=== PATIENT | female | born 1970 | race Caucasian/White ===

== ENCOUNTER → 2020-02-03 13:11 | Outpatient (CLI) | payer BC, SELFPAY | PROVIDERS: PCP Family Medicine; Visit Provider Family Medicine | DX: G47.30 Sleep apnea, unspecified (principal); G47.00 Insomnia, unspecified; I10 Essential (primary) hypertension | CPT/HCPCS: G0399 ==

== ENCOUNTER → 2020-07-14 15:55 | Outpatient (POV) | payer BC, SELFPAY | PROVIDERS: Visit Provider Dermatology | DX: Z00.00 Encounter for general adult medical examination without abnormal findings (principal) ==

== ENCOUNTER → 2021-01-26 11:00 | Outpatient (CLI) | payer BC, SELFPAY ==
[2021-01-26 11:47] LABS: Basophils # 0.1 K/mm3 (0-0.2); Basophils % 0.5 % (0.1-2.0); Eosinophils # 0.1 K/mm3 (0.0-0.4); Eosinophils % 0.6 % (0.1-12.0); Hemoglobin 13.8 g/dL (12.2-16.2); Lymphocytes # 3.4 K/mm3 (0.7-4.5); Lymphocytes % 31.1 % (10-50); Mean Corpuscular HGB Conc 32.8 g/dL (31.8-35.4); Mean Corpuscular Hemoglobin 30.2 pg (27.0-31.2); Mean Corpuscular Volume 92.2 fl (81-99); Mean Platelet Volume 9.3 fl (7.4-10.4); Monocytes # 0.5 K/mm3 (0.1-1.0); Monocytes % 4.8 % (1.7-9.3); Neutrophils # 6.8 K/mm3 (1.8-7.8); Neutrophils % 62.9 % (37.0-80.0); Platelet Count 310 K/mm3 (142-424); Red Blood Count 4.55 M/mm3 (4.20-5.40); Red Cell Distribution Width 14.1 % (11.5-17.5); White Blood Count 10.8 K/mm3 (4.8-10.8)
== END ==
PROVIDERS: PCP Family Medicine; Visit Provider Family Medicine
DX: Z20.822 Contact with and (suspected) exposure to COVID-19 (principal)
CPT/HCPCS: 36415; 85025; C9803; U0003; U0005

== ENCOUNTER 2021-01-30 18:06 | Inpatient (IN) | payer BC, SELFPAY ==
[2021-01-30] VITALS (8 sets, daily range): BP systolic 145–197; BP diastolic 84–116; PULSE 72–95; RESP 16–19; TEMP 36.8–37.7; O2SAT 92–98; BMI 25.0; BMI 25.7
[2021-01-30 18:35] LABS: Microscopic, Urine URINE MICROSCOPIC (MICROSCOPIC)
[2021-01-30 18:37] LABS: Appearance,Urine CLEAR (Clear); Bilirubin,Urine Negative (Negative); Blood, Urine Negative (Negative); Color,Urine YELLOW (Yellow); Glucose,Urine (UA) Negative (Negative); Ketones,Urine TRACE (Negative); Leukocyte Esterase,Urine Negative (Negative); Nitrate,Urine Negative (Negative); PH,Urine 7.5 (5.0-8.5); Protein,Urine TRACE (Negative)
--- NOTE | 2021-01-30 18:41 | HMH.EDABDPAI ---
ED Disposition Condition on Discharge: Good - Critical Care Critical Care Time: No <Paulo Byers - Last Filed: 01/30/21 20:11> <Jamie Merritt - Last Filed: 01/30/21 21:34> Clinical Impression: Renal infarction Abdominal pain Qualifiers: Abdominal location: right lower quadrant Qualified Code(s): R10.31 - Right lower quadrant pain Disposition: Admitted As Inpatient Attestation: On 01/30/21, the high probability of a clinically significant, sudden or life threatening deterioration of the following system(s) required my full and direct attention, intervention and personal management. The time I documented below is in addition to time spent performing reported procedures but includes the following listed in this critical care notation. Medical Decision Making - Medical Records Medical records reviewed: Yes: I reviewed the patient's medical records. - Marcio Inquiry Pt receiving controlled substance: No - Lab Data Result diagrams: 01/30/21 18:25 01/30/21 18:25 - Reevaluation(s) Time: 20:11 <Paulo Byers - Last Filed: 01/30/21 20:11> - Lab Data Lab results reviewed: Yes: I reviewed the patient's lab results. Result diagrams: 01/30/21 18:25 01/30/21 18:25 - CT Data CT Scan: Abdomen, Pelvis Time Received: 21:[address] Reviewed: Yes: I have viewed the radiologist's interpretation Preliminary Findings: Abnormal (renal infart ) - Physician Consults Physician Consulted: evelin Reason -: Admission Additional Consult: parul Reason -: Pt condition <Jamie Merritt - Last Filed: 01/30/21 21:34> Vital Signs: 01/30/21 18:07 01/30/21 20:00 01/30/21 20:30 Temperature 98.2 F Temperature Source Oral Pulse Rate 82 88 Pulse Rate [Radial] 72 Respiratory Rate 18 Blood Pressure 167/115 H 164/116 H Blood Pressure [Right Arm] 197/100 H Blood Pressure Mean [Right Arm] 132 Blood Pressure Position [Right Arm] Sitting 02 Sat by Pulse Oximetry 98 92 L 96 Oxygen Delivery Method Room Air Room Air Room Air 01/30/21 20:53 01/30/21 21:00 Temperature Temperature Source Pulse Rate 95 H 90 Pulse Rate [Radial] Respiratory Rate Blood Pressure 159/108 H 145/86 H Blood Pressure [Right Arm] Blood Pressure Mean [Right Arm] Blood Pressure Position [Right Arm] 02 Sat by Pulse Oximetry 94 L 93 L Oxygen Delivery Method Room Air Room Air - Lab Data Lab Results 01/30/21 18:00: Urine Color Yellow, Urine Appearance Clear, Urine pH 7.5, Ur Specific [place] 1.020, Urine Protein Trace, Urine Glucose (UA) Negative, Urine Ketones Trace, Urine Blood Negative, Urine Nitrate Negative, Urine Bilirubin Negative, Urine Urobilinogen 1.0, Ur Leukocyte Esterase Negative, Urine RBC None, Urine WBC None, Ur Squamous Epith Cells None, Urine Bacteria None 01/30/21 18:25: WBC 12.5 H, RBC 4.68, Hgb 14.2, Hct 44.0, MCV 94.0, MCH 30.3, MCHC 32.2, RDW 13.5, Plt Count 301, MPV 7.6, Neut % (Auto) 68.0, Lymph % (Auto) 25.0, [place] % (Auto) 4.4, Eos % (Auto) 1.9, Baso % (Auto) 0.7, Neut # (Auto) 8.5 H, Lymph # (Auto) 3.1, [place] # (Auto) 0.6, Eos # (Auto) 0.2, Baso # (Auto) 0.1 01/30/21 18:25: Sodium 138, Potassium 3.8, Chloride 102, Carbon Dioxide 28, Anion Gap 11.8, BUN 12, Creatinine 0.70, Estimated Creat Clear 104, Estimated GFR 88, Est GFR ( Amer) 106, Glucose 107 H, Calcium 9.7, Total Bilirubin 0.3, AST 39 H, ALT 31, Alkaline Phosphatase 136 H, Total Protein 7.6, Albumin 4.6, Globulin 3.0, Albumin/Globulin Ratio 1.5 01/30/21 18:25: Lipase 60 01/30/21 18:25: PT 10.1, INR 0.89 L, APTT 26.1 01/30/21 21:01: Lactate 1.0 Orders (Tests/Meds): ED MEDICATIONS Generic Name Dose Route Start Last Admin Trade Name Freq PRN Reason Stop Dose Admin Sodium Chloride 1,000 mls @ 999 mls/hr 01/30/21 20:30 01/30/21 20:53 Sod Chlor 0.9% 1000ml Bag IV 01/30/21 21:30 999 mls/hr .[id number] OSKAR Administration Discontinued Medications Generic Name Dose Route Start Last Admin Trade Name Freq PRN
[2021-01-30 18:50] LABS: Basophils # 0.1 K/mm3 (0-0.2); Basophils % 0.7 % (0.1-2.0); Eosinophils # 0.2 K/mm3 (0.0-0.4); Eosinophils % 1.9 % (0.1-12.0); Hemoglobin 14.2 g/dL (12.2-16.2); Lymphocytes # 3.1 K/mm3 (0.7-4.5); Mean Corpuscular HGB Conc 32.2 g/dL (31.8-35.4); Mean Corpuscular Hemoglobin 30.3 pg (27.0-31.2); Mean Platelet Volume 7.6 fl (7.4-10.4); Monocytes # 0.6 K/mm3 (0.1-1.0); Monocytes % 4.4 % (1.7-9.3); Neutrophils # 8.5 K/mm3 (1.8-7.8); Platelet Count 301 K/mm3 (142-424); Red Blood Count 4.68 M/mm3 (4.20-5.40); Red Cell Distribution Width 13.5 % (11.5-17.5); White Blood Count 12.5 K/mm3 (4.8-10.8)
[2021-01-30 18:52] LABS: Chloride 102 mmol/L (98-107); Potassium 3.8 mmoL/L (3.5-5.1); Sodium 138 mmol/L (136-145)
[2021-01-30 18:54] LABS: Alanine Aminotransferase 31 U/L (12-78); Aspartate Amino Transferase 39 U/L (14-36); Blood Urea Nitrogen 12 mg/dl (7-17); Creatinine Clearance Estimated 104 mL/min (50-200); Estimated Glomerular Filt Rate 88 ml/min (>60); GFR (African American) 106 ML/MIN (>60); Lipase 60 U/L (23-300)
[2021-01-30 18:55] LABS: Albumin Level 4.6 g/dl (3.5-5.0); Albumin/Globulin Ratio 1.5 (1.1-1.8); Alkaline Phosphatase 136 U/L (38-126); Anion Gap 11.8 mEq/L (5-15); Bilirubin,Total 0.3 mg/dl (0.2-1.3); Calcium 9.7 mg/dl (8.4-10.2); Carbon Dioxide 28 mmol/L (22.0-30.0); Glucose 107 mg/dl (74-100); Total Protein,Serum 7.6 g/dl (6.3-8.2)
--- NOTE | 2021-01-30 18:57 | CT_ITS ---
PROCEDURE INFORMATION: Exam: CT Abdomen And Pelvis With Contrast Exam date and time: 01/30/2021 6:57 PM Age: 50 years old Clinical indication: Abdominal pain; Localized; Right lower quadrant (rlq); Prior surgery; Surgery date: 6+ months; Surgery type: Hysterectomy-; Additional info: Rlq abd pain TECHNIQUE: Imaging protocol: Computed tomography of the abdomen and pelvis with contrast. Radiation optimization: All CT scans at this facility use at least one of these dose optimization techniques: automated exposure control; mA and/or kV adjustment per patient size (includes targeted exams where dose is matched to clinical indication); or iterative reconstruction. Contrast material: ISOVUE; Contrast volume: 75 ml; Contrast route: IV; COMPARISON: No relevant prior studies available. FINDINGS: Liver: Normal. No mass. Gallbladder and bile ducts: Normal. No calcified stones. No ductal dilation. Pancreas: Normal. No ductal dilation. Spleen: Normal. No splenomegaly. Adrenal glands: Normal. No mass. Kidneys and ureters: 4 cm area of absent enhancement in the lateral aspect of the mid to upper right kidney. Stomach and bowel: Unremarkable. No obstruction. No mucosal thickening. Appendix: No evidence of appendicitis. Intraperitoneal space: Unremarkable. No free air. No significant fluid collection. Vasculature: Unremarkable. No abdominal aortic aneurysm. Lymph nodes: Unremarkable. No enlarged lymph nodes. Urinary bladder: Unremarkable as visualized. Reproductive: Hysterectomy. Bones/joints: Unremarkable. No acute fracture. Soft tissues: Unremarkable. 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
[2021-01-30 20:54] LABS: Coronavirus 19, PCR Not Detected (NotDetected); Influenza A, PCR Not Detected (NotDetected); Influenza B, PCR Not Detected (NotDetected)
[2021-01-30 21:13] LABS: Activated Partial Thrombo Time 26.1 seconds (22.8-30.6); INR 0.89 (0.9-1.1); Prothrombin Time 10.1 seconds (10.1-12.5)
[2021-01-30 21:27] LABS: C-Reactive Protein 19.7 mg/L (0-4)
[2021-01-30 21:46] LABS: Erythrocyte Sedimentation Rate 25 mm/hr (0-30)
[2021-01-30 21:54] LABS: Procalcitonin < 0.030 ng/mL (0.0-2.0)
--- NOTE | 2021-01-30 22:31 | PC.NURSE ---
PT ARRIVED TO FLOOR VIA W/C FROM ED W/STAFF @ [id number]
[2021-01-31] VITALS: BP 140/94; PULSE 74; RESP 19; TEMP 36.9; O2SAT 97
[2021-01-31 04:00] VITALS: BP 137/84; PULSE 78; RESP 17; TEMP 37; O2SAT 97
[2021-01-31 04:32] VITALS: BMI 24.9
--- NOTE | 2021-01-31 06:14 | PC.NURSE ---
pt admitted last night, pt complains of right lower abdominal pain rating it a 7-8, pt medicated twice through the night, pt has some pain relief after admin of dilaudid but seems to have break through pain 1 hour prior to next due dose, uop good.
[2021-01-31 07:38] VITALS: BP 153/73; PULSE 95; RESP 18; TEMP 36.5; O2SAT 97
[2021-01-31 07:45] LABS: Basophils # 0.1 K/mm3 (0-0.2); Basophils % 0.6 % (0.1-2.0); Eosinophils # 0.2 K/mm3 (0.0-0.4); Eosinophils % 2.3 % (0.1-12.0); Hematocrit 37.5 % (37.0-47.0); Lymphocytes # 3.6 K/mm3 (0.7-4.5); Lymphocytes % 37.7 % (10-50); Mean Corpuscular HGB Conc 32.4 g/dL (31.8-35.4); Mean Corpuscular Hemoglobin 30.6 pg (27.0-31.2); Mean Corpuscular Volume 94.5 fl (81-99); Monocytes # 0.5 K/mm3 (0.1-1.0); Monocytes % 5.5 % (1.7-9.3); Neutrophils # 5.1 K/mm3 (1.8-7.8); Neutrophils % 53.9 % (37.0-80.0); Platelet Count 236 K/mm3 (142-424); Red Blood Count 3.97 M/mm3 (4.20-5.40); Red Cell Distribution Width 13.6 % (11.5-17.5); White Blood Count 9.5 K/mm3 (4.8-10.8)
[2021-01-31 07:51] LABS: Chloride 105 mmol/L (98-107)
[2021-01-31 07:52] LABS: Potassium 3.9 mmoL/L (3.5-5.1); Sodium 138 mmol/L (136-145)
[2021-01-31 07:54] LABS: Blood Urea Nitrogen 7 mg/dl (7-17); Creatinine Clearance Estimated 122 mL/min (50-200); Estimated Glomerular Filt Rate 105 ml/min (>60); GFR (African American) 127 ML/MIN (>60)
[2021-01-31 07:55] LABS: Anion Gap 8.9 mEq/L (5-15); Calcium 8.4 mg/dl (8.4-10.2); Carbon Dioxide 28 mmol/L (22.0-30.0); Chol/HDL Ratio 3.9 (1-3.5); Cholesterol 193 mg/dl (140-200); Glucose 99 mg/dl (74-100); HDL Cholesterol 50 mg/dl (40-60); Magnesium 2.1 mg/dl (1.6-2.3); Triglycerides 279 mg/dl (30-150); VLDL Cholesterol 56 mg/dL (0-40)
[2021-01-31 07:56] LABS: Hemoglobin 12.2 g/dL (12.2-16.2)
[2021-01-31 08:06] LABS: Direct LDL Cholesterol 104.77 mg/dL (100-129)
--- NOTE | 2021-01-31 10:10 | HMH.PHAINT ---
MEDICATION RECONCILIATION COMPLETE USING EXTERNAL PHARMACY FILL HISTORY AND NICK.
--- NOTE | 2021-01-31 10:11 | HMH.PHAVTE ---
[facility] Pharmacy VTE Monitoring - Patient Demographics Admission date: 01/30/21 Report Date: 01/31/21 Time: 10:11 Allergies/Adverse Reactions: Patient Allergies acetaminophen [From Percocet] Allergy (Mild, Verified 01/30/21 18:40) ibuprofen [From Advil] Allergy (Mild, Verified 01/30/21 18:40) oxycodone [From Percocet] Allergy (Mild, Verified 01/30/21 18:40) codeine [CODEINE] Allergy (Unknown, Verified 01/30/21 18:40) morphine Allergy (Verified 01/30/21 18:40) Height: 1.68 m Weight: 70.307 kg Patient Problems: Current Active Problems Abdominal pain (Acute) Renal infarction (Acute) - VTE Risk Labs: VTE Related Lab Results Hgb 12.2 g/dL (12.2-16.2) D 01/31/21 06:15 Hct 37.5 % (37.0-47.0) 01/31/21 06:15 Plt Count 236 K/mm3 (142-424) 01/31/21 06:15 PT 10.1 seconds (10.1-12.5) 01/30/21 18:25 INR 0.89 (0.9-1.1) L 01/30/21 18:25 APTT 26.1 seconds (22.8-30.6) 01/30/21 18:25 BUN 7 mg/dl (7-17) D 01/31/21 06:15 Creatinine 0.60 mg/dl (0.52-1.04) 01/31/21 06:15 Estimated Creat Clear 122 mL/min (50-200) 01/31/21 06:15 Was VTE Risk Assessment Performed: Yes VTE Score: 4 VTE Risk Level: Low Risk Clinical Trial Participant: No - Prophylaxis VTE Prophylaxis Ordered?: Yes Types of VTE Prophylaxis: TEDS Knee High, Pharmacological Location of Applied Device: Bilateral Lower Extremeties Pharmacologic Type: Enoxaparin
--- NOTE | 2021-01-31 11:02 | PC.NURSE ---
spoke with Dr. Walter regarding pts npo status an pain management. She can now eat and new medication ordered
--- NOTE | 2021-01-31 11:13 | PC.NURSE ---
Dr. Oglesby paged
--- NOTE | 2021-01-31 12:59 | HMH.HP ---
*Admission Date: 01/30/21 *Chief complaint: Right lower quadrant pain *History of present illness: This 50-year-old white female began experiencing right lower quadrant pain on Monday evening of 01/29. The pain was progressive and she eventually proceeded to the emergency room on where she was evaluated and admitted. She has experienced nausea but no vomiting. She had a low-grade temperature last night less than 100. She was treated for cold symptoms Monday and Monday of last week and Covid testing was negative at that point. She denies that she has had COVID. She has not been vaccinated. Covid testing in the emergency room on this admission was also negative. She has no prior history of blood clots. 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 She is being treated with Lovenox 70 mg IM twice daily as well as pain medication.. [facility] History I have reviewed the patient's past medical history: Yes Medical History: Reports:: Asthma Denies:: Coronary Artery Disease, Cerebrovascular Accident, Deep Vein Thrombosis, Diabetes Mellitus Type 1, Kidney Stones, Myocardial Infarction, Peripheral Artery Disease, Peripheral Vascular Disease, Pulmonary Embolism, Renal Disease, Transient Ischemic Attacks (TIA) *Have you ever received a pneumonia vaccine?: Yes *Have you received a flu vaccine this season?: No Other Medical History: Reports: Arthritis (Knees). Denies: Anemia Other Surgeries: Yes: Hysterectomy-Partial, Tubal Ligation Amputation: No Fractures: No - *Social History Last grade of school completed: High school graduate Smoking Status: Former smoker (Quit 1998) Alcohol Intake: never (Rare) *Occupational Status:: employed Household Members: spouse *Travel in the last 8 weeks: None Family Hx:: Diabetes (Father), Hypertension (Father), Other (Two children. Her daughter is living, her son ) Review of Systems - Constitutional Denies body ache(s), Denies chills - Eyes Denies change in vision - ENT Reports nasal congestion, Denies abnormal hearing, Denies dizziness - *Cardiovascular Denies chest pain, Denies shortness of breath, Denies rapid, pounding, or irregular heartbeat - *Respiratory Reports chest congestion, Reports cough, Denies shortness of breath - *Gastrointestinal Reports abdominal pain (Right lower quadrant), Denies change in stools, Denies loose stools - *Genitourinary Denies abnormal periods, Denies abnormal vaginal bleeding - *Musculoskeletal Reports joint pain (Knees) - Integumentary/Breasts Denies bleeding lesions, Denies unusual bruising - *Neurologic Denies confusion, Denies dizziness, Denies localized weakness, Denies headache(s) - Psychiatric Reports anxiety, Reports depression - Endocrine Denies excessive sweating - Hematologic/Lymphatic Denies easy bleeding, Denies easy bruising - Allergic/Immunologic Denies GI upset with certain foods Meds Home Medications Medication Instructions Recorded Confirmed Type budesonide-formoterol HFA 160 2 inh INHALATION BID 05/19/17 01/31/21 History mcg-4.5 mcg/actuation aerosol inhaler ropinirole 1 mg tablet 1.5 mg PO HS tab 05/19/17 01/31/21 History alprazolam 1 mg tablet 1 mg PO TID PRN #20 tab 06/25/19 01/31/21 Rx Quetiapine Fumarate [Seroquel] 100 mg PO HS 01/30/21 01/31/21 History estradioL [Estradiol] 2 mg PO DAILY 01/30/21 01/31/21 History Duloxetine HCl [Cymbalta 30mg 30 mg PO BID 01/31/21 01/31/21 History capsule] EPINEPHrine [Epinephrine] 0.3 ml IM NEEDED PRN 01/31/21 01/31/21 History Montelukast Sodium [Singulair 10mg 10 mg PO DAILY 01/31/21 01/31/21 History tablet] Allergies Allergy/AdvReac Type Severity Reaction Status Date / Time acetaminophen [From Percocet] Allergy Mild Verified 01/30/21 18:40 ibuprofen [From Advil] Allergy Mild Verified 01/30/21 18:40 oxycodone [From Percocet] Allergy Mild Verified 01/30/21 18:40 codeine [CODEINE
[2021-01-31 15:00] VITALS: BP 126/79; PULSE 78; RESP 18; TEMP 36.9; O2SAT 92
[2021-01-31 15:55] LABS: Coronavirus 19 IgG Antibody Negative (Negative); Coronavirus 19 IgM Antibody Negative (Negative)
[2021-01-31 19:36] VITALS: BP 146/95; PULSE 88; RESP 18; TEMP 36.6; O2SAT 97
[2021-01-31 19:50] VITALS: O2SAT 98
[2021-02-01] VITALS (11 sets, daily range): BP systolic 139–160; BP diastolic 70–98; PULSE 72–95; RESP 16–20; TEMP 36.6–37.2; O2SAT 93–99; BMI 24.7
--- NOTE | 2021-02-01 | IR_ITS ---
APPROVED REPORT Patient Location: Inpatient PROCEDURES Bilateral selective renal angiogram INDICATION Renal infarction Informed consent was obtained prior to the procedure. COMPLICATIONS NONE Estimated Blood Loss: LESS THAN 10 ML TECHNIQUE 1% lidocaine used to anesthetize the right femoral groin. The right femoral artery was accessed via the Seldinger technique. A 4 [place] sheath was placed in the right femoral artery. The JR4 catheter was used to selectively intubate each renal artery as well as an accessory renal artery involving the right kidney.. At the end of the diagnostic angiogram the patient was transferred to the postop holding area in stable condition for sheath removal. ANGIOGRAPHIC RESULTS The right renal artery has a dual arterial supply. The superior branch supplies 80% of the right kidney and is widely patent. Distally there is a small subsegmental branch which appears to taper to an occlusion with no overt thrombotic or atherosclerotic site. 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 Patent left renal artery PLAN 1. Discontinuation of estradiol 2. Thoracic CTA to look for atherosclerotic plaque with possible etiology for thrombosis/embolic etiologies 3. LDL less than 55 4. Loop recorder to evaluate for possible paroxysmal atrial fibrillation causing an embolic event 5. Supportive care with narcotic analgesics during the prolonged anticipated pain of a renal infarct resolves Electronically signed by : Sal Walter MD 02/01/2021 15:02:45
--- NOTE | 2021-02-01 05:58 | PC.NURSE ---
Pt has slept well t/o shift, alert and oriented x 4. Has had c/o pain and N/V treated with medication per mar with relief noted. Call flor in reach, will continue to monitor.
--- NOTE | 2021-02-01 07:48 | HMH.CNCARD ---
History of Present Illness Consult date: 02/01/21 Requesting physician: Cesar Lam Chief complaint: Abdominal pain, Right renal infarct Additional Medical History:: 1. Asthma 2. Hormone replacement 3. REmote Tobacco use History of present illness: This 50-year-old white female began experiencing right lower quadrant pain on Monday evening of 01/29. The pain was progressive and she eventually proceeded to the emergency room on where she was evaluated and admitted. She has experienced nausea but no vomiting. She had a low-grade temperature last night less than 100. She was treated for cold symptoms Monday and Monday of last week and Covid testing was negative at that point. She denies that she has had COVID. She has not been vaccinated. Covid testing in the emergency room on this admission was also negative. She has no prior history of blood clots. 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 She is being treated with Lovenox 70 mg IM twice daily as well as pain medication. The above per Dr. Lam Patient denies any history of cardiac issues, hypertension, hyperlipidemia, diabetes family history or personal history of clotting disorder. She relates remote tobacco use but nothing recently. She is on estradiol. [facility] History Medical History: Reports:: Asthma Denies:: Coronary Artery Disease, Cerebrovascular Accident, Deep Vein Thrombosis, Diabetes Mellitus Type 1, Kidney Stones, Myocardial Infarction, Peripheral Artery Disease, Peripheral Vascular Disease, Pulmonary Embolism, Renal Disease, Transient Ischemic Attacks (TIA) *Have you ever received a pneumonia vaccine?: Yes *Have you received a flu vaccine this season?: No Other Medical History: Reports: Arthritis (Knees). Denies: Anemia Other Surgeries: Yes: Hysterectomy-Total, Hysterectomy-Partial, Tubal Ligation Amputation: No Fractures: No - *Social History Last grade of school completed: High school graduate Smoking Status: Former smoker (Quit 1998) Alcohol Intake: never (Rare) *Occupational Status:: employed Household Members: spouse *Travel in the last 8 weeks: None Family Hx:: Diabetes (Father), Hypertension (Father), Other (Two children. Her daughter is living, her son ) Meds Home Medications Medication Instructions Recorded Confirmed Type budesonide-formoterol HFA 160 2 inh INHALATION BID 05/19/17 01/31/21 History mcg-4.5 mcg/actuation aerosol inhaler ropinirole 1 mg tablet 1.5 mg PO HS tab 05/19/17 01/31/21 History alprazolam 1 mg tablet 1 mg PO TID PRN #20 tab 06/25/19 01/31/21 Rx Quetiapine Fumarate [Seroquel] 100 mg PO HS 01/30/21 01/31/21 History estradioL [Estradiol] 2 mg PO DAILY 01/30/21 01/31/21 History Duloxetine HCl [Cymbalta 30mg 30 mg PO BID 01/31/21 01/31/21 History capsule] EPINEPHrine [Epinephrine] 0.3 ml IM NEEDED PRN 01/31/21 01/31/21 History Montelukast Sodium [Singulair 10mg 10 mg PO DAILY 01/31/21 01/31/21 History tablet] Allergies Allergy/AdvReac Type Severity Reaction Status Date / Time acetaminophen [From Percocet] Allergy Mild Verified 01/30/21 18:40 ibuprofen [From Advil] Allergy Mild Verified 01/30/21 18:40 oxycodone [From Percocet] Allergy Mild Verified 01/30/21 18:40 codeine [CODEINE] Allergy Unknown Verified 01/30/21 18:40 morphine Allergy Verified 01/30/21 18:40 Exam Vital signs and Labs for Last 24 Hours: Temp Pulse Resp BP Pulse Ox 98.1 F 78 18 145/96 H 95 02/01/21 07:15 02/01/21 07:15 02/01/21 07:15 02/01/21 07:15 02/01/21 07:15 Laboratory Results - last 24 hr 01/31/21 06:15: WBC 9.5, RBC 3.97 L, Hgb 12.2 D, Hct 37.5, MCV 94.5, MCH 30.6, MCHC 32.4, RDW 13.6, Plt Count 236, MPV 8.0, Neut % (Auto) 53.9, Lymph % (Auto) 37.7, [place] % (Auto) 5.5, Eos % (Auto) 2.3, Baso % (Auto) 0.6, Neut # (Auto) 5.1, Lymph # (Auto) 3.6, [place] # (Auto) 0.5, Eos # (Auto) 0.2, Baso # (Auto) 0.1 01/31/21 06:15: So
--- NOTE | 2021-02-01 07:53 | CA_ITS ---
APPROVED REPORT EXAM: Comprehensive 2D, Doppler, and color-flow Echocardiogram Photographic Technician: Meghan Montalvo, RT(R) Ht: 5 ft 6 in Wt: 152lbs BSA: 1.78 BP: 153/73 mmHg Indications: family hx of HD, rt renal infarct 2D Dimensions LVOT 1.81 cm (M/F) 1.5-2.5 LVEF (Wright's) 43.60 % F: 54 - 74 LV Volume 109.30 mL F: 46 - 106 LV Volume Index 61.40 mL/m2 F: 29 - 61 LA Volume 44.70 mL LA Volume Index 25.11 mL/m2 (M/F) 16-34 M-Mode Dimensions RVDd 2.21 cm (0.9-2.6) LA Diam 2.29 cm (1.9-4.0) LVDd 4.59 cm (3.5-5.7) Ao Diam 2.29 cm (2.0-3.7) LVDs 3.32 cm (3.5-5.7) IVSd 0.70 cm (0.6-1.1) PWd 0.74 cm (0.6-1.1) EF (Teich) 53.70% FS 27.70% EDV (Teich) 96.80 mL ESV (Teich) 44.80 mL LV Diastology E Decel Time 200.00 (160-240 msec) E/A Ratio 1.2 MED E' 9.50 (< 7 cm/sec) E'/MED E' Ratio 9.99 (>14) LAT E' 12.60 (<10 cm/sec) E/LAT E' Ratio 7.53 (>14) Mitral Valve MV E Max Hoang. 95.00 (40-130 cm/s) MV A Velocity 79.00 (40-130 cm/s) E/A Ratio 1.20 MV Decel. Time 200.00 (160-240 ms) MV PHT 59.00 ms Left Ventricle Left atrium is normal size, left ventricle is normal size, there is no concentric left ventricular hypertrophy, visually estimated ejection fraction 55% with no regional wall motion abnormality, diastolic parameters are within normal range. Right Ventricle Right atrium right ventricle is normal size and contractility. Aortic Valve Aortic valve is grossly normal, there is no aortic stenosis or aortic insufficiency. Mitral Valve Mitral valve grossly normal, there is trace mitral regurgitation. Tricuspid Valve Tricuspid valve grossly normal, there is trace tricuspid regurgitation, tricuspid regurgitation jet velocity is inadequate for calculation of the right ventricular systolic pressure. Pulmonic Valve Pulmonic valve is poorly visualized. Great Vessels Aortic root is normal size. Inferior vena cava normal size with normal inspiratory collapse. Pericardium No significant pericardial effusion. Conclusion 1. Normal left ventricular size, preserved left ventricular systolic function, visually estimated ejection fraction 55% with no regional wall motion abnormality, diastolic parameters are within normal range. 2. Trace mitral and tricuspid regurgitation. 3. No significant pericardial effusion noted. 4. Inferior vena cava is normal size with normal inspiratory collapse. Electronically signed by : Sumit Luna MD 02/01/2021 21:51:37
--- NOTE | 2021-02-01 08:32 | P.PN_ITS ---
Internal Medicine - PN: Subj *Date: 02/01/21 *Time: 08:32 Interval history: Patient had a poor night. She states she had pain in the right lower quadrant relieved briefly for about an hour with pain medicine. She is also had nausea and did vomit. She is n.p.o. at present. She states she is voiding QS. Bowels have not moved. Cardiology has seen her this a.m. with the following documentation: Assessment and Plan for all problems:: 1. Right renal infarct, etiology unknown but pt is on hormone replacement and is a former smoker. Will plan to proceed with renal angiogram with further recommendations to follow. Continue anticoagulation but will hold lovenox this AM for cath. 2. Hormone replacement 3. Former smoker [facility] Pre-cath Criteria Risks and benefits:: We will plan to proceed with LHC/coronary angiography with right radial access. The patient has been educated on the risks and benefits of proceeding with LHC/coronary angiography with right radial access. The patient verbalized understanding and is agreeable in proceeding with the procedure. Exam Vital signs and Labs for Last 24 Hours: Temp Pulse Resp BP Pulse Ox 98.1 F 78 18 145/96 H 95 02/01/21 07:15 02/01/21 07:15 02/01/21 07:15 02/01/21 07:15 02/01/21 07:15 Laboratory Results - last 24 hr 01/31/21 14:30: SARS-CoV-2 IgG Ab (Rapid) Negative, SARS-CoV-2 IgM Ab (Rapid) Negative I & O for Last 24 hours: Intake & Output 01/29/21 01/30/21 01/31/21 02/01/21 11:59 11:59 11:59 11:59 Intake Total 1755 / 1755 480 / 480 Output Total 900 / 900 Balance 855 / 855 480 / 480 Weight 155 lb 154 lb 5.177 oz - Constitutional no acute distress Comments: Lying on her right side and appears uncomfortable - *Routine Respiratory Exam Present: CTA bilaterally (Anteriorly and posteriorly) - *Routine Cardiovascular Exam Present: RRR - *Routine Abdominal Exam Present: soft, normoactive bowel sounds, tenderness (Right mid to lower quadrant). Absent: distended - *Routine Extremities Exam Absent: edema, calf tenderness - *Routine Neurological Exam Present: alert, oriented X3 Assessment and Plan (1) Respiratory infection Status: Acute Category: Medical Code(s): J98.8 - Other specified respiratory disorders (2) Abdominal pain Status: Acute Qualifiers: Abdominal location: right lower quadrant Qualified Code(s): R10.31 - Right lower quadrant pain Category: Medical Code(s): R10.9 - Unspecified abdominal pain (3) Renal infarction Status: Acute Category: Medical Code(s): N28.0 - Ischemia and infarction of kidney - Assessment and plan all Dx Assessment and Plan for all problems:: Patient will have a renal angiogram and a heart cath as per cardiology. Venous Doppler studies of lower extremities have been completed and are pending.
--- NOTE | 2021-02-01 13:30 | CA_ITS ---
APPROVED REPORT Bilateral Lower Extremity Venous Study for DVT. Scientific Linguist: ROBERT Indications renal infarct Vein Imaging CFV (R): compressive, spontaneous, phasic, augmentation SFJ (R): compressive, spontaneous, phasic, augmentation FEM (R): compressive, spontaneous, phasic, augmentation POP (R): compressive, spontaneous, phasic, augmentation DFV (R): compressive, spontaneous, phasic, augmentation PTV (R): compressive, spontaneous, phasic, augmentation GSV (R): compressive, spontaneous, phasic, augmentation SSV (R): compressive, spontaneous, phasic, augmentation Peroneals (R):compressive, spontaneous, phasic, augmentation GAS (R): compressive, spontaneous, phasic, augmentation CFV (L): compressive, spontaneous, phasic, augmentation SFJ (L): compressive, spontaneous, phasic, augmentation FEM (L): compressive, spontaneous, phasic, augmentation POP (L): compressive, spontaneous, phasic, augmentation DFV (L): compressive, spontaneous, phasic, augmentation PTV (L): compressive, spontaneous, phasic, augmentation GSV (L): compressive, spontaneous, phasic, augmentation SSV (L): compressive, spontaneous, phasic, augmentation Peroneals (L):compressive, spontaneous, phasic, augmentation GAS (L): compressive, spontaneous, phasic, augmentation Findings Color flow duplex demonstrates no evidence of DVT of the following bilateral lower extremity Veins:Common Femoral Vein, Femoral Vein, Popliteal Vein, Posterior Tibial Veins, Peroneal Veins, Deep Femoral Vein. Right proximal posterior tibial veins demonstrate slow flow but with complete compressions. Negative for DVT. Conclusion Right proximal posterior tibial veins demonstrate slow flow but with complete compressions. Negative for DVT. Electronically signed by : Carlos Rico MD 02/01/2021 16:50:29
--- NOTE | 2021-02-01 16:48 | PC.NURSE ---
PT IS RESTING IN BED. PT MEDICATED PER MAR FOR DISCOMFORT. PT STATES HER PAIN HAS IMPROVED SINCE ARRIVING BACK FROM THE [facility]. TOLERATING LIQUIDS. CATH DRESSING C/D/I. LUNG SOUNDS CLEAR. ABDOMEN SOFT/NON TENDER WITH ACTIVE BOWEL SOUNDS. VSS. WILL CONTINUE TO MONITOR.
--- NOTE | 2021-02-01 16:56 | HMH.CONS ---
*Admission Date: 01/30/21 *Reason for consult:: Right segmental renal infarction *History of present illness: 50-year-old white female with right lower quadrant pain for 2 days. Complaints emergency room where CT scan showed a right renal infarction in the segment of the kidney. She has had some associated nausea. She denies any gross hematuria. She denies a history of any arrhythmias, stroke, recent trauma prior embolic phenomenon. She was placed on Lovenox twice daily on admission. Cardiac work-up has included bilateral renal arteriograms which are consistent with a right segmental infarction. Patient continues to have some right lower quadrant pain and nausea. Her white count and renal function are within normal limits. Her risk factors include distant history of smoking and control pills. [facility] [place] History Medical History: Reports:: Asthma Denies:: Coronary Artery Disease, Cerebrovascular Accident, Deep Vein Thrombosis, Diabetes Mellitus Type 1, Kidney Stones, Myocardial Infarction, Peripheral Artery Disease, Peripheral Vascular Disease, Pulmonary Embolism, Renal Disease, Transient Ischemic Attacks (TIA) *Have you ever received a pneumonia vaccine?: Yes *Have you received a flu vaccine this season?: No Other Medical History: Reports: Arthritis (Knees). Denies: Anemia Other Surgeries: Yes: Hysterectomy-Total, Hysterectomy-Partial, Tubal Ligation Amputation: No Fractures: No - *Social History Last grade of school completed: High school graduate Smoking Status: Former smoker (Quit 1998) Alcohol Intake: never (Rare) *Occupational Status:: employed Household Members: spouse *Travel in the last 8 weeks: None Family Hx:: Diabetes (Father), Hypertension (Father), Other (Two children. Her daughter is living, her son ) Review of Systems - Review of Systems Review of systems:: pertinent systems reviewed and negative unless documented below - *Neurologic Denies abnormal hearing, Denies confusion, Denies dizziness, Denies localized weakness, Denies headache(s) Meds Home Medications Medication Instructions Recorded Confirmed Type budesonide-formoterol HFA 160 2 inh INHALATION BID 05/19/17 01/31/21 History mcg-4.5 mcg/actuation aerosol inhaler ropinirole 1 mg tablet 1.5 mg PO HS tab 05/19/17 01/31/21 History alprazolam 1 mg tablet 1 mg PO TID PRN #20 tab 06/25/19 01/31/21 Rx Quetiapine Fumarate [Seroquel] 100 mg PO HS 01/30/21 01/31/21 History estradioL [Estradiol] 2 mg PO DAILY 01/30/21 01/31/21 History Duloxetine HCl [Cymbalta 30mg 30 mg PO BID 01/31/21 01/31/21 History capsule] EPINEPHrine [Epinephrine] 0.3 ml IM NEEDED PRN 01/31/21 01/31/21 History Montelukast Sodium [Singulair 10mg 10 mg PO DAILY 01/31/21 01/31/21 History tablet] Allergies Allergy/AdvReac Type Severity Reaction Status Date / Time acetaminophen [From Percocet] Allergy Mild Verified 01/30/21 18:40 ibuprofen [From Advil] Allergy Mild Verified 01/30/21 18:40 oxycodone [From Percocet] Allergy Mild Verified 01/30/21 18:40 codeine [CODEINE] Allergy Unknown Verified 01/30/21 18:40 morphine Allergy Verified 01/30/21 18:40 Exam Vital signs and Labs for Last 24 Hours: Temp Pulse Resp BP Pulse Ox 98.4 F 73 16 153/73 H 94 L 02/01/21 16:00 02/01/21 16:15 02/01/21 16:15 02/01/21 16:15 02/01/21 16:15 I & O for Last 24 hours: Intake & Output 01/29/21 01/30/21 01/31/21 02/01/21 23:59 23:59 23:59 23:59 Intake Total 1000 / 1000 1235 / 1235 0 / 0 Output Total 900 / 900 Balance 1000 / 800 335 / 335 0 / 0 Weight 70.307 kg 70.307 kg 70 kg - Constitutional no acute distress - *Routine HEENT Exam Head: Present: normocephalic Eye: Present: EOMI, PERRL ENT: Present: mucous membranes moist - *Routine Neck Exam Absent: lymphadenopathy - *Routine Respiratory Exam Absent: accessory muscle use - *Routine Cardiovascular Exam Absent: JVD - *Routine Abdominal Exam Absent: distended - *Routi
[2021-02-01 17:23] LABS: Homocyst(e)ine 9.4 umol/L (0.0-14.5)
[2021-02-02 04:00] VITALS: BP 152/88; PULSE 79; RESP 16; TEMP 37.7; O2SAT 98
--- NOTE | 2021-02-02 07:26 | CT_ITS ---
PROCEDURE: CT ANGIO CHEST CLINCIAL INDICATION: Renal infarct, possible aortic plaque COMPARISON: CT CTAC CTA-CHEST from 07/19/2012 TECHNIQUE: IV Contrast: 70ML Isovue 370 Axial images obtained with sagittal and coronal reformats. All CT scans at the facility use one or more dose reduction, viz: automated exposure control, ma/kV adjustment per patient size (including targeted exams where dose is matched to indication, i.e. head), or iterative reconstruction technique. FINDINGS: No evidence of aortic aneurysm or dissection. No atherosclerotic ulcerating plaques apparent. No calcific plaque evident. No central pulmonary embolus. No mediastinal or hilar mass or adenopathy. There are trace bilateral pleural effusions. No areas of infiltrate. No suspicious pulmonary nodules. No acute bony findings. IMPRESSION: Negative CTA of the thoracic aorta. Trace bilateral pleural effusions. Dictated by: Carlos Rico MD 02/02/2021 11:23 Carlos Rico MD in [place] 02/02/2021 11:23
[2021-02-02 08:00] VITALS: BP 133/83; PULSE 81; RESP 16; TEMP 36.9; O2SAT 96
--- NOTE | 2021-02-02 08:36 | HMH.ACPN2 ---
Internal Medicine - PN: Subj *Date: 02/02/21 *Time: 08:36 Interval history: Patient states she is much better today. She rates her pain a 3-4 where it is been greater than 10 yesterday. She did have some nausea during the night. Venous Doppler study yesterday showed Slow flow in the right proximal posterior tibia. Negative for DVT. She is also been seen by neurology this morning who states patient has had a segmental right renal infarct causing some right lower quadrant pain and nausea. Renal arteriogram consistent with segmental infarct. No other filling defects noted in either kidney.Agrees with proceeding with CTA. He also noted that symptoms should diminish over the next 2 to 3 days and will follow. Exam Vital signs and Labs for Last 24 Hours: Temp Pulse Resp BP Pulse Ox 98.5 F 81 16 133/83 96 02/02/21 08:00 02/02/21 08:00 02/02/21 08:00 02/02/21 08:00 02/02/21 08:00 Laboratory Results - last 24 hr 01/30/21 21:28: Homocysteine 9.4 I & O for Last 24 hours: Intake & Output 01/30/21 01/31/21 02/01/21 02/02/21 11:59 11:59 11:59 11:59 Intake Total 1755 / 1755 480 / 480 480 / 480 Output Total 900 / 900 Balance 855 / 855 480 / 480 480 / 480 Weight 155 lb 154 lb 5.177 oz - Constitutional no acute distress Comments: Appears comfortable today during exam. - *Routine Respiratory Exam Present: CTA bilaterally (Anteriorly and posteriorly) - *Routine Cardiovascular Exam Present: RRR - *Routine Abdominal Exam Present: soft, normoactive bowel sounds, tenderness (Right mid and lower quadrant) - *Routine Extremities Exam Present: pulses intact. Absent: edema, calf tenderness - *Routine Neurological Exam Present: alert, oriented X3 Assessment and Plan (1) Respiratory infection Status: Acute Category: Medical Code(s): J98.8 - Other specified respiratory disorders (2) Abdominal pain Status: Acute Qualifiers: Abdominal location: right lower quadrant Qualified Code(s): R10.31 - Right lower quadrant pain Category: Medical Code(s): R10.9 - Unspecified abdominal pain (3) Renal infarction Status: Acute Category: Medical Code(s): N28.0 - Ischemia and infarction of kidney - Assessment and plan all Dx Assessment and Plan for all problems:: CTA of abdomen to be done today as well as CT of chest. Cardiology has seen patient and will place a loop recorder today. Possibly home after these have been completed.
--- NOTE | 2021-02-02 08:37 | HMH.PNCARD ---
Subjective Date: 02/02/21 Time: 08:37 Principal diagnosis: renal infarct Interval history: 50-year-old white female sitting in bedside chair in no acute distress. Right lower abdominal pain has improved and patient looks more alert today. Discussed the findings of the renal angiogram yesterday and recommendation for CTA of the chest to look for plaque in the aorta as a possible source for embolus. We will also implant a loop recorder prior to discharge to evaluate for paroxysmal atrial fibrillation. No anticoagulation recommended at this time. Exam Vital signs and Labs for Last 24 Hours: Temp Pulse Resp BP Pulse Ox 98.5 F 81 16 133/83 96 02/02/21 08:00 02/02/21 08:00 02/02/21 08:00 02/02/21 08:00 02/02/21 08:00 Laboratory Results - last 24 hr 01/30/21 21:28: Homocysteine 9.4 I & O for Last 24 hours: Intake & Output 01/30/21 01/31/21 02/01/21 02/02/21 11:59 11:59 11:59 11:59 Intake Total 1755 / 1755 480 / 480 480 / 480 Output Total 900 / 900 Balance 855 / 855 480 / 480 480 / 480 Weight 155 lb 154 lb 5.177 oz - Constitutional no acute distress - *Routine HEENT Exam Head: Present: normocephalic Eye: Present: EOMI, PERRL ENT: Present: mucous membranes moist - *Routine Neck Exam Present: supple. Absent: lymphadenopathy - *Routine Respiratory Exam Present: CTA bilaterally - *Routine Cardiovascular Exam Present: RRR - *Routine Abdominal Exam Present: soft, normoactive bowel sounds. Absent: tenderness - *Routine Extremities Exam Absent: cyanosis, clubbing, edema - *Routine Skin Exam Present: warm. Absent: rash - *Routine Neurological Exam Present: alert, oriented X3 Progress Note: A&P (1) Respiratory infection Status: Acute (2) Abdominal pain Status: Acute (3) Renal infarction Status: Acute Assessment and Plan for All Diagnoses:: 1. Mid to upper lateral infarct of the right kidney. Etiology unknown. CTA of the chest in process to look for aortic plaque. We will implant loop recorder prior to discharge. Patient could be discharged later today from cardiology standpoint. Statin therapy added to reduce plaque burden. Follow-up in our office in 1 week. 2. Hormone replacement has been discontinued. 3. Former smoker.
--- NOTE | 2021-02-02 08:44 | CT_ITS ---
Procedure: CT ANGIO ABDOMEN CLINICAL HISTORY: Right renal infarction COMPARISON: CT CT ABDOMEN PELVIS W CON from 01/30/2021 XA CL RENAL ANGIOGRAM BI from 02/01/2021 TECHNIQUE: IV Contrast: 100ml Isovue 370 in conjunction with the chest CT. Axial images obtained with sagittal and coronal reformats. All CT scans at the facility use one or more dose reduction, viz: automated exposure control, ma/kV adjustment per patient size (including targeted exams where dose is matched to indication, i.e. head), or iterative reconstruction technique. FINDINGS: No evidence of aortic aneurysm. Small amount of calcific plaque is present in the lower abdominal aorta well below the level of the renal arteries. No atheromatous plaque evident. No evidence of aortic dissection. 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 Superior mesenteric artery has an unremarkable appearance. The MAYA is patent. There are 2 right renal arteries. Dominant artery is superior artery arising at the L1 level. There is irregularity of the wall of this artery which begins approximately 4 cm distal to its origin and continues into the inter lobar and interlobular segments. No obvious occlusion or aneurysm. There is some slight stranding of the fat along the course of this artery into the right renal hilum with some increase in the soft tissue density at these areas. The 2nd right renal artery is more inferior originating at the L2 level. There also appears to be some irregularity of the lumen of this artery is well. This artery supplies the lower pole of the right kidney anteriorly.. The left renal artery has an unremarkable appearance and is singular. Wedge-shaped filling defects are present in the upper pole of the right kidney posteriorly. This defect is larger when compared to the previous exam is somewhat less well-defined. There is also a small defect involving the posterior aspect of the right kidney. The upper pole of the right kidney posteriorly with 2 defects also in the lower pole of the right kidney. No new these latter defects have developed since the previous exam. There is mild stranding of the right perinephric renal fat. No intestinal obstruction or free air. No acute bony anomalies. IMPRESSION: 1. Luminal irregularity of the mid and distal aspect of the right superior renal artery with narrowing and stranding of the Torie arterial fat consistent with vasculitis with multiple right renal infarcts which have progressed since the previous exam. 2. 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 3. No evidence of aortic aneurysm, dissection, or atheromatous ulcerating plaques. Dictated by: Carlos Rico MD 02/02/2021 11:46 Carlos Rico MD in [facility] 02/02/2021 11:46
[2021-02-02 11:30] VITALS: BP 137/76; PULSE 76; RESP 18; O2SAT 98
--- NOTE | 2021-02-02 11:51 | HMH.LOOP ---
[facility] Loop Recorder Date: 02/02/21 Time: 11:51 Procedure Performed:: Implantation of loop recorder Indication:: Suspected embolic renal infarct Evaluate for paroxysmal atrial fibrillation Technique:: Patient was brought to the cardiac Injection Molding Machine Setter. After informed consent obtained, 1% lidocaine with epinephrine was used to anesthetize the site along the left anterior aspect of the chest near the sternal border. Using the preformed scalpel, an incision was made and using the supplied preloaded apparatus, the loop recorder was placed subcutaneously without difficulty. Following the deployment of the loop recorder interrogation of the device was performed to ensure appropriate voltage was being detected. Once this was verified, Steri-Strips were placed over the incision and the patient was prepped to discharge home. Patient tolerated the procedure well with minimal discomfort. Impression:: Successful implantation of loop recorder Serial Number:: [employer] Lux-DX model number M301 Serial #[id number] Plan:: Routine postop care
[2021-02-02 11:56] VITALS: BP 148/90; PULSE 78; RESP 18; TEMP 37.2; O2SAT 98
--- NOTE | 2021-02-02 11:58 | DIET.NUTRFU ---
Saw resident today, she plans to discharge. She feels her appetite/intake are slowly improving. Still c/o some nausea d/t pain pills. She practices a keto diet at home, has lost 20# desired so far. RD encouraged some healthy fruits to add in too. No additional dietary needs at this time.
[2021-02-02 14:41] LABS: Anti-Thrombin III Antigen 84 % (72-124); Antithrombin Activity 95 % (75-135); Factor VIII Activity 119 % (56-140); Protein C Functional 157 % (73-180); Protein S, Free 117 % (61-136); Protein S, Total 88 % (60-150); Protein S-Functional 108 % (63-140)
[2021-02-02 15:40] VITALS: BP 129/86; PULSE 93; RESP 16; TEMP 37.5; O2SAT 97
--- NOTE | 2021-02-02 16:57 | PC.NURSE ---
PT IS READY TO BE DISCHARGED. MEDS WERE SENT TO CLINIC PHARMACY. GABRIEL NICHOLS STATED PT WILL NEED TO CONTINUE LIPITOR WHICH WAS CALLED IN AT THE CLINIC PHARMACY WELL. PT IS AWARE THAT SHE IS SUPPOSED TO COME BACK FOR TONA ON MONDAY. THIS SHIFT PT HAS BEEN AMBULATING IN THE ROOM. EATING AND DRINKING WELL. NO COMPLAINTS OF PAIN OR NAUSEA. LUNG SOUNDS CLEAR. ABDOMEN SOFT/NON TENDER WITH ACTIVE BOWEL SOUNDS. DISCHARGE/MEDICATION EDUCATION PROVIDED.
[2021-02-04 06:44] LABS: Protein C Antigen 131 % (60-150)
--- NOTE | 2021-02-08 23:47 | HMH.DCSUM ---
General - General Admission date:: 01/30/21 Discharge date: 02/02/21 HPI HPI: This 50-year-old white female began experiencing right lower quadrant pain on Monday evening of 01/29. The pain was progressive and she eventually proceeded to the emergency room on where she was evaluated and admitted. She has experienced nausea but no vomiting. She had a low-grade temperature last night less than 100. She was treated for cold symptoms Monday and Monday of last week and Covid testing was negative at that point. She denies that she has had COVID. She has not been vaccinated. Covid testing in the emergency room on this admission was also negative. She has no prior history of blood clots. 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 She is being treated with Lovenox 70 mg IM twice daily as well as pain medication.. Hospital Course Hospital Course: Dr. Walter and Dr. Oglesby were consulted. Covid IgM and EGD were ordered and were both negative. Cardiology saw the patient and a renal angiogram was performed. The area of infarct was identified without possibility of intervention and they recommended medical management. They placed a loop recorder to assess for PAF as the cause of the possible thrombosis. She was also started on a statin. She had an echo showing an EF of 55% and venous Dopplers showing no DVT. Cardiology also recommended discontinuation of her estradiol and a thoracic CTA to look for atherosclerotic plaque. Her chest CTA showed trace bilateral pleural effusions but was otherwise negative. Abdominal CTA showed luminal irregularity of the mid and distal aspect of the right renal artery with multiple right renal infarcts which had progressed since the previous exam. 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 Dr. Walter recommended the patient remain on Lovenox until a TONA with a bubble study could be performed to look for PFO as a possible source for renal infarct. She was also seen in consultation by Dr. Oglesby who agreed with cardiology's recommendations. The patient did feel much better by 02/02/2021. Her pain improved and she was stable to be discharged. Objective Vital signs: Temp Pulse Resp BP Pulse Ox 99.5 F 93 H 16 129/86 97 02/02/21 15:40 02/02/21 15:40 02/02/21 15:40 02/02/21 15:40 02/02/21 15:40 Narrative: - Constitutional mild distress (Due to pain) - *Routine HEENT Exam Head: Present: normocephalic Eye: Present: EOMI, PERRL ENT: Present: mucous membranes moist - *Routine Neck Exam Present: supple. Absent: lymphadenopathy - *Routine Respiratory Exam Present: CTA bilaterally - *Routine Cardiovascular Exam Present: RRR - *Routine Abdominal Exam Present: soft, tenderness (Right sided). Absent: distended - *Routine Rectal Exam Rectal:: deferred - *Routine Genitalia Exam Genitalia:: deferred - *Routine Extremities Exam Absent: cyanosis, clubbing, edema - *Routine Skin Exam Present: warm. Absent: petechiae, rash - *Routine Neurological Exam Present: alert, oriented X3 DS: Diagnosis - Discharge Diagnosis (1) Respiratory infection Status: Acute (2) Abdominal pain Status: Acute (3) Renal infarction Status: Acute Discharge Plan - Patient Discharge Instructions ACTIVITY: Limited activity DIET: advance to your usual diet Patient Instructions: Renal Artery Stenosis, DI for Cardiac Catheterization, DI for Abdominal Pain-Adult, DI for Surgical Site Infection - Follow up Plan Disposition: Home, Self-Care Condition at discharge:: Stable Home Medications: Home Medications Medication Instructions Recorded Confirmed Type budesonide-formoterol HFA 160 2 inh INHALATION BID 05/19/17 01/31/21 History mcg-4.5 mcg/actuation aerosol inhaler ropinirole 1 mg tablet 1.5 mg PO HS tab 05/19/17 01/31/21 History a
[2021-04-14 10:05] LABS: Antinuclear Antibodies (ANA) NEGATIVE
== END 2021-02-02 17:33 | disposition home or self-care (01) | DRG 983 ==
LOC: ER 20:12 → 2ND 21:22
PROVIDERS: Emergency Medicine; Internal Medicine; Admitting Provider Family Medicine; Emergency Provider Emergency Medicine; PCP Family Medicine; Visit Provider Family Medicine
PROC: 0JH632Z Insertion of Monitoring Device into Chest Subcutaneous Tissue and Fascia, Percutaneous Approach (ICD-10-PCS; principal; 2021-02-01 12:30)
DX: N28.0 Ischemia and infarction of kidney (principal); I77.1 Stricture of artery; Z20.822 Contact with and (suspected) exposure to COVID-19; J45.909 Unspecified asthma, uncomplicated; Z87.891 Personal history of nicotine dependence; I48.0 Paroxysmal atrial fibrillation
CPT/HCPCS: 33285; 36252; 36415; 71275; 74175; 74177; 80048; 80053; 80061; 81001; 81241; 83090; 83605; 83690; 83735; 84145; 85025; 85240; 85300; 85301; 85302; 85305; 85306; 85610; 85651; 85730; 86038; 86140; 86148; 86328; 93306; 93970; 96365; 96372; 96375; 96376; 99152; 99284; C1725; C1769; C1894; C9803; J1644; J2405; Q9967; U0003; U0005

== ENCOUNTER 2021-02-05 07:28 | Day surgery (SDC) | payer BC, SELFPAY ==
--- NOTE | 2021-02-05 07:34 | CA_ITS ---
APPROVED REPORT EXAM: Comprehensive 2D, Doppler, and color-flow Echocardiogram [employer] Developer: Brittani Yeh RDCS Ht: 5 ft 7 in Wt: 165lbs BSA: 1.86 BP: 110/72 mmHg Indications: /ro pfo Procedure After obtaining informed consent, patient underwent transesophageal echo in the [facility]. Type of Sedation : Conscious Sedation Sedation was administered by Augie Thomas C.R.N.A. Transesophageal probe was inserted and advanced into esophagus without difficulty by Dr. Donell Manning. The TONA was performed without complications. Throughout the procedure, the blood pressure, pulse oximetry, cardiac rhythm, and rate were monitored. The patient tolerated the procedure without adverse effects. Recovery from conscious sedation was uneventful and vital signs were stable. Left Ventricle Left ventricle is normal size with preserved left ventricular systolic function, visually estimated ejection fraction 55% in the obtained views. Right Ventricle Right ventricle is normal size and contractility. Atria Left atrium and left atrial appendage free of thrombus. Right atrium is normal size. Intra-atrial septum is intact, there is no flow across the atrial septum, agitated saline contrast study fails to identify intracardiac shunt. Aortic Valve Aortic valve is minimally thickened and fibrosed there is no aortic stenosis or aortic insufficiency. Mitral Valve Mitral valve grossly normal, there is trace mitral regurgitation. Tricuspid Valve Tricuspid valve grossly normal, there is trace tricuspid regurgitation. Pulmonic Valve Pulmonic valve is grossly normal. Great Vessels Aortic root is normal size. Ascending and visualized part of the descending thoracic aorta is normal Pericardium No significant pericardial effusion noted. Conclusion 1. Normal left ventricular size, preserved left ventricular systolic function, visually estimated ejection fraction 55% with no obvious regional wall motion abnormality. 2. No obvious intracardiac shunt seen. 3. No significant pericardial effusion noted. Electronically signed by : Sumit Luna MD 02/05/2021 13:27:04
[2021-02-05 07:40] VITALS: BMI 24.3
[2021-02-05 08:05] VITALS: BP 125/83; PULSE 87; RESP 16; TEMP 36.8; O2SAT 96
[2021-02-05 08:09] VITALS: PULSE 88
[2021-02-05 09:29] VITALS: BP 121/77; PULSE 75; RESP 20; O2SAT 97
[2021-02-05 09:45] VITALS: BP 127/80; PULSE 80; RESP 18; O2SAT 98
--- NOTE | 2021-02-05 10:28 | P.PN_ITS ---
[facility] Anesthesia Checklist - Patient Identification Patient Identification: Arm Band - Structural Data Admitted From: Home Planned Operative Procedure/s: TONA Consent for Planned Operative Procedure(s) Verified: Yes Verified Documents: Surgical Consent, History and Physical - NPO Status Verified Time NPO: 00:00 - Additional verifications Anesthesia Reactions: No - Airway Assessment C-Spine Mobility Assessed: Yes (mp2) TMJ Mobility Assessed: Yes Dentition: Good Dentition - Neurological Assessment Level of Consciousness: Awake, Alert - Anesthesia Plan Anesthesia Risk discussed: Yes Anesthesia Plan: Verified ASA Class: II Anesthesia Type: MAC [facility] History I have reviewed the patient's past medical history: Yes Medical History: Reports:: Asthma Denies:: Coronary Artery Disease, Cerebrovascular Accident, Deep Vein Thro mbosis, Diabetes Mellitus Type 1, Kidney Stones, Myocardial Infarction, Peripheral Artery Disease, Peripheral Vascular Disease, Pulmonary Embolism, Renal Disease, Seizures, Transient Ischemic Attacks (TIA) *Have you ever received a pneumonia vaccine?: Yes *Have you received a flu vaccine this season?: No Other Medical History: Reports: Arthritis (Knees). Denies: Anemia Anesthesia experience/problems:: nac Other Surgeries: Yes: Hysterectomy-Total, Hysterectomy-Partial, Tubal Ligation Amputation: No Fractures: No - *Social History Last grade of school completed: High school graduate Smoking Status: Former smoker (Quit 1998) Alcohol Intake: never Substance Use Type: denies use *Occupational Status:: unemployed Housing: house Household Members: spouse *Travel in the last 8 weeks: None Family Hx:: Diabetes (Father), Hypertension (Father), Other (Two children. Her daughter is living, her son )
== END 2021-02-05 10:49 | disposition home or self-care (01) ==
LOC: CATHLAB 07:29
PROVIDERS: Internal Medicine; PCP Family Medicine; Visit Provider Internal Medicine Cardiovascular Disease
DX: I48.0 Paroxysmal atrial fibrillation (principal)
CPT/HCPCS: 93312

== ENCOUNTER 2021-03-08 14:59 | Outpatient (CLI) | payer BC, SELFPAY | END 2021-03-08 15:25 | disposition home or self-care (01) | LOC: INF 15:00 | PROVIDERS: PCP Family Medicine; Visit Provider Family Medicine | DX: Z79.01 Long term (current) use of anticoagulants (principal) | CPT/HCPCS: 96372 ==

== ENCOUNTER 2021-06-17 16:21 | Outpatient (CLI) | payer BC, SELFPAY ==
[2021-06-17 16:25] VITALS: BMI 27.4
[2021-06-17 16:30] VITALS: BP 122/89; PULSE 86; RESP 18; TEMP 36.6; O2SAT 96
== END 2021-06-17 17:19 | disposition home or self-care (01) ==
LOC: INF 16:22
PROVIDERS: PCP Family Medicine; Visit Provider Physician Assistant
DX: R79.1 Abnormal coagulation profile (principal)
CPT/HCPCS: 85610; 96372

== ENCOUNTER 2021-07-12 15:18 | Outpatient (CLI) | payer BC, SELFPAY ==
[2021-07-12 15:25] VITALS: BMI 27.4
[2021-07-12 16:13] LABS: Prothrombin Time 84.9 seconds (10.1-12.5)
--- NOTE | 2021-07-12 16:29 | PC.NURSE ---
1612 Alisha Paredes called PANTERA Ramos at 1612 to report PT/INR 84.9/8.00. RN repeated and verified patient name, date of , and lab value. Result called to Dr. Lam and no new orders received/ proceed with Vitamin K 5mg SQ x1.
== END 2021-07-12 16:25 | disposition home or self-care (01) ==
LOC: INF 15:19
PROVIDERS: PCP Family Medicine; Visit Provider Family Medicine
DX: R79.1 Abnormal coagulation profile (principal)
CPT/HCPCS: 85610; 96372

== ENCOUNTER → 2022-04-15 16:25 | Outpatient (CLI) | payer BC, SELFPAY ==
--- NOTE | 2022-04-15 | MM_ITS ---
PROCEDURE INFORMATION: Exam: MG Bilateral Screening 3D Mammography Exam date and time: 04/15/2022 4:26 PM Age: 51 years old Clinical indication: Screening. No family history of breast cancer. History of bilateral benign excisional biopsies. TECHNIQUE: Imaging protocol: Bilateral Screening tomosynthesis and 2D mammography including computer-aided detection (CAD) when performed. COMPARISON: 1. MG DMSB DIG MAMM-SCREEN EZ 08/26/2015 4:12 PM 2. MG DMDBAV DIG MAMM-DX EZ ADD VIEWS 04/25/2013 4:59 PM 3. MG DMDXUR DIG MAMM-DX UNILATERAL-RT 07/29/2011 9:13 AM 4. MG DMSB DIGITAL MAMM-SCREEN BILATERAL 02/10/2011 9:45 AM FINDINGS: MAMMOGRAPHY: Breast composition: There are scattered areas of fibroglandular density. Mass: None. Architectural distortion: Less prominent architectural distortion in both upper outer aspect which correlates to excision a biopsy scars delineated on the history sheet from 08/26/2015. Calcifications: No suspicious calcifications. Asymmetric density: None. Skin thickening: None. Axillary adenopathy: None. IMPRESSION: No mammographic evidence of malignancy. Annual screening is recommended unless otherwise clinically indicated. ASSESSMENT: BI-RADS Category 2: Benign
== END ==
PROVIDERS: PCP Family Medicine; Visit Provider Family Medicine
DX: Z12.31 Encounter for screening mammogram for malignant neoplasm of breast (principal)
CPT/HCPCS: 77063; 77067

== ENCOUNTER → 2022-05-10 15:46 | Outpatient (POV) | payer BC, SELFPAY | PROVIDERS: Visit Provider Dermatology | DX: Z00.00 Encounter for general adult medical examination without abnormal findings (principal) ==

== ENCOUNTER 2023-08-21 15:20 | Emergency (ER) | payer BC, SELFPAY ==
[2023-08-21 15:20] VITALS: BP 153/100; PULSE 85; RESP 17; TEMP 36.8; O2SAT 98; BMI 24.7
--- NOTE | 2023-08-21 15:20 | PC.NURSE ---
Dr. Skelton at BS
--- NOTE | 2023-08-21 15:25 | PC.NURSE ---
pt fs upon arrival is 113
--- NOTE | 2023-08-21 15:26 | CT_ITS ---
FINAL REPORT CLINICAL HISTORY: back pain, numbness/tingling arms FINDINGS: Axial CT images of the thoracic spine were obtained without contrast. Sagittal and coronal reformatted images were also obtained. This study was performed with techniques to keep radiation doses as low as reasonably achievable (ALARA). Individualized dose reduction techniques using automated exposure control or adjustment of mA and/or kV according to the patient''s size were employed. There is no evidence of fracture. The vertebral alignment is normal. There is no evidence of significant canal stenosis. No paraspinous soft tissue abnormality is identified. IMPRESSION: No fracture or acute bony abnormality. No significant central canal stenosis. Consider MRI if clinical concern persists. Reviewed, Interpreted and Dictated by Cesar Merchant MD Transcribed by Deb Lauren Authenticated and [facility]
--- NOTE | 2023-08-21 15:26 | CT_ITS ---
FINAL REPORT CLINICAL HISTORY: back pain, numbness/tingling arms COMPARISON: None FINDINGS: CT NECK ANGIO, WITHOUT AND WITH CONTRAST TECHNIQUE: Thin section axial CT with IV contrast supplemented with 3D MIP reconstruction NASCET criteria and technique was utilized during interpretation. FINDINGS: Aortic arch: Arch shows no significant narrowing. Great vessel origins are widely patent. Right carotid: No significant stenosis is seen of the cervical common or internal carotid artery. Left carotid: No significant stenosis is seen of the cervical common or internal carotid artery. Minimal left calcified plaque is present which does not produce significant stenosis. Vertebrals: The vertebral arteries are codominant. No significant stenosis is present. IMPRESSION: No significant stenosis of the cervical carotid arteries This study was performed using automated techniques to achieve radiation exposure as low as reasonably possible. Reviewed, Interpreted and Dictated by Cesar Merchant MD Transcribed by Magdalena Miller Authenticated and [facility]
--- NOTE | 2023-08-21 15:26 | CT_ITS ---
FINAL REPORT TECHNIQUE: Axial images were obtained from skull base to the thoracic inlet by computed tomography. Coronal and sagittal reconstruction process performed. This study was performed with techniques to keep radiation doses as low as reasonably achievable (ALARA). Individualized dose reduction techniques using automated exposure control or adjustment of mA and/or kV according to the patient''s size were employed. CLINICAL HISTORY: back pain, numbness/tingling arms FINDINGS: There is no acute fracture or subluxation. There are postoperative changes of fusion at C5-6. There are bony hypertrophic changes at C3-4 and C4-5 resulting in canal stenosis, greatest at C4-5. There is mild bony neuroforaminal narrowing on the right at C5-6. Soft tissues are unremarkable. IMPRESSION: Hypertrophic changes resulting in canal stenosis and neuroforaminal narrowing at C4-5 and to a lesser extent at C3-4. Consider MRI if clinical concern persists. Reviewed, Interpreted and Dictated by Cesar Merchant MD Transcribed by Deb Lauren Authenticated and [facility]
--- NOTE | 2023-08-21 15:26 | CT_ITS ---
FINAL REPORT CLINICAL HISTORY: back pain, numbness/tingling arms (R>L), confusion COMPARISON: None FINDINGS: CTA HEAD TECHNIQUE: Thin section axial CT with contrast with 3D MIP reconstruction FINDINGS: No aneurysm is seen. Major intracranial vessels are patent without significant stenosis. . IMPRESSION: Unremarkable This study was performed using automated techniques to achieve radiation exposure as low as reasonably achievable Reviewed, Interpreted and Dictated by Cesar Merchant MD Transcribed by Magdalena Miller Authenticated and [facility]
--- NOTE | 2023-08-21 15:26 | CT_ITS ---
FINAL REPORT TECHNIQUE: Thin section axial CT with contrast with multiplanar reconstruction CLINICAL HISTORY: back pain, numbness/tingling arms FINDINGS: Pulmonary vessels enhance in normal fashion without evidence of embolism. Thoracic aorta shows no dissection or aneurysm. No pulmonary mass or infiltrate is present. There is no significant pleural effusion. There is no significant pericardial effusion. No mediastinal or hilar adenopathy is present. IMPRESSION: 1. No evidence of pulmonary embolism Reviewed, Interpreted and Dictated by Cesar Merchant MD Transcribed by Deb Lauren Authenticated and [facility]
--- NOTE | 2023-08-21 15:26 | CT_ITS ---
FINAL REPORT TECHNIQUE: Axial imaging of the head was obtained without contrast. This study was performed with techniques to keep radiation doses as low as reasonably achievable (ALARA). Individualized dose reduction techniques using automated exposure control or adjustment of mA and/or kV according to the patient's size were employed. CLINICAL HISTORY: back pain, numbness/tingling arms FINDINGS: No abnormal density is seen. Ventricles are normal. There is no hemorrhage. No mass effect is seen. Bone windows show no evidence of fracture. IMPRESSION: No acute findings Reviewed, Interpreted and Dictated by Cesar Merchant MD Transcribed by Deb Lauren Authenticated and [facility]
[2023-08-21 15:30] VITALS: BP 127/101; PULSE 82; O2SAT 96
--- NOTE | 2023-08-21 15:34 | ECG_ITS ---
APPROVED REPORT Exam: Resting ECG HR:80 bpm ECG Measurements Heart Rate 80 AXES FL 136 P 51 QRSd 96 QRS 19 QT 388 T 12 QTc 425 Conclusion SINUS RHYTHM Motion artifact No acute STEMI Electronically signed by : RICO SPENCE, 08/22/2023 00:24:12
[2023-08-21 15:35] LABS: Basophils # 0.1 K/mm3 (0-0.2); Basophils % 0.9 % (0.1-2.0); Eosinophils # 0.5 K/mm3 (0.0-0.4); Eosinophils % 5.7 % (0.1-12.0); Hematocrit 41.6 % (37.0-47.0); Hemoglobin 13.5 g/dL (12.2-16.2); Lymphocytes % 34.2 % (10-50); Mean Corpuscular HGB Conc 32.4 g/dL (31.8-35.4); Mean Corpuscular Hemoglobin 32.3 pg (27.0-31.2); Mean Corpuscular Volume 99.6 fl (81-99); Mean Platelet Volume 8.3 fl (7.4-10.4); Monocytes # 0.4 K/mm3 (0.1-1.0); Monocytes % 4.7 % (1.7-9.3); Neutrophils # 4.8 K/mm3 (1.8-7.8); Neutrophils % 54.5 % (37.0-80.0); Platelet Count 297 K/mm3 (142-424); Red Blood Count 4.18 M/mm3 (4.20-5.40); Red Cell Distribution Width 17.4 % (11.5-17.5); White Blood Count 8.8 K/mm3 (4.8-10.8)
[2023-08-21 15:37] LABS: Chloride 106 mmol/L (98-107); Sodium 139 mmol/L (136-145)
[2023-08-21 15:38] LABS: Potassium 4.2 mmoL/L (3.5-5.1)
[2023-08-21 15:40] LABS: Alanine Aminotransferase 35 U/L (12-78); Alkaline Phosphatase 96 U/L (38-126); Anion Gap 10.2 mEq/L (5-15); Aspartate Amino Transferase 36 U/L (14-36); Bilirubin,Total 0.4 mg/dl (0.2-1.3); Blood Urea Nitrogen 15 mg/dl (7-17); Carbon Dioxide 27 mmol/L (22.0-30.0); Estimated Glomerular Filt Rate 65 ml/min (>60); GFR (African American) 79 ML/MIN (>60); Lipase 150 U/L (23-300)
[2023-08-21 15:41] LABS: Albumin Level 4.4 g/dl (3.5-5.0); Albumin/Globulin Ratio 1.3 (1.1-1.8); Calcium 9.3 mg/dl (8.4-10.2); Globulin 3.3 g/dL (1.3-3.2); Glucose 100 mg/dl (74-100); Total Protein,Serum 7.7 g/dl (6.3-8.2)
[2023-08-21 15:44] LABS: Activated Partial Thrombo Time 28.2 seconds (22.8-30.6); INR 1.03 (0.9-1.1); Prothrombin Time 11.1 seconds (10.1-12.5)
[2023-08-21 15:48] LABS: Microscopic, Urine URINE MICROSCOPIC (MICROSCOPIC)
--- NOTE | 2023-08-21 15:48 | HMH.EDGENADL ---
Discharge Plan Disposition Patient Disposition: Home, Self-Care Condition: Good Prescriptions Prescriptions: New prednisone 50 mg tablet 50 mg PO DAILY 5 Days Qty: 5 0RF No Action budesonide-formoterol [Symbicort] 160-4.5 mcg/actuation HFA aerosol inhaler 2 inh INHALATION BID ropinirole [Requip] 1 mg tablet 2 mg PO HS Rx Instructions: 1 / rosuvastatin 20 mg tablet 20 mg PO DAILY Patient Comments: TAKE 1 TABLET BY MOUTH EVERY DAY FOR 30 DAYS alprazolam 1 mg tablet 1 mg PO TID PRN (Reason: anxiety) Qty: 20 0RF Xarelto 20 mg tablet See Rx Instructions .ROUTE .COMPLEX Qty: 30 11RF Dose Instruction: TAKE 1 TABLET BY MOUTH DAILY-MUST ADMINISTER WITH EVENING MEAL Rx Instructions: TAKE 1 TABLET BY MOUTH DAILY-MUST ADMINISTER WITH EVENING MEAL fluoxetine 20 mg capsule See Rx Instructions .ROUTE .COMPLEX Qty: 90 3RF Dose Instruction: TAKE 1 CAPSULE BY MOUTH EVERY DAY Rx Instructions: TAKE 1 CAPSULE BY MOUTH EVERY DAY bisoprolol-hydrochlorothiazide 10-6.25 mg tablet See Rx Instructions .ROUTE .COMPLEX Qty: 90 4RF Dose Instruction: TAKE 1 TABLET BY MOUTH EVERY DAY Rx Instructions: TAKE 1 TABLET BY MOUTH EVERY DAY quetiapine 100 MG tablet 100 mg PO HS montelukast 10 MG tablet 10 mg PO DAILY duloxetine 30 MG capsule,delayed release(DR/EC) 30 mg PO BID epinephrine 0.3 MG/0.3 ML auto-injector 0.3 ml IM NEEDED PRN (Reason: Allergic Reaction) Referrals Follow up/Referrals: Cesar Lam MD [Primary Care Provider] - See instructions Activity Restrictions/Add. Instructions Additional Instructions/Restrictions: You were evaluated in the emergency department today. At this time, we feel that symptoms are likely related to nerve compression from your spine. Given that you were initially concern for strokelike symptoms, recommend calling your primary care provider in the morning and letting him know of your symptoms so that you can follow-up very closely. I feel you also would benefit from close follow-up with cardiology given this. No evidence of stroke on CT scans at this time. Since you have significant narrowing of your spine that is compressing on nerves, I am prescribing a trial of steroids to see if this helps with your symptoms. I recommend close follow-up with spine, which your primary care provider can refer you to. Return to the emergency department for new or worsening symptoms. 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 Patient reports that on Monday, they were driving home when she became confused. She states that she felt that she was not herself. She noted that she felt like both her arms were tingling and heavy, especially the right. The level went up to mid forearm, but the right went all the way up to her shoulder. She also noted she was having some numbness and tingling in the third, fourth, and fifth toes on the left side. She notes that she had to stop driving because she felt like her arms were too heavy and she was not even sure how to get to where she was going. Symptoms have been gradually improving since then, but she still having numbness and tingling in her left hand and right arm. Right side seems to worsen the left. She also states that she feels like her lip is heavy in fat, but she has not noted any facial droop when she looks in the mirror. No headaches, visual disturbances, gait abnormality, speech difficulty, chest pain, abdominal pain, or other concerns, but she does note that she was having some nausea, vomiting, and diarrhea with this. She also notes that she is having some upper back/neck pain. She states she thought maybe she had a pinched nerve because she has a history of neck problems in the past. She came in today because her finally convinced her to to make sure that she was not having a stroke. Related Data Home Medications Medication Instructions Recorded Confirmed budesonide-formoterol HFA 160 2 inh inhalation BID COPD 05/19/17 08/31/22 mcg-4.5 mcg/actuation aerosol inhaler (Symbicort) quetiapine 100 mg tablet 100 mg PO HS sleep 01/30/21 08/31/22 duloxetine 30 mg capsule,delayed 30 mg PO BID Depression 01/31/21 08/31/22 release epinephrine 0.3 mg/0.3 mL 0.3 ml IM NEEDED PRN Allergic 01/31/21 08/31/22 injection, auto-injector Reaction montelukast 10 mg tablet 10 mg PO DAILY Asthma 01/31/21 08/31/22 rosuvastatin 20 mg tablet 20 mg PO DAILY 07/29/21 08/31/22 ropinirole 1 mg tablet (Requip) 2 mg PO HS restless leg 08/31/22 08/31/22 Previous Rx's Medication Instructions Recorded alprazolam 1 mg tablet 1 mg PO TID PRN anxiety #20 tabs 06/25/19 rivaroxaban 20 mg tablet (Xarelto) See Rx Instructions .Route 08/04/22 .COMPLEX #30 tabs fluoxetine 20 mg capsule See Rx Instructions .Route 12/19/22 .COMPLEX #90 caps bisoprolol 10 See Rx Instructions .Route 03/20/23 mg-hydrochlorothiazide 6.25 mg .COMPLEX #90 tabs tablet prednisone 50 mg tablet 50 mg PO DAILY 5 days #5 tabs 08/21/23 Allergies Allergy/AdvReac Type Severity Reaction Status Date / Time acetaminophen [From Percocet] Allergy Mild Verified 08/31/22 14:47 ibuprofen [From Advil] Allergy Mild Verified 08/31/22 14:47 oxycodone [From Percocet] Allergy Mild Verified 08/31/22 14:47 codeine [CODEINE] Allergy Unknown Verified 08/31/22 14:47 morphine Allergy Verified 08/31/22 14:47 PFSH [facility] Disclaimer: The information contained in this section may have been updated after the patient was seen, as this information can be updated by other users. Medical History Vaginitis Social History Smoking Status: Unknown if ever smoked alcohol intake: never substance use type: denies use current occupational status: employed Travel in the last 8 weeks: Inside the [place] household members: spouse housing: house current occupational exposures/hazards: No ROS Obtained: Yes All systems reviewed & no additional complaints except as documented Physical Exam General General appearance: alert and in no apparent distress Head Head exam: atraumatic and normocephalic Eye Eye exam: Present normal appearance, PERRL and EOMI ENT ENT exam: Present normal exam, normal oropharynx, mucous membranes moist and normal external ear exam Neck Neck exam: Present normal inspection, full ROM and trachea midline; Absent tenderness Chest Chest inspection: Present normal inspection and symmetric chest wall rise; Absent tenderness Respiratory Respiratory exam: Present normal lung sounds bilaterally; Absent respiratory distress, wheezes, stridor or accessory muscle use Cardiovascular Cardiovascular exam: Present regular rate and normal rhythm Abdominal Exam Abdominal exam: Present soft; Absent distention, tenderness or guarding Extremities Exam Extremities exam: Present normal inspection, full ROM and normal capillary refill; Absent tenderness or edema Back Exam Back exam: Present normal inspection and full ROM; Absent tenderness Neurological Exam Neurological exam: Present alert, oriented X3, CN II-XII intact, normal gait and motor sensory deficit Expanded Neurological Exam Patient oriented to: Present person, place and time Speech: Present fluid speech Cranial nerves: Normal: EOM function (II, III, IV, ), facial sensation (V), facial palsy (VII), spinal accessory function (XI) and tongue deviation (XII) Cerebellar function: Normal: finger to nose and heel to gallego Cerebellar function: normal gait Motor strength - LUE: 5/5 Motor strength - RUE: 5/5 Motor strength - LLE: 5/5 Motor strength - RLE: 5/5 Upper motor neuron exam: Normal: estephania neglect and pronator drift Sensory exam upper extremity: Abnormal Right: light touch Sensory exam lower extremity: Abnormal Right: light touch Coma scale eye opening: Spontaneous Coma scale motor response: Obeys commands Coma scale verbal response: Oriented Coma scale total: 15 Comment: NIHSS 1 for subjective difference in sensation between the entire RUE/RLE and LUE/LLE. Entire RUE/RLE are reduced compared to right per patient. Psychiatric Psychiatric exam: Present normal affect and normal mood Skin Skin exam: Present warm and dry Medical Decision Making Medical Records Medical records reviewed: Yes I reviewed the patient's medical records. Marcio Inquiry Pt receiving controlled substance: No Vital Signs: 08/21/23 15:20 08/21/23 15:30 08/21/23 16:30 Temperature 98.2 F Temperature Source Oral Pulse Rate 82 73 Pulse Rate [Right] 85 Respiratory Rate 17 Blood Pressure 127/101 H 137/94 H Blood Pressure [Right Arm] 153/100 H Blood Pressure Mean 115 Blood Pressure Mean [Right Arm] 117 Blood Pressure Source [Right Arm] Automatic Cuff 02 Sat by Pulse Oximetry 98 96 98 Oxygen Delivery Method Room Air 08/21/23 17:00 08/21/23 17:30 08/21/23 18:24 Temperature 98.0 F Temperature Source Pulse Rate 74 77 71 Pulse Rate [Right] Respiratory Rate 20 Blood Pressure 139/95 H 147/93 H 128/98 H Blood Pressure [Right Arm] Blood Pressure Mean Blood Pressure Mean [Right Arm] Blood Pressure Source [Right Arm] 02 Sat by Pulse Oximetry 97 97 Oxygen Delivery Method Room Air Room Air Room Air Lab Data Lab results reviewed: Yes I reviewed the patient's lab results. Lab Results 08/21/23 15:20: WBC 8.8, RBC 4.18 L, Hgb 13.5, Hct 41.6, MCV 99.6 H, MCH 32.3 H, MCHC 32.4, RDW 17.4, Plt Count 297, MPV 8.3, Neut % (Auto) 54.5, Lymph % (Auto) 34.2, Hill % (Auto) 4.7, Eos % (Auto) 5.7, Baso % (Auto) 0.9, Neut # (Auto) 4.8, Lymph # (Auto) 3.0, Hill # (Auto) 0.4, Eos # (Auto) 0.5 H, Baso # (Auto) 0.1, PT 11.1, INR 1.03, APTT 28.2, Sodium 139, Potassium 4.2, Chloride 106, Carbon Dioxide 27, Anion Gap 10.2, BUN 15, Creatinine 0.90, Estimated GFR 65, Est GFR ( Amer) 79, Glucose 100, Calcium 9.3, Magnesium 2.0, Total Bilirubin 0.4, AST 36, ALT 35, Alkaline Phosphatase 96, Troponin I < 0.01, Total Protein 7.7, Albumin 4.4, Globulin 3.3 H, Albumin/Globulin Ratio 1.3, Lipase 150, Vitamin B12 463, TSH 0.87, Thyroxine (T4) 9.2 08/21/23 15:36: Urine Color Yellow, Urine Appearance Clear, Urine pH 6.0, Ur Specific [place] >= 1.030, Urine Protein Negative, Urine Glucose (UA) Negative, Urine Ketones Negative, Urine Blood Negative, Urine Nitrate Negative, Urine Bilirubin Negative, Urine Urobilinogen 0.2, Ur Leukocyte Esterase Trace, Urine RBC None, Urine WBC Occasional, Ur Squamous Epith Cells Occasional, Urine Bacteria Trace, Urine Mucus Trace 08/21/23 15:20 08/21/23 15:20 Orders (Tests/Meds): ED MEDICATIONS Discontinued Medications Generic Name Dose Route Start Last Admin Trade Name Freq PRN Reason Stop Dose Admin Iopamidol 170 ml 08/21/23 16:03 08/21/23 16:13 Iopamidol-370 (76%);100ml Bottle IV 08/21/23 16:04 170 ml ONCE ONE Administration Sodium Chloride 50 ml 08/21/23 16:03 08/21/23 16:12 0.9 % Sodium Chloride 50 Ml Vial IV 08/21/23 16:04 50 ml ONCE ONE Administration Sodium Chloride 10 ml 08/21/23 16:03 08/21/23 16:13 Sodium Chloride 0.9% 10ml Syr (Rad Only) IV 08/21/23 16:04 10 ml ONCE ONE Administration ORDERS Category Date Time Status CT angio chest - dissection Stat Cat Scan 08/21/23 15:[address] angio head Stat Cat Scan 08/21/23 15:[address] angio neck Stat Cat Scan 08/21/23 15:[address] cervical spine wo con Stat Cat Scan 08/21/23 15:[address] head/brain wo con Stat Cat Scan 08/21/23 15:[address] thoracic spine wo con Stat Cat Scan 08/21/23 15:26 Completed Activated Partial Thrombo Time Stat Lab 08/21/23 15:20 Completed Complete Blood Count Auto Diff Stat Lab 08/21/23 15:20 Completed Comprehensive Metabolic Panel Stat Lab 08/21/23 15:20 Completed Lipase Stat Lab 08/21/23 15:20 Completed Magnesium Stat Lab 08/21/23 15:20 Completed Prothrombin Time INR Stat Lab 08/21/23 15:20 Completed T4 (Thyroxine) Stat Lab 08/21/23 15:20 Completed Thyroid Stimulating Hormone Stat Lab 08/21/23 15:20 Completed Troponin I Stat Lab 08/21/23 15:20 Completed UA [Urinalysis and Microscopic] Stat Lab 08/21/23 15:36 Completed Vitamin B12 Stat Lab 08/21/23 15:20 Completed ECG Data Tracing #1: I reviewed this ECG and interpreted as documented below: Normal sinus rhythm with a ventricular rate of [address] changes concerning for ischemia. Normal axis and intervals. Some motion artifact noted. ECG initial impression date: 08/21/23 ECG initial impression time: 15:35 Medical Decision Narrative: In summary, this patient is a 52-year-old female presenting to the Emergency Department for evaluation of numbness and tingling of the bilateral upper extremities as well as left toes. Differential diagnoses considered include but are not limited to peripheral neuropathy, CVA, intracranial hemorrhage, intracranial mass, electrolyte derangements, vitamin deficiency, spinal compression. Ruling out the most morbid conditions drove assessment. It should be noted patient's history includes hyperlipidemia which may or may not be at goal therapy. This complicates all aspects of care by increasing patient's risk for morbidity. I reviewed patient's past medical records and noted previous cardiology evaluations for peripheral vascular disease. On exam, the patient is resting comfortably in bed in no acute distress. She is alert and oriented with normal vital signs and cardiac telemetry. NIH stroke scale is 1 for subjective decrease in sensation on the right upper extremity and right lower extremity, but otherwise she is neurologically intact. She presents outside of any sort of window for tPA or thrombectomy given that symptoms started over 48 hours ago. Workup included lab evaluation to evaluate for metabolic derangements as a cause as well as cardiac workup. CT head, CT angiogram head, neck, chest, and CT C/T-spine were also obtained to evaluate for cause of symptoms. EKG obtained is reassuring. I independently interpreted CT scans prior to the radiologist read and noted no obvious head bleed. Please see their read for final interpretation. Labs were obtained that demonstrated no acutely concerning abnormalities with negative troponin. According to radiology read, patient does have cervical stenosis with foraminal stenosis and potential nerve compression. No evidence on physical exam for spinal cord compression. I feel cervical radiculopathy is likely the cause of her symptoms given that she has low risk for stroke medically and no evidence of stroke on CT. Either way, she is well-outside window for intervention. On reassessment, patient is resting comfortably. Vitals remain reassuring. She agrees that she feels this is likely related to her neck, as she has had chronic issues with her neck in the past. She notes that it may have been aggravated by driving. after shared decision-making with the patient, will trial prednisone to see if this alleviates her symptoms. She was given instructions for very close follow-up outpatient with her primary care provider as well as with spine. I gave her very strict return precautions as well. Patient was discharged after all questions were answered. Critical Care Critical Care Time Critical Care Time: No
[2023-08-21 15:50] LABS: Appearance,Urine CLEAR (Clear); Bilirubin,Urine Negative (Negative); Blood, Urine Negative (Negative); Color,Urine YELLOW (Yellow); Glucose,Urine (UA) Negative (Negative); Ketones,Urine Negative (Negative); Leukocyte Esterase,Urine TRACE (Negative); Nitrate,Urine Negative (Negative); Protein,Urine Negative (Negative); Specific Gravity, Urine >= 1.030 (1.005-1.030); Urobilinogen,Urine 0.2 EU/dl (0.2)
--- NOTE | 2023-08-21 15:54 | PC.NURSE ---
PT gone to RAD via wheelchair
[2023-08-21 15:57] LABS: Troponin I < 0.01 ng/ml (0.00-0.034)
[2023-08-21 15:58] LABS: T4 (Thyroxine) 9.2 ug/dl (5.53-11.0)
[2023-08-21 16:02] LABS: Bacteria,Urine Trace /lpf; Mucus,Urine Trace /lpf; Squamous Epithelial Cell,Urine Occasional #/hpf (0-5); WBC,Urine Occasional #/hpf (0-3)
[2023-08-21 16:11] LABS: Thyroid Stimulating Hormone 0.87 uIU/mL (0.465-4.68)
[2023-08-21] MEDS: 0.9 % SODIUM CHLORIDE 50 ML VIAL IV (16:12)
[2023-08-21] MEDS: SODIUM CHLORIDE 0.9% 10ML SYR (RAD ONLY) 10 ML IV (16:13)
[2023-08-21] MEDS: IOPAMIDOL-370 (76%);100ML BOTTLE 170 ML IV (16:13)
[2023-08-21 16:30] VITALS: BP 137/94; PULSE 73; O2SAT 98
[2023-08-21 17:00] VITALS: BP 139/95; PULSE 74; O2SAT 97
[2023-08-21 17:30] VITALS: BP 147/93; PULSE 77; O2SAT 97
[2023-08-21 17:33] LABS: Vitamin B12 463 pg/mL (239-931)
[2023-08-21 18:24] VITALS: BP 128/98; PULSE 71; RESP 20; TEMP 36.7; O2SAT 99
== END 2023-08-21 18:25 | disposition home or self-care (01) ==
PROVIDERS: Emergency Provider Emergency Medicine; PCP Family Medicine
DX: M48.02 Spinal stenosis, cervical region (principal); M54.12 Radiculopathy, cervical region; R20.2 Paresthesia of skin
CPT/HCPCS: 70450; 70496; 70498; 71275; 72125; 72128; 80053; 81001; 82607; 83690; 83735; 84436; 84443; 84484; 85025; 85610; 85730; 93005; 99285; Q9967

== ENCOUNTER 2024-03-21 14:41 | Emergency (ER) | payer OTHER, SELFPAY ==
--- NOTE | 2024-03-21 14:46 | ECG_ITS ---
APPROVED REPORT Exam: Resting ECG HR:78 bpm ECG Measurements Heart Rate 78 AXES VT 144 P 60 QRSd 90 QRS 35 QT 388 T 13 QTc 422 Conclusion SINUS RHYTHM NORMAL ECG Electronically signed by : GENOVEVA VASQUEZ, 03/24/2024 06:50:10
--- NOTE | 2024-03-21 14:50 | HMH.EDCP ---
Discharge Plan Disposition Patient Disposition: Home, Self-Care Condition: Good Prescriptions Prescriptions: No Action budesonide-formoterol [Symbicort] 160-4.5 mcg/actuation HFA aerosol inhaler 2 inh INHALATION BID ropinirole [Requip] 1 mg tablet 2 mg PO HS Rx Instructions: 1 02/28 rosuvastatin 20 mg tablet 20 mg PO DAILY Patient Comments: TAKE 1 TABLET BY MOUTH EVERY DAY FOR 30 DAYS venlafaxine 75 mg tablet 75 mg PO DAILY Patient Comments: TAKE 1 TABLET BY MOUTH EVERY DAY WITH FOOD FOR 30 DAYS alprazolam 1 mg tablet 1 mg PO TID PRN (Reason: anxiety) Qty: 20 0RF bisoprolol-hydrochlorothiazide 10-6.25 mg tablet See Rx Instructions .ROUTE .COMPLEX Qty: 90 4RF Dose Instruction: TAKE 1 TABLET BY MOUTH EVERY DAY Rx Instructions: TAKE 1 TABLET BY MOUTH EVERY DAY Xarelto 20 mg tablet See Rx Instructions .ROUTE .COMPLEX Qty: 90 3RF Dose Instruction: TAKE 1 TABLET BY MOUTH DAILY-MUST ADMINISTER WITH EVENING MEAL Rx Instructions: TAKE 1 TABLET BY MOUTH DAILY-MUST ADMINISTER WITH EVENING MEAL quetiapine 100 MG tablet 100 mg PO HS montelukast 10 MG tablet 10 mg PO DAILY epinephrine 0.3 MG/0.3 ML auto-injector 0.3 ml IM NEEDED PRN (Reason: Allergic Reaction) prednisone 50 mg tablet 50 mg PO DAILY 5 Days Qty: 5 0RF Referrals Follow up/Referrals: Nomi Cornell II, MD [Staff Physician] - See instructions Cesar Lam MD [Primary Care Provider] - See instructions Sung Motley MD [Staff Physician] - See instructions Activity Restrictions/Add. Instructions Additional Instructions/Restrictions: As we discussed I have referred you to both cardiology and gastroenterology for further workup. Please be sure to tell Dr. Walter about your cervical surgery when you see them. Follow-up with your PCP for any recurrent new or worsening symptoms or return to the ER as needed. Clinical Impressions Clinical Impression: Chest pain Qualifiers: Chest pain type: unspecified Qualified Code(s): R07.9 - Chest pain, unspecified Print Language Print Language: Khmer Discharge ED Provider: Swapnil Mcghee <EDU Metzger - Last Filed: 03/21/24 22:16> General Chief Complaint: Chest Pain Stated Complaint: CP Time Seen by Provider: 03/21/24 14:50 History of Present Illness HPI narrative: Patient presents at the behest of her PCP for evaluation of chest pain. Patient states that she had an episode of chest pain last evening that lasted about an hour. She stated it happened fairly after a meal and radiated up to her her left jaw and right arm. She has not had any chest pain since. Of note patient recent had anterior approach cervical fusion and has had episodes of this periodically since that 1. Patient denies any specific evidence of choking. Currently she denies chest pain fever chills hemoptysis hematochezia melena nausea vomiting diarrhea Related Data Home Medications ?Medication ?Instructions ?Recorded ?Confirmed budesonide-formoterol HFA 160 2 inh inhalation BID COPD 05/19/17 10/10/23 mcg-4.5 mcg/actuation aerosol inhaler (Symbicort) quetiapine 100 mg tablet 100 mg PO HS sleep 01/30/21 10/10/23 epinephrine 0.3 mg/0.3 mL 0.3 ml IM NEEDED PRN Allergic 01/31/21 10/10/23 injection, auto-injector Reaction montelukast 10 mg tablet 10 mg PO DAILY Asthma 01/31/21 10/10/23 rosuvastatin 20 mg tablet 20 mg PO DAILY 07/29/21 10/10/23 ropinirole 1 mg tablet (Requip) 2 mg PO HS restless leg 08/31/22 10/10/23 venlafaxine 75 mg tablet 75 mg PO DAILY 10/10/23 10/10/23 Previous Rx's ?Medication ?Instructions ?Recorded alprazolam 1 mg tablet 1 mg PO TID PRN anxiety #20 tabs 06/25/19 bisoprolol 10 See Rx Instructions .Route 03/20/23 mg-hydrochlorothiazide 6.25 mg .COMPLEX #90 tabs tablet prednisone 50 mg tablet 50 mg PO DAILY 5 days #5 tabs 08/21/23 rivaroxaban 20 mg tablet (Xarelto) See Rx Instructions .Route 09/25/23 .COMPLEX #90 tabs Allergies Allergy/AdvReac Type Severity Reaction Status Date / Time acetaminophen (From Percocet) Allergy Mild Verified 10/10/23 14:28 ibuprofen (From Advil) Allergy Mild Verified 10/10/23 14:28 oxycodone (From Percocet) Allergy Mild Verified 10/10/23 14:28 codeine (CODEINE) Allergy Unknown Verified 10/10/23 14:28 morphine Allergy Verified 10/10/23 14:28 PFSH <EDU Metzger - Last Filed: 03/21/24 22:16> [facility] Disclaimer: The information contained in this section may have been updated after the patient was seen, as this information can be updated by other users. Medical History (Updated 03/21/24 @ 16:21 by EDU Metzger) Preoperative testing Vaginitis Social History Smoking Status: Never smoker alcohol intake: never substance use type: denies use current occupational status: employed Travel in the last 8 weeks: Inside the [place] household members: spouse housing: house current occupational exposures/hazards: No Have you lived/traveled outside US in past 30 days?: No Contact w/someone who lives/traveled outside US past 30 days?: No Exposure to someone with infectious disease in past 14 days?: No Do you have a fever (greater than 100.4 F or 38 C)?: No Have you tested positive for COVID-19: No Exposed to someone with COVID-19 in past 14 days?: No Do you have a sore throat?: No Do you have a cough?: No Do you have any weakness?: No Do you have any diarrhea?: No Are you experiencing any unusual bleeding?: No Do you have any muscle aches/pain?: No Do you have any abdominal pain?: No Are you experiencing loss of taste or smell?: No Other Medical History Have you received the Flu Vaccine for this season: No Have you received the Pneumonia Vaccine: No <EDU Metzger - Last Filed: 03/21/24 22:16> ROS Obtained: Yes Systems reviewed as appropriate & no additional complaints except as documented Physical Exam <EDU Metzger - Last Filed: 03/21/24 22:16> General General appearance: alert Respiratory Respiratory exam: Present normal lung sounds bilaterally Cardiovascular Cardiovascular exam: Present regular rate Neurological Exam Neurological exam: Present alert and oriented X3 HEART Score <EDU Metzger - Last Filed: 03/21/24 22:16> HEART Score HEART Score assessment performed?: Yes History (anamnesis): Slightly suspicious ECG: Normal Age: 45-65 years Risk factors: 1-2 risk factors Troponin: </= normal limit HEART Score: 2 <Swapnil Mcghee MD - Last Filed: 03/22/24 19:33> HEART Score HEART Score: 2 Critical Care <EDU Metzger - Last Filed: 03/21/24 22:16> Critical Care Time Critical Care Time: No Medical Decision Making <EDU Metzger - Last Filed: 03/21/24 22:16> Medical Records Medical records reviewed: Yes I reviewed the patient's medical records. Marcio Inquiry Pt receiving controlled substance: No Vital Signs Vital Signs: 03/21/24 14:57 03/21/24 15:30 03/21/24 16:42 Temperature 98.4 F 98.4 F Temperature Source Oral Pulse Rate 79 80 Pulse Rate [Left] 83 Respiratory Rate 16 18 Blood Pressure 131/107 H 152/95 H Blood Pressure [Right Arm] 156/109 H Blood Pressure Mean [Right Arm] 124 Blood Pressure Source [Right Arm] Automatic Cuff Blood Pressure Position [Right Arm] Sitting 02 Sat by Pulse Oximetry 96 98 Oxygen Delivery Method Room Air Room Air Room Air Lab Data Lab results reviewed: Yes I reviewed the patient's lab results. Labs: Lab Results 03/21/24 14:52: WBC 9.2, RBC 5.02, Hgb 14.8, Hct 45.6, MCV 90.8, MCH 29.5, MCHC 32.5, RDW 16.2, Plt Count 362, MPV 8.7, Neut % (Auto) 50.1, Lymph % (Auto) 40.9, [place] % (Auto) 6.6, Eos % (Auto) 0.4, Baso % (Auto) 0.9, Neut # (Auto) 4.6, Lymph # (Auto) 3.8, Sabine # (Auto) 0.6, Eos # (Auto) 0.0, Baso # (Auto) 0.1, D-Dimer 0.33, Sodium 139, Potassium 3.6, Chloride 98, Carbon Dioxide 30, Anion Gap 14.6, BUN 11, Creatinine 0.90, Estimated Creat Clear 80, Estimated GFR 65, Est GFR ( Amer) 79, Glucose 101 H, Calcium 9.5, Total Bilirubin 0.3, AST 30, ALT 23, Alkaline Phosphatase 158 H, Troponin I < 0.01, NT-Pro-B Natriuret Pep < 20.0, Total Protein 7.8, Albumin 4.7, Globulin 3.1, Albumin/Globulin Ratio 1.5, HCV Ab JUANITA w/Rflx PCR Qn Negative, HIV Ag/Ab Combo Qual Negative 03/21/24 14:52 03/21/24 14:52 Response Orders (Tests/Meds): ED MEDICATIONS Discontinued Medications Generic Name Dose Route Start Last Admin Trade Name Freq PRN Reason Stop Dose Admin Belladonna Alkaloids 60 ml 03/21/24 15:27 03/21/24 15:47 Belladonna Alkaloids 60 Ml Ml PO 03/21/24 15:28 60 ml ONCE ONE Administration ORDERS Category Date Time Status XR chest 2V Stat Exams 03/21/24 15:04 Completed Complete Blood Count Auto Diff Stat Lab 03/21/24 14:52 Completed Comprehensive Metabolic Panel Stat Lab 03/21/24 14:52 Completed D-Dimer Stat Lab 03/21/24 14:52 Completed HIV Combo Stat Lab 03/21/24 14:52 Completed Hepatitis C Ab Qual. W/ RFX Stat Lab 03/21/24 14:52 Completed NT Pro Brain Natriuretic Pep. Stat Lab 03/21/24 14:52 Completed Troponin I Stat Lab 03/21/24 14:52 Completed MDM Narrative Medical Decision Narrative: In summary patient is a 53-year-old female who presents to the emergency department for evaluation of chest pain. Patient is initially slightly hypertensive at 156/109 breathing 16 times a minute with a pulse of 83 normal sinus rhythm on bedside monitor satting at 96% room air upon arrival, afebrile at 98.4. Physical exam is unremarkable nonfocal including normal breath sounds without adventitious sounds normal heart sounds no reproducible chest pain currently and currently 0 out of 10 chest pain no abdominal tenderness no epigastric tenderness. [place] Coma Score 15. Patient awake alert and oriented person place and circumstance.. Differential diagnosis includes angina versus ACS versus pneumonia versus gastritis versus esophagitis versus pancreatitis etc. Initial workup will be conducted with hematologic labs plain film chest x-ray. Initial interventions include Toradol Tylenol GI cocktail. Initial workup reviewed by me showed her hematologic labs are nonactionable including a negative troponin and given that this is more than 8 hours since her episode only a single 1 will be done. My informed interpretation of her plain film chest x-ray shows no acute processes.. Upon repeat evaluation had not no response to initial intervention however she has had no chest pain as well. Given this patient is appropriate for discharge referral to cardiology and gastroenterology for further workup and care and strict return precautions. <Swapnil Mcghee MD - Last Filed: 03/22/24 19:33> Vital Signs Vital Signs: 03/21/24 14:57 03/21/24 15:30 03/21/24 16:42 Temperature 98.4 F 98.4 F Temperature Source Oral Pulse Rate 79 80 Pulse Rate [Left] 83 Respiratory Rate 16 18 Blood Pressure 131/107 H 152/95 H Blood Pressure [Right Arm] 156/109 H Blood Pressure Mean [Right Arm] 124 Blood Pressure Source [Right Arm] Automatic Cuff Blood Pressure Position [Right Arm] Sitting 02 Sat by Pulse Oximetry 96 98 Oxygen Delivery Method Room Air Room Air Room Air Lab Data Labs: Lab Results 03/21/24 14:52: WBC 9.2, RBC 5.02, Hgb 14.8, Hct 45.6, MCV 90.8, MCH 29.5, MCHC 32.5, RDW 16.2, Plt Count 362, MPV 8.7, Neut % (Auto) 50.1, Lymph % (Auto) 40.9, Sabine % (Auto) 6.6, Eos % (Auto) 0.4, Baso % (Auto) 0.9, Neut # (Auto) 4.6, Lymph # (Auto) 3.8, Sabine # (Auto) 0.6, Eos # (Auto) 0.0, Baso # (Auto) 0.1, D-Dimer 0.33, Sodium 139, Potassium 3.6, Chloride 98, Carbon Dioxide 30, Anion Gap 14.6, BUN 11, Creatinine 0.90, Estimated Creat Clear 80, Estimated GFR 65, Est GFR ( Amer) 79, Glucose 101 H, Calcium 9.5, Total Bilirubin 0.3, AST 30, ALT 23, Alkaline Phosphatase 158 H, Troponin I < 0.01, NT-Pro-B Natriuret Pep < 20.0, Total Protein 7.8, Albumin 4.7, Globulin 3.1, Albumin/Globulin Ratio 1.5, HCV Ab UJANITA w/Rflx PCR Qn Negative, HIV Ag/Ab Combo Qual Negative Response Orders (Tests/Meds): ED MEDICATIONS Discontinued Medications Generic Name Dose Route Start Last Admin Trade Name Freq PRN Reason Stop Dose Admin Belladonna Alkaloids 60 ml 03/21/24 15:27 03/21/24 15:47 Belladonna Alkaloids 60 Ml Ml PO 03/21/24 15:28 60 ml ONCE ONE Administration ORDERS Category Date Time Status XR chest 2V Stat Exams 03/21/24 15:04 Completed Complete Blood Count Auto Diff Stat Lab 03/21/24 14:52 Completed Comprehensive Metabolic Panel Stat Lab 03/21/24 14:52 Completed D-Dimer Stat Lab 03/21/24 14:52 Completed HIV Combo Stat Lab 03/21/24 14:52 Completed Hepatitis C Ab Qual. W/ RFX Stat Lab 03/21/24 14:52 Completed NT Pro Brain Natriuretic Pep. Stat Lab 03/21/24 14:52 Completed Troponin I Stat Lab 03/21/24 14:52 Completed MDM Narrative Medical Decision Narrative: In summary patient is a 53-year-old female who presents to the emergency department for evaluation of chest pain. Patient is initially slightly hypertensive at 156/109 breathing 16 times a minute with a pulse of 83 normal sinus rhythm on bedside monitor satting at 96% room air upon arrival, afebrile at 98.4. Physical exam is unremarkable nonfocal including normal breath sounds without adventitious sounds normal heart sounds no reproducible chest pain currently and currently 0 out of 10 chest pain no abdominal tenderness no epigastric tenderness. [place] Coma Score 15. Patient awake alert and oriented person place and circumstance.. Differential diagnosis includes angina versus ACS versus pneumonia versus gastritis versus esophagitis versus pancreatitis etc. Initial workup will be conducted with hematologic labs plain film chest x-ray. Initial interventions include Toradol Tylenol GI cocktail. Initial workup reviewed by me showed her hematologic labs are nonactionable including a negative troponin and given that this is more than 8 hours since her episode only a single 1 will be done. My informed interpretation of her plain film chest x-ray shows no acute processes.. Upon repeat evaluation had not no response to initial intervention however she has had no chest pain as well. Given this patient is appropriate for discharge referral to cardiology and gastroenterology for further workup and care and strict return precautions. I was consulted by the JUJU, and we discussed the complexity of the problems being addressed.I approved the treatment and management plan for this patient?s care in the Emergency Department, thus performing a substantive portion of the medical decision making.Signed, MD DEANGELO FordA
[2024-03-21 14:57] VITALS: BP 156/109; PULSE 83; RESP 16; TEMP 36.9; O2SAT 96; BMI 26.4
--- NOTE | 2024-03-21 15:04 | XR_ITS ---
PROCEDURE INFORMATION: Exam: XR Chest Exam date and time: 03/21/2024 4:02 PM Age: 53 years old Clinical indication: Pain; Chest pressure; Additional info: Productive cough; Chest pain TECHNIQUE: Imaging protocol: Radiologic exam of the chest. Views: 2 views. COMPARISON: No relevant prior studies available. FINDINGS: Tubes, catheters and devices: There is a loop recorder implanted over the left chest. Lungs: No evidence of acute pulmonary disease or infiltrates Pleural spaces: No large effusion or pneumothorax. Heart/Mediastinum: No evidence of mediastinal widening or cardiac silhouette enlargement; the mediastinum and heart appear within normal limits for contour and size. Diaphragm: There is elevation of the right hemidiaphragm. Bones/joints: No evidence of acute osseous abnormalities within the visualized portions of the thoracic spine and ribs. Osseous structures appear appropriate for patient age. IMPRESSION: No dense parenchymal consolidation, pleural effusion, or pneumothorax.
[2024-03-21 15:09] LABS: Basophils # 0.1 K/mm3 (0-0.2); Basophils % 0.9 % (0.1-2.0); Eosinophils % 0.4 % (0.1-12.0); Hematocrit 45.6 % (37.0-47.0); Hemoglobin 14.8 g/dL (12.2-16.2); Lymphocytes # 3.8 K/mm3 (0.7-4.5); Lymphocytes % 40.9 % (10-50); Mean Corpuscular HGB Conc 32.5 g/dL (31.8-35.4); Mean Corpuscular Hemoglobin 29.5 pg (27.0-31.2); Mean Corpuscular Volume 90.8 fl (81-99); Mean Platelet Volume 8.7 fl (7.4-10.4); Monocytes # 0.6 K/mm3 (0.1-1.0); Monocytes % 6.6 % (1.7-9.3); Neutrophils # 4.6 K/mm3 (1.8-7.8); Neutrophils % 50.1 % (37.0-80.0); Platelet Count 362 K/mm3 (142-424); Red Blood Count 5.02 M/mm3 (4.20-5.40); Red Cell Distribution Width 16.2 % (11.5-17.5); White Blood Count 9.2 K/mm3 (4.8-10.8)
[2024-03-21 15:17] LABS: Alanine Aminotransferase 23 U/L (12-78); Albumin Level 4.7 g/dl (3.5-5.0); Albumin/Globulin Ratio 1.5 (1.1-1.8); Alkaline Phosphatase 158 U/L (38-126); Anion Gap 14.6 mEq/L (5-15); Aspartate Amino Transferase 30 U/L (14-36); Bilirubin,Total 0.3 mg/dl (0.2-1.3); Blood Urea Nitrogen 11 mg/dl (7-17); Calcium 9.5 mg/dl (8.4-10.2); Carbon Dioxide 30 mmol/L (22.0-30.0); Chloride 98 mmol/L (98-107); Creatinine Clearance Estimated 80 mL/min (50-200); Estimated Glomerular Filt Rate 65 ml/min (>60); GFR (African American) 79 ML/MIN (>60); Globulin 3.1 g/dL (1.3-3.2); Glucose 101 mg/dl (74-100); Potassium 3.6 mmoL/L (3.5-5.1); Sodium 139 mmol/L (136-145); Total Protein,Serum 7.8 g/dl (6.3-8.2)
[2024-03-21 15:30] VITALS: BP 131/107; PULSE 79; O2SAT 98
[2024-03-21 15:46] LABS: NT Pro Brain Natriuretic Pep. < 20.0 pg/mL (0-125)
[2024-03-21 15:47] LABS: Troponin I < 0.01 ng/ml (0.00-0.034)
[2024-03-21] MEDS: BELLADONNA ALKALOIDS 60 ML ML PO (15:47)
[2024-03-21 15:53] LABS: D-Dimer 0.33 ug/mL (0.0-0.5)
[2024-03-21 16:18] LABS: Hepatitis C Ab Qual. W/ RFX NEGATIVE (Negative)
[2024-03-21 16:42] VITALS: BP 152/95; PULSE 80; RESP 18; TEMP 36.9; O2SAT 99
[2024-03-21 16:47] LABS: HIV Combo NEGATIVE (Negative)
== END 2024-03-21 16:43 | disposition home or self-care (01) ==
PROVIDERS: Physician Assistant; Emergency Provider Emergency Medicine; PCP Family Medicine
DX: R07.9 Chest pain, unspecified (principal)
CPT/HCPCS: 71046; 80053; 83880; 84484; 85025; 85378; 86803; 87389; 93005; 99284

== ENCOUNTER 2024-10-10 12:42 | Outpatient (CLI) | payer OTHER, SELFPAY ==
--- OUTSIDE RECORDS SUMMARY | 2024-08-23 12:45 | XMS_ITS | Encounter Summary ---
[facility] [address] [place] [address] Care Team Providers Care Instructor Hairspring Name Role Phone Chetna Dallas PA-C Primary Care Provider Reason for Visit * Diagnostic Imaging (Emergency) - Closed Specialty Diagnoses / Procedures Referred By Shane t Referred To Contact Radiology Diagnoses Cervical spondylosis with myelopathy S/P cervical spinal fusion Procedures XR Spine Cervical 2 View Chetna Dallas PA-C [address] [address] Phone: tel: fax: [facility] [address] [place] [address] Phone: tel: Referral ID Status Reason Start Date Expiration Date Visits Re quested Visits Authorized [id number] Closed 08/23/2024 11/22/2025 1 1 Encounter Details Date Type Department Care Team (Late st Contact Info) Description 08/23/2024 12:45 PM EDT - 08/23/2024 11:59 PM EDT Hospital Encounter [facility] [address] [place] [address] Chetna Dallas PA-C [address] [place] [address] Discharge Disposition: Home or Self Care Social History Tobacco Use Types Packs/Day Years Used Date Smoking Tobacco: Former Cigarettes 0.5 10 0 02/27/2006 - 02/27/2011 Passive Smoke Exposure: Past Smokeless Tobacco: Never Comments:Quit Alcohol Use Standard Drinks/Week Comments Not Currently 2 (1 standard drink = 0.6 oz pur e alcohol) occasionally AUDIT-C Answer Date Recorded Q1: How often do you have a drink containing alcohol? Never 12/29/2021 Q2: How many drinks containi ng alcohol do you have on a typical day when you are drinking? Patient does not drink Q3: How often do you have si x or more drinks on one occasion? Never 12/29/2021 Abuse Screen Answer Date Recorded Feels Unsafe at Home or Work/School no 11/03/2023 Feels Threatened by Someone no 07/2023 Does Anyone Try to Keep You From Having Contact with Others or Doing Things Outside Your Home? no 11/03/2023 Physical Signs of Abuse Present no 11/03/2023 Housing Stability Answer Date Recorded Current Living Arrangements home 07/2023 Potentially Unsafe Housing Conditions Not on grazyna e 11/03/2023 Disabilities Answer Date Recorded Difficulty Concentrating, Remembering or Making Decisions no 11/03/2023 Difficulty Managing Errands Independently no 11/03/2023 Education Answer Date Recorded Help with school or training? Not on file Preferred Language Filipino 10/23/2023 Comments No Sex and Gender Information Value Date Recorded Sex Assigned at Female 08/22/2024 1:57 PM EDT Legal Sex Female 11:25 AM EDT Gender Identity Not on file Sexual Orientation Straight 08/22/2024 1: 57 PM EDT documented as of this encounter Medications at Time of Discharge ALPRAZolam (XANAX) 1 MG tablet Take 1 tablet by mouth 3 (Three) Times a Day. 1/2 tab in the morning, 1/2 in the afternoon, and 1 tab at bedtime 05/18/2021 bisoprolol-hydro chlorothiazide (ZIAC) 10-6.25 MG per tablet Take 1 tablet by mouth Daily. 01/21/2022 budesonide-formo terol (SYMBICORT) 160-4.5 MCG/ACT inhaler Inhale 2 puffs 2 (Two) Times a Day. losartan (COZAAR) 25 MG tablet Take 1 tablet by mouth Daily. montelukast (SINGULAIR) 10 MG tablet Take 1 tablet by mouth Every Night. QUEtiapine (SEROquel) 100 MG tablet Take 0.5 tablets by mouth At Night As Needed. rOPINIRole (REQUIP) 2 MG tablet Take 1 tablet by mouth Every Night. 07/18/2021 rosuvastatin (CRESTOR) 20 MG tablet Take 1 tablet by mouth Daily. 06/12/2024 venlafaxine (EFFEXOR) 75 MG tablet Every 12 (Twelve) Hours. Xarelto 20 MG tablet Take 1 tablet by mouth Daily With Dinner. Pt to hold 2 days prior to procedure per Dr. Walter 11/09/2023 TiZANidine (ZANAFLEX) 4 MG capsule TAKE 1 CAPSULE BY MOUTH 3 (THREE) TIMES A DAY NEEDED FOR MUSCLE SPASMS. 45 capsule 1 07/30/2024 documented as of this encounter Plan of Treatment Upcoming Encounters Date Type Department Care Team (Late st Contact Info) Description 12/18/2024 11:15 AM EDT Office Visit [facility] [address] [id number] Apro, Chetna Rbo PA-C [address] [address] documented as of this encounter Procedures Procedure Name Priority Date/Time Associated Diagnosis Comments XR SPINE CERVICAL 2 VW STAT 08/23/2024 12:58 PM EDT Cervical spondylosis with myelopathy S/P cervical spinal fusion documented in this encounter Results * XR Spine Cervical 2 View (08/23/2024 12:58 PM EDT) Anatomical Region Laterality Modality Spine, C-spine N/A Radiographic Lianna ging 08/23/2024 1:37 PM EDT Impressions 08/23/2024 1:43 PM EDT Impression: 1.Postsurgical changes of C3-C5 anterior cervical segment fusion and interbody fusion at C5-C6 without evidence of hardware complication. Similar retrolisthesis at the C3-4 and C4-5 levels. 2.No evidence of displaced fracture or traumatic malalignment Electronically Signed: Javier Bella MD 08/23/2024 1:43 PM EDT Workstation ID: [id number] Narrative 08/23/2024 1:43 PM EDT XR SPINE CERVICAL 2 VW Date of Exam: 08/23/2024 12:48 PM EDT Indication: neck pain Comparison: 06/16/2024 Findings: Postsurgical changes of C3-C5 anterior cervical segment fusion. No evidence of hardware complication. Interbody fusion device seen at C5-6. The cervical spine is visible to the level of C7-T1 on lateral view. Again seen is 3 mm of retrolisthesis of C3 on C4 and 5 mm of retrolisthesis of C4 on C5, similar to prior examination. No new change in alignment from prior examination. Posterior element alignment appears intact. Normal atlantoaxial interval. No new vertebral body height loss. Disc degenerative disease most advanced at C7-T1. Facet arthropathy most advanced at C3-4 and C4- 5. Uncovertebral hypertrophy most advanced at C6-7. Cardiac monitoring device partially seen. Lung apices are clear. No prevertebral soft tissue swelling. Procedure Note Javier Bella MD - 08/23/2024 XR SPINE CERVICAL 2 VW Date of Exam: 08/23/2024 12:48 PM EDT Indication: neck pain Comparison: 06/16/2024 Findings: Postsurgical changes of C3-C5 anterior cervical segment fusion. Noevidence of hardware complication. Interbody fusion device seen at C5-6.The cervical spine is visible to the level of C7-T1 on lateral view. Againseen is 3 mm of retrolisthesis of C3 on C4 and 5 mm of retrolisthesis of C4 on C5, similar to prior examination.No new change in alignment from prior examination. Posterior elementalignment appears intact. Normal atlantoaxial interval. No new vertebralbody height loss. Disc degenerative disease most advanced at C7-T1. Facet arthropathy most advanced at C3-4and C4-5. Uncovertebral hypertrophy most advanced at C6-7. Cardiacmonitoring device partially seen. Lung apices are clear. No prevertebralsoft tissue swelling. IMPRESSION: Impression: 1.Postsurgical changes of C3-C5 anterior cervical segment fusion andinterbody fusion at C5-C6 without evidence of hardware complication.Similar retrolisthesis at the C3-4 and C4-5 levels. 2.No evidence of displaced fracture or traumatic malalignment Electronically Signed: Javier Bella MD 08/23/2024 1:43 PM EDT Workstation ID: [id number] Chetna Dallas PA-C IMG DIAGNOSTIC IMAGING ORDERABLES Final Result documented in this encounter Visit Diagnoses Not on filedocumented in this encounter Care Teams Instructor Hairspring Relationship Specialty Start Date End Date Chetna Dlalas PA-C [address] [place] [address] PCP - General Physician Solvent Plant Treater 08/23/24 documented as of this encounter
--- OUTSIDE RECORDS SUMMARY | 2024-08-23 14:00 | XMS_ITS | Encounter Summary ---
Author Organization [facility] Address [address] [place] [id number] Care Team Providers Care Cobbler Upper Name Role Phone Chetna Dallas PA-C Primary Care Provider Encounter Details Date Type Department Care Team (Late st Contact Info) Description 08/23/2024 2:00 PM EDT Office Visit [facility]ERY [address] [address] Chetna Dallas PA-C 1760 [facility] [address] [place] [address] Cervical spondylosis with myelopathy (Primary Dx); S/P cervical spinal fusion Social History Tobacco Use Types Packs/Day Years Used Date Smoking Tobacco: Former Cigarettes 0.5 10 0 02/27/2006 - 02/27/2011 Passive Smoke Exposure: Past Smokeless Tobacco: Never Tobacco Cessation:Counseling Given: Not Answered Comments:Quit Alcohol Use Standard Drinks/Week Comments Not [...] or training? Not on file Preferred Language Rwandan 10/23/2023 Comments No Sex and Gender Information Value Date Recorded Sex Assigned at Female 08/22/2024 1:57 PM EDT Legal Sex Female 11:25 AM EDT Gender Identity Not on file Sexual Orientation Straight 08/22/2024 1: 57 PM EDT documented as of this encounter Last Filed Vital Signs Vital Sign Reading Time Taken Comments Blood Pressure - - Pulse - - Temperature 36.2 C (97.1 F) 08/23/2024 1:31 PM EDT Respiratory Rate - - Oxygen Saturation - - Inhaled Oxygen Concentration - - Weight 62.4 kg (137 lb 8 oz) 08/23/2024 1:31 PM EDT Height 162.6 cm (5' 4 ) 08/23/2024 1:31 PM EDT Body Mass Index 23.6 08/23/2024 1:31 PM EDT documented in this encounter Progress Notes * Celena, Chetna Rob PA-C - 08/23/2024 2:00 PM EDT Patient: Mariama Pantoja : 1970 Chart #: [id number] Date of Service: 08/23/2024 CHIEF COMPLAINT: Neck pain with numbness in the hands History of Present Illness Patient is a very pleasant 53-year-old retired woman who underwent ACDF with Dr. Skelton in 2007. More recently she presented to our clinic with a 1 year history of progressive numbness and tingling in her hands and arms. Studies demonstrated significant cervical stenosis.As such on 11/03/2023 she underwent ACDF C3-5. Postoperatively she has had a great deal of dorsal neck pain and soreness. That has all improved albeit is not absent. Fortunately she is doing a little better. She has good days and bad. She experienced flushing with Robaxin but it helped with some of the muscle spasms. Today she reports occasional numb feeling down the right arm into the hand. She isformally applied for disability. Past Medical History: Diagnosis Date Anxiety Arthritis 2008 Asthma Cervical disc disorder 2022 COPD (chronic obstructive pulmonary disease) controlled on daily symbicort Deep vein thrombosis 2019 Depression Elevated transaminase level GERD (gastroesophageal reflux disease) Headache Heartburn otc omeprazole prn, EGD Dr. Bowen 10/18 Hiatal hernia with gastroesophageal reflux 12/09/2021 Upper GI 11/18 Kidney infarction right Low back pain 2008 Other hyperlipidemia Overweight (BMI 25.0-29.9) PONV (postoperative nausea and vomiting) Primary hypertension Renal infarct 01/2021 normal kidney function, had neg hem eval with loop recorder currently, was on lovenox x 2 weeks then warfarin since RLS (restless legs syndrome) Spinal headache Thoracic disc disorder 2022 Current Outpatient Medications: ALPRAZolam (XANAX) 1 MG tablet, Take 1 tablet by mouth 3 (Three) Times a Day. 1/2 tab in the morning, 1/2 in the afternoon, and 1 tab at bedtime, Disp: , Rfl: bisoprolol-hydrochlorothiazide (ZIAC) 10-6.25 MG per tablet, Take 1 tablet by mouth Daily., Disp: ,Rfl: montelukast (SINGULAIR) 10 MG tablet, Take 1 tablet by mouth Every Night., Disp: , Rfl: QUEtiapine (SEROquel) 100 MG tablet, Take 0.5 tablets by mouth At Night As Needed., Disp: , Rfl: rOPINIRole (REQUIP) 2 MG tablet, Take 1 tablet by mouth Every Night., Disp: , Rfl: rosuvastatin (CRESTOR) 20 MG tablet, Take 1 tablet by mouth Daily., Disp: , Rfl: TiZANidine (ZANAFLEX) 4 MG capsule, TAKE 1 CAPSULE BY MOUTH 3 (THREE) TIMES A DAY NEEDED FOR MUSCLE SPASMS., Disp: 45 capsule, Rfl: 1 venlafaxine (EFFEXOR) 75 MG tablet, Every 12 (Twelve) Hours., Disp: , Rfl: Xarelto 20 MG tablet, Take 1 tablet by mouth Daily With Dinner. Pt to hold 2 days prior to procedure per Dr. Walter, Disp: , Rfl: budesonide-formoterol (SYMBICORT) 160-4.5 MCG/ACT inhaler, Inhale 2 puffs 2 (Two) Times a Day. (Patient not taking: Reported on 08/23/2024), Disp: , Rfl: losartan (COZAAR) 25 MG tablet, Take 1 tablet by mouth Daily. (Patient not taking: Reported on 08/23/2024), Disp: , Rfl: Past Surgical History: Procedure Laterality Date ANTERIOR CERVICAL DISCECTOMY W/ FUSION N/A 11/03/2023 Procedure: CERVICAL DISCECTOMY ANTERIOR WITH FUSION C2-C5; Surgeon: Abilio Leon MD; Location[facility]; Service: Neurosurgery; Laterality: N/A; CARDIAC CATHETERIZATION 01/2021 CERVICAL SPINE SURGERY 2008 Anterior cervical surgery C5-6-- Dr. Chaaprro Skelton COLONOSCOPY ENDOSCOPY N/A 12/29/2021 Procedure: ESOPHAGOGASTRODUODENOSCOPY; Surgeon: Luis Bowen MD; Location: [facility]; Service: Bariatric; Laterality: N/A; GREATER CURVATURE PLICATION N/A 12/29/2021 Procedure: LAPAROSCOPIC GREATER CURVATURE PLICATION; Surgeon: Luis Bowen MD; Location: [facility]; Service: Bariatric; Laterality: N/A; HEMORRHOIDECTOMY 2003 HIATAL HERNIA REPAIR N/A 12/29/2021 Procedure: HIATAL HERNIA REPAIR LAPAROSCOPIC; Surgeon: Luis Bowen MD; Location: [facility]; Service: Bariatric; Laterality: N/A; HYSTERECTOMY vaginal, partial LAPAROSCOPIC TUBAL LIGATION Social History Socioeconomic History Marital status: Tobacco Use Smoking status: Former Current packs/day: 0.00 Average packs/day: 0.5 packs/day for 10.0 years (5.0 ttl pk-yrs) Types: Cigarettes Start date: 02/27/2006 Quit date: 02/27/2011 Years since quittin.4 Passive exposure: Past Smokeless tobacco: Never Tobacco comments: Quit Vaping Use Vaping status: Never Used Substance and Sexual Activity Alcohol use: Not Currently Alcohol/week: 2.0 standard drinks of alcohol Types: 2 Drinks containing 0.5 oz of alcohol per week Comment: occasionally Drug use: Never Sexual activity: Yes Partners: Male control/protection: Tubal ligation, Hysterectomy Comment: Review of Systems Constitutional: Negative for activity change, appetite change, chills, diaphoresis, fatigue, fever and unexpected weight change. HENT: Negative for congestion, dental problem, drooling, ear discharge, ear pain, facial swelling, hearing loss, mouth sores, nosebleeds, postnasal drip, rhinorrhea, sinus pressure, sinus pain, sneezing, sore throat, tinnitus, trouble swallowing and voice change. Eyes: Negative for photophobia, pain, discharge, redness, itching and visual disturbance. Respiratory: Negative for apnea, cough, choking, chest tightness, shortness of breath, wheezing andstridor. Cardiovascular: Negative for chest pain, palpitations and leg swelling. Gastrointestinal: Negative for abdominal distention, abdominal pain, anal bleeding, blood in stool,constipation, diarrhea, nausea, rectal pain and vomiting. Endocrine: Negative for cold intolerance, heat intolerance, polydipsia, polyphagia and polyuria. Genitourinary: Negative for decreased urine volume, difficulty urinating, dyspareunia, dysuria, enuresis, flank pain, frequency, genital sores, hematuria, menstrual problem, pelvic pain, urgency, vaginal bleeding, vaginal discharge and vaginal pain. Musculoskeletal: Positive for neck pain and neck stiffness. Negative for arthralgias, back pain, gait problem, joint swelling and myalgias. Skin: Negative for color change, pallor, rash and wound. Allergic/Immunologic: Negative for environmental allergies, food allergies and immunocompromised state. Neurological: Positive for numbness. Negative for dizziness, tremors, seizures, syncope, facial asymmetry, speech difficulty, weakness, light-headedness and headaches. Hematological: Negative for adenopathy. Does not bruise/bleed easily. Psychiatric/Behavioral: Negative for agitation, behavioral problems, confusion, decreased concentration, dysphoric mood, hallucinations, self-injury, sleep disturbance and suicidal ideas. The patientis not nervous/anxious and is not hyperactive. Objective Vital Signs: Temperature 97.1 ??F (36.2 ??C), temperature source Infrared, height 162.6 cm (64 ), weight 62.4 kg (137 lb 8 oz). Physical Exam Vitals and nursing note reviewed. Constitutional: General: She is not in acute distress. Appearance: She is well-developed. HENT: Head: Normocephalic and atraumatic. Psychiatric: Behavior: Behavior normal. Thought Content: Thought content normal. Plain films of the cervical spine are stable. There is retrolisthesis of C3 on 4 and 4 on 5. No change in alignment when compared to previous x-ray. No evidence of hardware complication. Reviewed with Dr. Leon Assessment & Plan Diagnosis: Cervical spondylosis with myelopathy status post ACDF C3-5 Medical Decision Making: Patient is doing well. Lately she has been having occasional numbness downthe right arm which we will monitor. She is formally filing for disability. I would like to see kristi in another 3 months with plain films to check her hardware.. Diagnoses and all orders for this visit: 1. Cervical spondylosis with myelopathy (Primary) 2. S/P cervical spinal fusion Chetna Dallas PA-C Patient Care Team: Chetna Dallas PA-C as PCP - General (Physician Yoga Teacher) Romana Heath PA as Referring Physician (Physician Yoga Teacher) Abilio Leon MD as Consulting Physician (Neurosurgery) Sal Walter MD as Consulting Physician (Interventional Cardiology) documented in this encounter Plan of Treatment Upcoming Encounters Date Type Department Care Team (Late st Contact Info) Description 12/18/2024 11:15 AM EDT Office Visit [facility] [address] [address] Chetna Dallas PA-C [address] [address] documented as of this encounter Visit Diagnoses Diagnosis Cervical spondylosis with myelopathy- Primary S/P cervical spinal fusion Arthrodesis status documented in this encounter Care Teams Cobbler Upper Relationship Specialty Start Date End Date Chetna Dallas PA-C [address] [address] PCP - General Physician Yoga Teacher 08/23/24 documented as of this encounter
--- OUTSIDE RECORDS SUMMARY | 2024-08-26 09:15 | XMS_ITS ---
Author Organization [facility] Address [address] [place] [id number] Care Team Providers Care Fleece Tier Name Role Phone Beba Lam Primary Care [...] 201 Performing Lab: Notes/Report: Test performed by [employer], [facility] , [address], [place] [address] Jayden Stone MD, Director Behavioral Health CLIA: [id number] Cholesterol 220 <200 mg/dL Triglycerides 201 <150 [...] Problem Status W/U Status Risk Notes Problem Acute allergic rhinitis (J30.9) Active confirmed Problem Dyslipidemia (926677777) Dyslipidemia (E78.5) Active confirmed Vital Signs Blood pressure systolic 142 mm Hg 08/27/19 25 Blood pressure diastolic 90 mm Hg 025 Heart Rate 82 /min 08/26/2024 Height 65.25 in 08/26/2024 Weight 138.0 lbs 08/26/2024 BMI 22.79 kg/m2 08/26/2024 Encounters Encounter Location Date Provider Diagnosis [facility] [facility] [address], [place] [id number] 08/26/2024 Beba Lam Essential hypertensi on I10 [...] 6 Weeks, Reason: Provider Name:Beba Singleton er, 10/10/2024 02:15:00 PM, [address] [facility] [address], [place], [place], [id number], Progress Notes * TONY DAMICOИВАНDOB: [birth year] (53 yo F)Acc No.[id number]:08/26/2024 Progress Notes Patient: FROYLAN WILLIS Provider: Beba Lam M.D. :1970 A ge:53 Y S ex:Female Date:08/26/2024 Address:[place], [id number] Subjective: * Chief Complaints: * 1 . 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 B [place] 22.0-22.9, adult - Z68.22 Plan: * Treatment: [...] * Images: Billing Information: * Visit Code: 73916 Office Visit, Est Pt., Level 4. * Procedure Codes: 36704 CBC WITH AUTO DIFF. 1036F TOBACCO NON-USER. G8420 BMI<30 AND >=22 CALC & DOCU. G8950 PREHTN/HTN BP DOC INDCD F/U DOC. G8753 MOST RECENT SYSTOLIC BP >= 140MM HG. G8755 MOST RECENT DIASTOLIC BP >= 90MM HG. * Electronic signature of Beba Lam MD on 10/10/2024 at 12:45 PM EDT Sign off status: Pending * Provider: Beba Lam M.D. Date: 0 08/26/2024 Generated for Dulce Maria lowry/Apolinar/Dreitting on: 0 10/10/2024 12:45 PM EDT History and Physical Notes * [...]
--- OUTSIDE RECORDS SUMMARY | 2024-09-10 07:37 | XMS_ITS ---
[facility] [address] [facility] 36 [facility] [address] [place] [id number] Care Team Providers Care Sales Operations Specialist Name Role Phone Beba Lam Primary Care Provider [phone] REASON FOR VISIT due khushbu, col Encounters Encounter Location Date Provider Diagnosis [facility] [address] [facility] [address] [place] [phone] 09/10/2024 Beba Lam Screening for breast cancer Z12.39 Assessments Encounter Date Diagnosis (ICD Code) Assessment Notes Treatment Notes Treatment Clinical Notes Section Notes 09/10/2024 Screening for breast cancer (ICD-10 - Z12.39) Plan Of Treatment Pending Test Test Name Order Date Mammogram 09/10/2024 Next Appt Details Provider Name:Beba Singleton er, 10/10/2024 02:15:00 PM, [facility], [address], [place], [id number], Progress Notes * FROYLAN DAMICODOB: [birth year] (53 yo F)Acc No.[id number]:09/10/2024 Patient: FROYLAN WILLIS :1970 A ge:53 Y S ex:Female Address:[place], [address] Subjective: * Chief Complaints: * D ue khushbu, col * Medical History: * Surgical History: * Hospitalization/Major Diagno stic Procedure: * Medications: Objective: * Vitals: * Physical Examination: Assessment: * Assessment: 1. S creening for breast cancer - Z12.39 (Primary) Plan: * Treatment: * Procedure Codes: * true * Date: Generated for Dulce Maria lowry/Apolinar/Ron on: 0 10/10/2024 12:45 PM EDT
--- OUTSIDE RECORDS SUMMARY | 2024-10-10 12:45 | XMS_ITS | Clinical Summary ---
Author Organization [facility] Address [address] [place] [address] Care Team Providers Care Human Resources Recruiter Name Role Phone Chetna Dallas PA-C Primary Care Provider Allergies Active Allergy Reactions Criticality Noted Date Comments Codeine Hives Medium 07/21/2021 Gadolinium Derivatives (Mr Contrast) Anaphylaxis High 10/06/2023 Ibuprofen Shortness Of Breath High 08/31/2022 Can't take d/t CKD Methocarbamol Rash Low 03/20/2024 Morphine Hives,Nausea And Vomiting,Rash,Mental Status Change Medium 07/21/2021 Oxycodone-Acetaminophen Nausea And Vomiting,GI Intolerance Low 07/21/2021 Medications * This document contains information received from the source organization and may not represent a complete record from that organization. ALPRAZolam (XANAX) 1 MG tablet Take 1 tablet by mouth 3 (Three) Times a Day. 1/2 tab in the morning, 1/2 in the afternoon, and 1 tab at bedtime 05/19/19 Active rOPINIRole (REQUIP) 2 MG tablet Take 1 tablet by mouth Every Night. 07/19/19 Active montelukast (SINGULAIR) 10 MG tablet Take 1 tablet by mouth Every Night. Active QUEtiapine (SEROquel) 100 MG tablet Take 0.5 tablets by mouth At Night As Needed. Active budesonide-for moterol (SYMBICORT) 160-4.5 MCG/ACT inhaler Inhale 2 puffs 2 (Two) Times a Day. Active bisoprolol-hyd rochlorothiazi de (ZIAC) 10-6.25 MG per tablet Take 1 tablet by mouth Daily. 01/22/20 22 Active Xarelto 20 MG tablet Take 1 tablet by mouth Daily With Dinner. Pt to hold 2 days prior to procedure per Dr. Walter 11/09/19 24 Active losartan (COZAAR) 25 MG tablet Take 1 tablet by mouth Daily. Active venlafaxine (EFFEXOR) 75 MG tablet Every 12 (Twelve) Hours. Active rosuvastatin (CRESTOR) 20 MG tablet Take 1 tablet by mouth Daily. 06/13/19 25 Active TiZANidine (ZANAFLEX) 4 MG capsule TAKE 1 CAPSULE BY MOUTH 3 (THREE) TIMES A DAY NEEDED FOR MUSCLE SPASMS. 45 capsule 1 09/24/19 25 Active TiZANidine (ZANAFLEX) 4 MG capsule TAKE 1 CAPSULE BY MOUTH 3 (THREE) TIMES A DAY NEEDED FOR MUSCLE SPASMS. 45 capsule 1 07/31/19 25 025 Discontinued Active Problems Problem Noted Date Diagnosed Date Cervical spondylosis with myelopathy 10/06/2023 Obesity (BMI 30.0-34.9) 12/07/2021 Other hyperlipidemia 07/21/2021 Primary hypertension 07/21/2021 COPD (chronic obstructive pulmonary disease) Overview (07/21/2021): controlled on daily symbicort Heartburn 07/21/2021 Overview (07/21/2021): otc omeprazole prn, no prior EGD or h pylori Anxiety 07/21/2021 Depression 07/21/2021 RLS (restless legs syndrome) 07/21/2021 Overweight (BMI 25.0-29.9) 07/21/2021 Renal infarct 01/27/2021 Overview (07/21/2021): normal kidney function, had neg hem eval with loop recorder currently Resolved Problems Problem Noted Date Diagnosed Date Resolved Date Hiatal hernia with gastroesophageal reflux 12/09/2021 12/29/2021 Overview (12/09/2021): Added automatically from request for surgery [id number] Encounters Date Type Department Care Team Description 09/23/2024 Refill [facility] [address] [facility] [address] [place] [address] Chetna Dallas PA-C 08/23/2024 2:00 PM EDT Office Visit [facility] [address] [facility] [address] [place] [address] Chetna Dallas PA-C Cervical spondylosis with myelopathy (Primary Dx); S/P cervical spinal fusion 08/23/2024 12:45 PM EDT - 08/23/2024 11:59 PM EDT Hospital Encounter [facility] XRAY [address] [place] [address] Chetna Dallas PA-C Discharge Disposition: Home or Self Care 08/23/2024 Travel 07/30/2024 Refill [facility] [address] [facility] [address] [place] [address] Chetna Dallas PA-C 07/10/2024 Telephone [facility] [address] [facility] [address] [place] [address] Chetna Dallas PA-C PAIN PATCHES - APRO from Last 3 Months Family History Medical History Relation Name Comments Arthritis Father Jose Luis alfonso Asthma Father Jose Luis alfonso COPD Father Jose Luis alfonso Cancer Father Jose Luis alfonso Diabetes Father Jose Luis alfonso Heart disease Father Jose Luis alfonso Hyperlipidemia Father Jose Luisgordon alfonso Hypertension Father Jose Luis alfonso Vision loss Father Jose Luis alfonso Depression Maternal Grandmother Genevieve quevedo Arthritis Mother Estefani alfonso Asthma Other Vivienne perraut Relation Name Status Comments Father Jose Luis alfonso Maternal Grandmother Genevieve quevedo Mother Estefani alfonso Other Vivienne perraut Social History Tobacco Use Types Packs/Day Years [...] or training? Not on file Preferred Language Burundian 10/23/2023 Comments No Sex and Gender Information Value Date Recorded Sex Assigned at Female 08/22/2024 1:57 PM EDT Legal Sex Female 11:25 AM EDT Gender Identity Not on file Sexual Orientation Straight 08/22/2024 1: 57 PM EDT Last Filed Vital Signs Vital Sign Reading Time Taken Comments Blood Pressure 124/74 03/20/2024 2:31 PM EST Pulse 84 11/03/2023 5:00 PM EDT Temperature 36.2 C (97.1 F) 08/23/2024 1:31 PM EDT Respiratory Rate 17 11/24/2023 9:47 AM EDT Oxygen Saturation 99% 11/03/2023 5:00 PM EDT Inhaled Oxygen Concentration - - Weight 62.4 kg (137 lb 8 oz) 08/23/2024 1:31 PM EDT Height 162.6 cm (5' 4 ) 08/23/2024 1:31 PM EDT Body Mass Index 23.6 08/23/2024 1:31 PM EDT Plan of Treatment Upcoming Encounters Date Type Department Care Team (Late st Contact Info) Description 12/18/2024 11:15 AM EDT Office Visit [facility] [address] [facility] [address] [place] [address] Chetna Dallas PA-C [address] [facility] [address] [place] [address] Health Maintenance Due Date Last Done Comments Annual Gynecologic Pelvic and Breast Exam 1970 Pneumococcal Vaccine 50+ (1 of 2 - PCV) 11/06/1987 MAMMOGRAM 2008 COLOGUARD 2013 COLON CANCER SCREENING 5 YEA R SIGMOIDOSCOPY 2013 COLONOSCOPY 2013 [address] CANCER SCREENING 2013 CT COLONOGRAPHY 2013 FECAL OCCULT BLOOD TEST 2013 FIT Testing (1 year) 2013 ANNUAL PHYSICAL 07/21/2021 HEPATITIS C SCREENING 07/21/2021 LIPID PANEL 07/21/2022 07/21/2021 COVID-19 Vaccine ( - season) 2023 INFLUENZA VACCINE 11/27/2024 TDAP/TD VACCINES (2 - Td or Tdap) 01/02/2031 021 ZOSTER VACCINE Completed 03/02/2019, 2018 Goals Goal Patient Goal Type Associated Problems Recent Progress Patient-Stated? Author Autogenerat ed Goal Care Plan Autogenerated Problem No Abilio Leon MD Medical Devices Implanted Type Area Fire Protection Equipment Technician Device Identifier Shelf Expiration Date Model / Serial / Lot Loop Recorder Implant Dev Cls Wnd Vloc/Pbt Melissa Nonabs 1/2cir Sz2/0 26mm 30cm Kalia - [id number] Implanted:Qt y: 3 on 12/29/2021 by Luis Bowen MD at [facility] Implant N/A: Stomach COVIDIEN 05/27/2024 [id number] / / [id number] Dev Cls Wnd Vloc/Pbt Melissa Nonabs 1/2cir Sz2/0 26mm 15cm Kalia - [id number] Implanted:Qt y: 1 on 12/29/2021 by Luis Bowen MD at [facility] Implant N/A: Abdomen COVIDIEN 05/27/2024 [id number] / / [id number] Bone Lordotic Asr [id number] d - [id number] - [id number] Implanted:Qt y: 1 on 11/03/2023 by Abilio Leon MD at [facility] Implant N/A: Spine Cervical [employer] 02/16/2026 [id number] / [id number] / [id number] Plt Acp Zevo 05opf9bq Ns - [id number] Implanted:Qt y: 1 on 11/03/2023 by Abilio Leon MD at [facility] Implant N/A: Spine Cervical [employer] [id number] / / NA Scrw St Zevo 2thrd S/Tap 3.5x13mm - [id number] Implanted:Qt y: 6 on 11/03/2023 by Abilio Leon MD at [facility] Implant N/A: Spine Cervical [employer] [id number] / / NA Clip Ligat Vasc Horizon Ti Sm Yel 6ct - [id number] Implanted:Qt y: 1 on 11/03/2023 by Abilio Leon MD at [facility] Implant N/A: Spine Cervical [employer] 12/27/2027 [id number] / / [id number] Clip Ligat Vasc Horizon Reilly Klein Kalia 6ct - [id number] Implanted:Qt y: 1 on 11/03/2023 by Abilio Leon MD at [facility] Implant N/A: Spine Cervical [employer] MED[employer] 07/02/2028 [id number] / / [id number] Hemost Abs Surgifoam Sz100 8x12 10mm - [id number] Implanted:Qt y: 1 on 11/03/2023 by Abilio Leon MD at [facility] Implant N/A: Spine Cervical [employer] J [id number] 06/29/20271973 / / [id number] Kt Seal Hemos Abs Floseal Matrx Fast/Prep 10ml - [id number] Implanted:Qt y: 1 on 11/03/2023 by Abilio Leon MD at [facility] Implant N/A: Spine Cervical [facility] [id number] 07/31/2024 [id number] / / [id number] Wax Bone Hemo Mary Kays [place] 2.5gm t - [id number] Implanted:Qt y: 1 on 11/03/2023 by Abilio Leon MD at [facility] Implant N/A: Spine Cervical [employer] MARNI 901 / / Bone Lordotic Asr [id number] Fzd - [id number] - [id number] Implanted:Qt y: 1 on 11/03/2023 by Abilio Leon MD at [facility] Implant N/A: Spine Cervical [employer] 04/13/2026 [id number] / [id number] / [id number] Procedures Procedure Name Priority Date/Time Associated Diagnosis Comments XR SPINE CERVICAL 2 VW STAT 08/23/2024 12:58 PM EDT Cervical spondylosis with myelopathy S/P cervical spinal fusion LIPID PANEL Routine 07/21/2021 12:07 PM EDT Other hyperlipidemia Primary hypertension Overweight (BMI 25.0-29.9) Heartburn Renal infarct Anxiety Depression, unspecified depression type RLS (restless legs syndrome) Chronic obstructive pulmonary disease, unspecified COPD type from Last 3 Months or Most Recently Relevant to Health Maintenance Results * XR Spine Cervical 2 View [...] MD 08/23/2024 1:43 PM EDT Workstation ID: [id number] Narrative 08/23/2024 1:43 PM EDT XR SPINE [...] MD 08/23/2024 1:43 PM EDT Workstation ID: [id number] Chetna Dallas PA-C IMG DIAGNOSTIC IMAGING ORDERABLES Final Result * Lipid Panel (07/21/2021 12:07 PM EDT) Total Cholesterol 186 100 - 199 mg/dL [facility] Triglycerides 101 0 - 149 mg/dL [facility] HDL Cholesterol 75 >39 mg/dL [facility] VLDL Cholesterol Juan 18 5 - 40 mg/dL [facility] LDL Chol Calc (NIH) 93 0 - 99 mg/dL [facility] Blood 07/21/2021 12:0 7 PM EDT 07/21/2021 Narrative [facility] ([facility]) - 07/22/2021 1:08 PM EDT Performed at: 01 - [facility] [address] [place] [id number] Cd Manufacturing Supervisor: Bonifacio Yates PhD, Phone: [phone] Patient Fasting: N Ping Martin PA-C LAB BLOOD ORDERABLES Final Result [facility] (AMBULATORY) [address] [place] [address], [facility] [address] [place] [address], from Last 3 Months or Most Recently Relevant to Health Maintenance Additional Health Concerns Active Problems Noted Date Diagnosed Date Autogenerated Problem 08/30/2024 Insurance [facility] PATH[facility]AY HMO Advance Directives * CPR (Attempt to Resuscitate) (Latest Code Status on File) Date Activated Date Inactivated Comments 12/29/2021 1:53 PM 12/30/2021 5:27 PM Question Answer Comments Code Status (Patient has no pulse and is not breathing): CPR (Attempt to Resuscitate) Medical Interventions (Patie nt has pulse or is breathing): Full Support Level Of Support Discussed With: Patient Release to patient: Routine Release Care Teams Human Resources Recruiter Relationship Specialty Start Date End Date Celena, Chetna Rob PA-C [address] [place] [address] PCP - General Physician Squaring Machine Operator 08/23/24
--- OUTSIDE RECORDS SUMMARY | 2024-10-10 12:45 | XMS_ITS | Encounter Summary ---
Author Organization [facility] Address [address] [place] [id number] Care Team Providers Care Landscaping And Groundskeeping Laborer Name Role Phone Chetna Dallas PA-C Primary Care Provider Reason for Visit * Reason Comments Med Refill Encounter Details Date Type Department Care Team (Late st Contact Info) Description 09/23/2024 Refill [facility] NEUROSURGERY [address] [address] Chetna Dallas PA-C [address] [address] Social History Tobacco Use Types Packs/Day Years [...] or training? Not on file Preferred Language Bahamian 10/23/2023 Comments No Sex and Gender Information Value Date Recorded Sex Assigned at Female 08/22/2024 1:57 PM EDT Legal Sex Female 11:25 AM EDT Gender Identity Not on file Sexual Orientation Straight 08/22/2024 1: 57 PM EDT documented as of this encounter Plan of Treatment Upcoming Encounters Date Type Department Care Team (Late st Contact Info) Description 12/18/2024 11:15 AM EDT Office Visit [facility] NEUROS[facility] [address] [address] Chetna Dallas PA-C [address] [address] documented as of this encounter Goals Goal Patient Goal Type Associated Problems Recent Progress Patient-Stated? Author Autogenerat ed Goal Care Plan Autogenerated Problem No Abilio Leon MD documented as of this encounter Visit Diagnoses Not on filedocumented in this encounter Additional Health Concerns Active Problems Noted Date Diagnosed Date Autogenerated Problem 08/30/2024 documented as of this encounter Care Teams Landscaping And Groundskeeping Laborer Relationship Specialty Start Date End Date Chetna Dallas PA-C [address] [address] PCP - General Physician Tongue And Quarter Stitcher 08/23/24 documented as of this encounter
--- OUTSIDE RECORDS SUMMARY | 2024-10-10 12:45 | XMS_ITS | Encounter Summary ---
Author Organization [facility] Address [address] [place] [address] Care Team Providers Care Lime Supervisor Name Role Phone Chetna Dallas PA-C Primary Care Provider Encounter Details Date Type Department Care Team (Latest Contact Info) Description 08/23/2024 Travel Social History Tobacco Use Types Packs/Day Years [...] or training? Not on file Preferred Language Chilean 10/23/2023 Comments No Sex and Gender Information Value Date Recorded Sex Assigned at Female 08/22/2024 1:57 PM EDT Legal Sex Female 11:25 AM EDT Gender Identity Not on file Sexual Orientation Straight 08/22/2024 1: 57 PM EDT documented as of this encounter Plan of Treatment Upcoming Encounters Date Type Department Care Team (Late st Contact Info) Description 12/18/2024 11:15 AM EDT Office [facility] [address] [facility] [address] [place] [address] Chetna Dallas PA-C [address] [place] [address] documented as of this encounter Visit Diagnoses Not on filedocumented in this encounter Care Teams Lime Supervisor Relationship Specialty Start Date End Date Chetna Dallas PA-C [address] [address] PCP - General Physician Recruiting Team Lead 08/23/24 documented as of this encounter
--- NOTE | 2024-10-10 12:46 | MM_ITS ---
PROCEDURE INFORMATION: Exam: MG Bilateral Screening 3D Mammography Exam date and time: 10/10/2024 1:06 PM Age: 53 years old Clinical indication: Screening examination TECHNIQUE: Imaging protocol: Bilateral Screening tomosynthesis and 2D mammography including computer-aided detection (CAD) when performed. COMPARISON: 1. MG MM DIG SCREENING MAMM BI W/CAD 04/15/2022 4:26 PM 2. MG DMSB DIG MAMM-SCREEN EZ 08/26/2015 4:12 PM FINDINGS: MAMMOGRAPHY: Breast composition: There are scattered areas of fibroglandular density. Mass: No suspicious masses. Architectural distortion: None. Calcifications: No suspicious calcifications. Asymmetric density: None. Skin thickening: None. Axillary adenopathy: None. IMPRESSION: No mammographic evidence of malignancy. Annual screening is recommended unless otherwise clinically indicated. ASSESSMENT: BI-RADS Category 1: Negative.
--- OUTSIDE RECORDS SUMMARY | 2024-10-10 12:46 | XMS_ITS | Patient Health Record ---
Author Organization [facility] Address [address] [facility] [place] [address] Care Team Providers Care Etiologist Name Role Phone Jennifer Cruz Primary Care Provider Allergies Allergen (clinical drug ingredient) Drug/Non Drug Allergy documented on EMR Reaction Allergy Type Onset Date Status acetaminophen / oxycodone Percocet Unknown Drug Allergy Active codeine Codeine Unknown Drug Allergy Active ibuprofen Ibuprofen Unknown Drug Allergy Active Reason For Referral No Information Problems Problem Type SNOMED Code ICD Code Onset Dates Problem Status W/U Status Risk Notes Problem Alcohol dependence (26439909) Uncomplicated alcohol dependence (F10.20) Active confirmed Problem Opioid dependence (61718952) Uncomplicated opioid dependence (F11.20) Active confirmed Plan Of Treatment No Information Insurance Providers Payer Name Payer Address Payer Phone Subscriber Number Group Number Insured Name Patient Relationship to Insured Coverage Start Date Coverage End Date [facility] [address] [address] [place] [phone] [id number] Mariama Pantoja Self - patient is the insured 4 Medical (General) History Surgical History Surgery Date(Month/Year) rt kidney blood clot tubal hysterectomy nasal septum sx broke neck
--- OUTSIDE RECORDS SUMMARY | 2024-10-10 12:46 | XMS_ITS | Patient Health Record ---
[facility] Address [address] [facility] [address] [place] [phone] Care Team Providers Care Jumpbasting Armhole Baster Name Role Phone Beba Lam Primary Care Provider Ivana Romana Unavailable [phone] Allergies Allergen (clinical drug ingredient) Drug/Non Drug [...] 201 Performing Lab: Notes/Report: Test performed by [employer] [facility] , [address], [place] [address] Jayden Stone MD, Manager Distribution CLIA: [id number] Cholesterol 220 <200 mg/dL Triglycerides 201 <150 [...] Results: 87 Units: mg/dL % Change: - CBC Fingerstick (in house) Reviewed date:03/19/2024 10:15:38 AM Interpretation: Performing Lab: Notes/Report: wbc 9.9 3.5 - 10 lym 42.0% 15 - 50 mid 7.3% 2 - 15 gran 50.7% 35 - 80 rbc 4.94 3.5 - 5.5 hgb 15.2 11.5 - 16.5 hct 45.3 35 - 55 mcv 91.7 75 - 100 mch 30.7 25 - 35 mchc 33.5 31 - 38 plat 235 100 - 400 Reason For Referral No Information Medications Medication SIG (Take, Route, Frequency, Duration) Notes Start Date End Date Status Rosuvastatin Calcium 20 MG TAKE 1 TABLET BY MOUTH EVERY DAY; Duration: 90 Active QUEtiapine Fumarate 200 MG TAKE 1 TABLET BY MOUTH AT BEDTIME; Duration: 90 Active Losartan Potassium 25 MG TAKE 1 TABLET B Y MOUTH EVERY DAY; Duration: 90 Active Venlafaxine HCl 75 MG 1 tablet with food Orally Twice a day; Duration: 30 days Active Aspirin 81 MG 1 tablet Orally Once a day Active rOPINIRole HCl 2 MG TAKE 1 TABLET BY DEVON EVERY DAY; Duration: 90 Active Loratadine 10 MG 1 tablet Orally [...] (in the evening); Duration: 30 day(s) Not-Taking ALPRAZolam 1 MG 1/2 tab by mouth in the morning, 1/2 tab in the afternoon, and 1 tab at bedtime Orally as directed; Duration: 30 day(s) 09/24/2024 Active Fluticasone Propionate 50 MCG/ACT 1 spray in each nostril Nasally Twice a day; Duration: 30 days 08/26/2024 Active Immunizations Vaccine Route Administration Date Status Comme nts Hepatitis A (adult) Unknown 11/27/2017 Administered Hepatitis A (adult) Unknown 10/03/2018 Administered Tetanus Tdap-Adacel (over 7yrs) Unknown 01/02/2021 Administered Zostavax IM Intramuscular 2018 Administered Zostavax Unknown 03/04/2019 Administered Problems Problem Type SNOMED Code ICD Code Onset Dates Problem Status W/U Status Risk Notes Problem Hyperglycemia (24045837) Hyperglycemia (R73.9) Active confirmed Problem Essential hypertension (57129034) Essential hypertension (I10) Active confirmed Problem Restless legs syndrome (83109654) Restless leg syndrome (G25.81) Active confirmed Problem Generalized anxiety disorder (87907095) Generalized anxiety disorder (F41.1) Active confirmed Problem Anxiety disorder (041714594) Anxiety disorder, unspecified (F41.9) Active confirmed Problem Long-term current use of anticoagulant (867737260) skilled nursing (current) use of anticoagulants (Z79.01) Active confirmed Problem Reactive depression (situational) (53960302) Situational depression (F43.21) Active confirmed Problem Sleep disturbance (44863911) Sleep disturbance (G47.9) Active confirmed Problem Gastroesophageal reflux disease (883084454) Gastroesophageal reflux disease, esophagitis presence not specified (K21.9) Active confirmed Problem Insomnia (234582807) Insomnia, unspecified type (G47.00) Active confirmed Problem Hyperlipidaemia (95570287) Hyperlipidemia, unspecified hyperlipidemia type (E78.5) Active confirmed Problem Dyslipidemia (970324445) Dyslipidemia (E78.5) Active confirmed Problem Menopause (003319762) Perimenopausal symptoms (N95.1) Active confirmed Problem Anxiety depression (045738212) Anxiety with depression (F41.8) Active confirmed Problem Fibrocystic breast changes (39120296) Fibrocystic breast disease (FCBD), unspecified laterality (N60.19) Active confirmed Problem Allergic rhinitis (51352458) Acute allergic rhinitis (J30.9) Active confirmed Problem Renal infarct (46365508) Renal infarct (N28.0) Active confirmed Problem Stricture of artery (98264591) 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) Active confirmed Vital Signs Heart Rate 82 /min 08/26/2024 Blood pressure diastolic 90 mm Hg 08/26/2024 Height 65.25 in 08/26/2024 Blood pressure systolic 142 mm Hg 08/26/2024 Weight 138.0 lbs 08/26/2024 BMI 22.79 kg/m2 08/26/2024 Encounters Encounter Location Date Provider [facility] [address], [place] [id number] 03/21/2024 Beba Lam Essential hypertensi on I10 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 Z79.01 [facility] 1210 [facility] [address] [place], [place] [id number] 08/26/2024 Beba Lam Essential hypertensi on I10 ; Anxiety disorder, unspecified F41.9 ; Renal infarct N28.0 ; Acute allergic rhinitis J30.9 ; Dyslipidemia E78.5 and BMI 22.0-22.9, adult Z68.22 [facility] [address] [place], [place] [id number] 03/18/2024 Beba Lam Pharyngitis, unspeci fied etiology J02.9 ; Bronchitis J40 and Essential hypertension I10 [facility] [address] [place], [place] [id number] 11/06/2023 Beba Lam [facility] [address] [place], [place] [id number] 11/06/2023 Beba Lam [facility] [address] [place], [place] [id number] 12/21/2023 Romana Heath [facility] [address] [place], [place] [id number] 05/20/2024 Beba Lam [facility] [address] [place], [place] [id number] 05/27/2024 Beba Lam [facility] [address] [place], [place] [id number] 07/10/2024 Beba Lam [facility] [address] [place], [place] [id number] 07/30/2024 Beba Lam [facility] [address] [place], [place] [id number] 09/10/2024 Beba Lam Screening for breast cancer Z12.39 [facility] [address] [place], [place] [id number] 09/23/2024 Beba Lam [facility] [address] [place], [place] [id number] 09/27/2024 Beba Lam Assessments Encounter Date Diagnosis (ICD Code) Assessment Notes Treatment Notes Treatment Clinical Notes Section Notes 03/18/2024 Bronchitis (ICD-10 - J40) 03/18/2024 Pharyngitis, unspecified etiology (ICD-10 - J02.9) 03/21/2024 Essential hypertension (ICD-10 - I10) To ER for evaluation 03/21/2024 exterminator helper (current) use of anticoagulants (ICD-10 - Z79.01) 08/26/2024 Essential hypertension (ICD-10 - I10) 08/26/2024 Anxiety disorder, unspecified (ICD-10 - F41.9) 09/10/2024 Screening for breast cancer (ICD-10 - Z12.39) 08/26/2024 Renal infarct (ICD-10 - N28.0) 03/18/2024 Essential hypertension (ICD-10 - I10) 08/26/2024 Acute allergic rhinitis (ICD-10 - J30.9) 08/26/2024 Dyslipidemia (ICD-10 - E78.5) 08/26/2024 BMI 22.0-22.9, adult (ICD-10 - Z68.22) Plan Of Treatment Pending Test Test Name Order Date Mammogram 09/10/2024 Next Appt Details Provider Name:Beba Fontanezsanthosh er, 10/10/2024 02:15:00 PM, [address], [place], [place], [id number], Insurance Providers Payer Name Payer Address Payer Phone Subscriber Number Group Number Insured Name Patient Relationship to Insured Coverage Start Date Coverage End Date [facility] [employer] [address] [place] [address] [id number] FROYLAN DAMICO Self - patient is the insured Medications Administered Medication Instructions Date of Administration Dosage Notes Dexamethasone 12/19/2016 1 mL Dexamethasone 06/27/2023 1 mL vitamin K 03/08/2021 5 mg Medical (General) History Medical History History ICD Code hypertension, ECHO and stress test in 17 asthma allergic rhinitis Restless Leg Syndrome 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 Richardson 10/2023 Hospitalization History Reason Date(Month/Year) above surgeries
--- OUTSIDE RECORDS SUMMARY | 2024-10-10 12:47 | XMS_ITS | Encounter Summary ---
[facility] Address [address] [place] [address] Care Team Providers Care Assistant Professor Of Radiology Name Role Phone Chetna Dallas PA-C Primary Care Provider Reason for Visit * Reason Comments Med Refill Encounter Details Date Type Department Care Team (Late st Contact Info) Description 05/07/[address] [facility] [address] [place] [address] Ping Martin PA-C Social History Tobacco Use Types Packs/Day Years Used Date Smoking Tobacco: Former Cigarettes 0.5 5 0 02/27/2006 - 02/27/2011 Smokeless Tobacco: Never Alcohol Use Standard Drinks/Week Comments Yes 2 (1 standard drink = 0.6 oz [...] Feels Unsafe at Home or Work/School no 12/29/2021 Feels Threatened by Someone no 03/2021 Does Anyone Try to Keep You From Having Contact with Others or Doing Things Outside Your Home? no 12/29/2021 Physical Signs of Abuse Present no 12/29/2021 Housing Stability Answer Date Recorded Current Living Arrangements home 03/2021 Potentially Unsafe Housing Conditions Not on grazyna e 12/29/2021 Disabilities Answer Date Recorded Difficulty Concentrating, Remembering or Making Decisions no 12/29/2021 Difficulty Managing Errands Independently no 12/29/2021 Education Answer Date Recorded Help with school or training? Not on file Preferred Language Cook Islander 12/23/2021 Comments No Sex and Gender Information Value Date Recorded Sex Assigned at Female 08/22/2024 1:57 PM EDT Legal Sex Female 11:25 AM EDT Gender Identity Not on file Sexual Orientation Straight 08/22/2024 1: 57 PM EDT documented as of this encounter Plan of Treatment Upcoming Encounters Date Type Department Care Team (Late st Contact Info) Description 12/18/2024 11:15 AM EDT Office Visit [facility] NEUROSURGERY [address] [phone] Chetna Dallas PA-C [address] [address] documented as of this encounter Visit Diagnoses Not on filedocumented in this encounter Care Teams Assistant Professor Of Radiology Relationship Specialty Start Date End Date Chetna Dallas PA-C [address] [address] PCP - General Physician All Source Analyst 08/23/24 documented as of this encounter
--- OUTSIDE RECORDS SUMMARY | 2024-10-10 12:47 | XMS_ITS | Encounter Summary ---
[facility] Address [address] [place] [address] Care Team Providers Care Temporary Receptionist Name Role Phone Chetna Dallas PA-C Primary Care Provider Reason for Visit * Reason Comments Med Refill Encounter Details Date Type Department Care Team (Late st Contact Info) Description 01/12/2024 Refill [facility] [address] [facility] [address] [place] [phone] Catrachita Rosa PA-C 1760 [facility] [address] [place] [address] Social History Tobacco Use Types Packs/Day [...] or training? Not on file Preferred Language Bhutanese 10/23/2023 Comments No Sex and Gender Information Value Date Recorded Sex Assigned at Female 08/22/2024 1:57 PM EDT Legal Sex Female 11:25 AM EDT Gender Identity Not on file Sexual Orientation Straight 08/22/2024 1: 57 PM EDT documented as of this encounter Plan of Treatment Upcoming Encounters Date Type Department Care Team (Late st Contact Info) Description 12/18/2024 11:15 AM EDT Office Visit [facility] [address] [phone] Chetna Dallas PA-C 1760 [place] [address] documented as of this encounter Visit Diagnoses Not on filedocumented in this encounter Care Teams Temporary Receptionist Relationship Specialty Start Date End Date Chetna Dallas PA-C [address] [address] PCP - General Physician Key Worker 08/23/24 documented as of this encounter
== END 2024-10-10 23:59 | disposition home or self-care (01) ==
LOC: RAD 12:42
PROVIDERS: PCP Family Medicine; Visit Provider Family Medicine
DX: Z12.31 Encounter for screening mammogram for malignant neoplasm of breast (principal); R92.323 Mammographic fibroglandular density, bilateral breasts
CPT/HCPCS: 77063; 77067

== ENCOUNTER 2024-11-26 14:57 | Outpatient (CLI) | payer OTHER, SELFPAY ==
--- OUTSIDE RECORDS SUMMARY | 2024-08-26 09:15 | XMS_ITS ---
Author Organization [facility] Address [address] [place] [phone] Care Team Providers Care Cartographic Aide Name Role Phone Beba Lam Primary Care [...] Interpretation:chol 220, trigs 201 Performing Lab: Notes/Report: CLIA: [id number] Jayden Stone MD, Resident Care Director [facility] , [address], [place] [address] Test performed by [employer], [employer] Cholesterol 220 <200 mg/dL Triglycerides 201 <150 [...] W/U Status Risk Notes Problem Allergic rhinitis (66465028) Acute allergic rhinitis (J30.9) Active confirmed Problem Dyslipidemia (089081261) Dyslipidemia (E78.5) Active confirmed Vital Signs Weight 138.0 lbs 08/26/2024 Blood pressure systolic 142 mm Hg 08/27/19 25 Blood pressure diastolic 90 mm Hg 025 Heart Rate 82 /min 08/26/2024 Height 65.25 in 08/26/2024 BMI 22.79 kg/m2 08/26/2024 Encounters Encounter Location Date Provider Diagnosis [facility] [facility] [address] [phone] 08/26/2024 Beba Lam Essential hypertensi on I10 [...] [address], [place], [place], [phone], Progress Notes * SHAMIKA DAMICOJOSHDOB: [birth year] (54 yo F)Acc No.[id number]:08/26/2024 Progress Notes Patient: FROYLAN WILLIS Provider: Beba Lam M.D. :1970 A ge:53 Y S ex:Female Date:08/26/2024 Address:[place], [id number] Subjective: * Chief Complaints: * 1 . 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 B [place] 22.0-22.9, adult - Z68.22 Plan: * Treatment: [...] * Images: Billing Information: * Visit Code: 64937 Office Visit, Est Pt., Level 4. * Procedure Codes: 90314 CBC WITH AUTO DIFF. 1036F TOBACCO NON-USER. G8420 BMI<30 AND >=22 CALC & DOCU. G8950 PREHTN/HTN BP DOC INDCD F/U DOC. G8753 MOST RECENT SYSTOLIC BP >= 140MM HG. G8755 MOST RECENT DIASTOLIC BP >= 90MM HG. * Electronic signature of Beba Lam MD on 11/26/2024 at 03:00 PM EDT Sign off status: Pending * Provider: Beba Lam M.D. Date: 0 08/26/2024 Generated for Dulce Maria lowry/Apolinar/Ron on: 0 11/26/2024 03:00 PM EDT History and Physical Notes * [...]
--- OUTSIDE RECORDS SUMMARY | 2024-10-10 10:15 | XMS_ITS ---
Author Organization [facility] Address [address] [place] [id number] Care Team Providers Care Pediatrics Hospitalist Name Role Phone Beba Lam Primary Care Provider [phone] Allergies Allergen (clinical drug ingredient) Drug/Non Drug Allergy documented on EMR Reaction Allergy Type Onset Date Status gadobenate Gadobenate Unknown Drug Allergy Activ e morphine Morphine Unknown Drug Allergy Active Results Component Value Reference Range Notes P-Basic Metabolic Panel (BMP ) Reviewed date:10/24/2024 09:04:59 AM Interpretation:Normal Performing Lab: Notes/Report: CLIA: [id number] Jayden Stone MD, Health Navigator [address] [place] [address] [place] [address] Test performed by [facility] [employer] Sodium 141 135-145 mmol/L Potassium 4.5 3.5-5.3 mmol/L Chloride 103 97-108 mmol/L CO2 25 20-32 mmol/L Glucose 102 65-99 mg/dL BUN 9 6-20 mg/dL Creatinine 0.64 0.50-1.00 mg/dL Calcium 9.4 8.6-10.4 mg/dL eGFR by Creatinine 104 >59 mL/min/1.73m2 P-Sed Rate (ESR) Reviewed date:10/24/2024 09:04:59 AM Interpretation:Normal Performing Lab: Notes/Report: Test performed by [facility] [address] [place] [address] [place] [address] Jayden Stone MD, Health Navigator CLIA: [id number] Erythrocyte Sedimentation Rate (ESR), Automated 4 <31 mm/hr P-Factor V Leiden Genotyping Reviewed date:10/24/2024 09:04:59 AM Interpretation:Negative Performing Lab: Notes/Report: Test performed by [facility] [address] [place] [address] , [address], [place] [address] Jayden Stone MD, Health Navigator CLIA: [id number] Factor V Mutation NEGATIVE NEGATIVE Factor V Normal Allele (G1691): Present Factor V Mutant Allele (A1691): Not Present Interpretation: This patient is normal (no mutation observed) with respect to the Factor V (Leiden) W8989N mutation. Method: Genomic DNA was isolated from the patient specimen and used in PCR with a Taqman genotyping assay designed to identify the Factor V Leiden mutation ([id number], Transcript NM_000130.4: c.1601G>A, p.Pag155Uab). Diagnostic errors can occur due to rare DNA sequence variants that may interfere with the assay. The results of this test should be interpreted in the context of other clinical or laboratory findings. This test was developed and its performance characteristics determined by [facility]. It has not been cleared or approved by the U.S. Food and Drug Administration. The FDA has determined that such clearance or approval is not necessary. This test is used for clinical purposes. It should not be regarded as investigational or for research. This laboratory is certified under the Clinical Laboratory Improvement Amendments of 1988 (CLIA-88) as qualified to perform high complexity clinical laboratory testing. Clinical Utility: The Factor V Leiden (N0692Z) mutation is presented in 45% of familial thrombophilia and is the most common genetic risk factor identified in the patients with deep vein thrombosis. Individuals who are heterozygous for the Factor V Leiden mutation have a 5-10 fold increased risk of venous thrombosis, while homozygous individuals have a 50-100 fold increased risk of venous thrombosis. Test performed by [facility], [facility] d/b/a [facility] , [place] [address], Guero Sampson DO, Health Navigator, CLIA# [id number] P-Vitamin D 1,25-Dihydroxy a nd 25-Hydroxy Reviewed date:10/24/2024 09:04:59 AM Interpretation:37 Performing Lab: Notes/Report: Test performed by [facility] [address] [place] [address] , [address], [place] [address] Jayden Stone MD, Health Navigator CLIA: [id number] Vitamin D 25-Hydroxy 37.0 30.0-100.0 ng/mL Interpretation of Vitamin D 25 OH: < 20 ng/mL - Deficiency 20 - 29 ng/mL - Insufficiency 30 - 100 ng/mL - Sufficiency > 100 ng/mL - Super-therapeutic- toxicity may occur above this level. Clinical correlation required. Vitamin D, 1, 25 Dihydroxy 61.0 19.9-79.3 pg/m L Reason For Referral Reason allergic/rhinitis Diagnosis 1 Acute allergic rhini tis (J30.9) Referral Organization [facility] Referring Provider First Name Beba Howard Referring Provider Last Name Genaro Referring Provider Speciality Family Pra ctice Referred Provider Specialty Allergy/Immu nology General Notes Anastasia Baca 2024 03:13:00 PM > faxed to [facility] Referral Priority Routine REASON FOR VISIT 6 weeks, Needs mammogram Medications Medication SIG (Take, Route, Frequency, Duration) Notes Start Date End Date Status Aspirin 81 MG 1 tablet Orally Once a day Not-Taking ALPRAZolam 1 MG 1/2 tab by mouth in the morning, 1/2 tab in the afternoon, and 1 tab at bedtime Orally as directed; Duration: 30 day(s) 09/24/2024 Active Loratadine 10 MG 1 tablet Orally Once a day; Duration: 30 day(s) Not-Taking Xarelto 20 MG 1 tab(s) orally once a day (in the evening); Duration: 30 day(s) Active Montelukast Sodium 10 MG 1 tablet Orally Once a day; Duration: 30 days 10/10/2024 Active Losartan Potassium 25 MG TAKE 1 TABLET B Y MOUTH EVERY DAY; Duration: 90 Active Venlafaxine HCl 75 MG 1 tablet with food Orally Twice a day; Duration: 30 days Active QUEtiapine Fumarate 200 MG TAKE 1 TABLET BY MOUTH AT BEDTIME; Duration: 90 Active Rosuvastatin Calcium 20 MG TAKE 1 TABLET BY MOUTH EVERY DAY; Duration: 90 Active Fluticasone Propionate 50 MCG/ACT 1 spray in each nostril Nasally Twice a day; Duration: 30 days 08/26/2024 Active Danette Allergy 180 MG 1 tablet Swallow whole with water; do not take with fruit juices. Orally Once a day Active Bisoprolol-hydroCHLOROthi azide 10-6.25 MG 1 tab(s) orally once a day; Duration: 30 day(s) Active rOPINIRole HCl 2 MG TAKE 1 TABLET BY EVERY DAY; Duration: 90 Active Problems Problem Type SNOMED Code ICD Code Onset Dates Problem Status W/U Status Risk Notes Problem Vitamin D deficiency (34727472) Vitamin D deficiency (E55.9) Active confirmed Vital Signs Weight 138.4 lbs 10/10/2024 Blood pressure systolic 130 mm Hg 10/11/19 25 Blood pressure diastolic 90 mm Hg 025 Heart Rate 74 /min 10/10/2024 Height 65.25 in 10/10/2024 BMI 22.85 kg/m2 10/10/2024 Encounters Encounter Location Date Provider Diagnosis [facility] [address] [phone] 10/10/2024 Beba Lam Essential hypertensi on I10 ; Situational depression F43.21 ; Renal infarct N28.0 ; 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 ; Acute allergic rhinitis J30.9 ; Vitamin D deficiency E55.9 and BMI 22.0-22.9, adult Z68.22 Assessments Encounter Date Diagnosis (ICD Code) Assessment Notes Treatment Notes Treatment Clinical Notes Section Notes 10/10/2024 Essential hypertension (ICD-10 - I10) 10/10/2024 Situational depression (ICD-10 - F43.21) 10/10/2024 Renal infarct (ICD-10 - N28.0) 10/10/2024 group home (current) use of anticoagulants (ICD-10 - Z79.01) 10/10/2024 Acute allergic rhinitis (ICD-10 - J30.9) 10/10/2024 Vitamin D deficiency (ICD-10 - E55.9) 10/10/2024 BMI 22.0-22.9, adult (ICD-10 - Z68.22) Plan Of Treatment Medication Medication Name Sig Start Date Stop Date Notes Montelukast Sodium 10 MG 1 tablet Orally Once a day; Duration: 30 days 10/10/2024 Referrals Referral Date Details 10/10/2024 10/10/2024, allergic /rhinitis Next Appt Details Follow Up: 3 Months, Reason: Provider Name:Beba Singleton er, 02/03/2025 01:00:00 PM, [address], [address], [place], [place], [phone], Progress Notes * FROYLAN DAMICODOB: [birth year] (54 yo F)Acc No.[id number]:10/10/2024 Progress Notes Patient: FROYLAN WILLIS Provider: Beba Lam M.D. :1970 A ge:53 Y S ex:Female Date:10/10/2024 Address:[place], [id number] Subjective: * Chief Complaints: * 1 . 6 weeks. 2. Needs mammogram. * HPI: C ardiology: The pt is here for a check up on Hypertension. Pt started Losartan at her last visit and pt denies any side effects. A llergy/Asthma: Was on Dupixant per Dr. Brewster and took Montelucast. Asks about Fasenra injections. history of nasal polyp surgery. * ROS: D ERMATOLOGY: no R donnell. n o H sabrina. G ASTROENTEROLOGY: no N ausea. n o V omiting. n o D iarrhea.? U ROLOGY: no D ifficulty urinating. n o B lood in urine. 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 Alcohol: No. * Medications: T bubba Samaniego Allergy 180 MG Tablet 1 tablet Swallow whole with water; do not take with fruit juices. Orally Once a day , Taking Bisoprolol-hydroCHLOROthiazide 10- 6.25 MG Tablet 1 tab(s) orally once a day , Taking rOPINIRole HCl 2 MG Tablet TAKE 1 TABLET BY MOUTH EVERY DAY , Taking Fluticasone Propionate 50 MCG/ACT Suspension 1 spray in each nostril Nasally Twice a day , Taking Rosuvastatin Calcium 20 MG Tablet TAKE 1 TABLET BY MOUTH EVERY DAY , Taking QUEtiapine Fumarate 200 MG Tablet TAKE 1 TABLET BY MOUTH AT BEDTIME , Taking Venlafaxine HCl 75 MG Tablet 1 tablet with food Orally Twice a day , Taking Losartan Potassium 25 MG Tablet TAKE 1 TABLET BY MOUTH EVERY DAY , Taking ALPRAZolam 1 MG Tablet 1/2 tab by mouth in the morning, 1/2 tab in the afternoon, and 1 tab at bedtime Orally as directed , Taking Xarelto 20 MG Tablet 1 tab(s) orally once a day (in the evening) , Not-Taking Aspirin 81 MG Tablet Chewable 1 tablet Orally Once a day , Not-Taking Loratadine 10 MG Tablet 1 tablet Orally Once a day , Medication List reviewed and reconciled with the patient * Allergies: M orphine, Gadobenate. Objective: * Vitals: W t: 138.4, Temp: 98.1, BP: 130/90, HR: 74, O2 Sat: 99% on RA, Nurse: LANIE, Ht: 65.25, BMI:22.85. * Examination: G eneral Examination: General Appearance: [...] ssential hypertension - I10 (Primary) 2 . S ituational depression - F43.21 3 . R enal infarct - N28.0 4 . L junito term (current) use of anticoagulants - Z79.01 5 . A cute allergic rhinitis - J30.9 6. V itamin D deficiency - E55.9 7 . B PR 22.0-22.9, adult - Z68.22 ? Plan: * Treatment: Value Reference Range B UN 9 6-20 - mg/dL * C alcium 9.4 8.6-10.4 - mg/dL * C hloride 103 97-108 - mmol/L * C O2 25 20-32 - mmol/L * C reatinine 0.64 0.50-1.00 - mg/dL * G lucose 102 H 65-99 - mg/dL * P otassium 4.5 3.5-5.3 - mmol/L * S odium 141 135-145 - mmol/L * e GFR by Creatinine 104 >59 - mL/min/1.73m2 * Ruth Ann Britt 10/24/2024 09:0 4:54 AM EDT > See phone encounter ?LAB: P-Sed Rate (ESR) (Collection Date & Time - 10/10/2024 02:06 PM)?Normal * Value Reference Range E rythrocyte Sedimentation Rate (ESR), Automated 4 <31 - mm/hr * Ruth Ann Britt 10/24/2024 09:0 4:54 AM EDT > See phone encounter ?LAB: P-Factor V Leiden Genotyping (Collection Date & Time - 10/10/2024 02:06 PM)?Negative* Value Reference Range F actor V Mutation NEGATIVE NEGATIVE - * Ruth Ann Britt 10/24/2024 09:0 4:54 AM EDT > See phone encounter ?LAB: P-Vitamin D 1,25-Dihydroxy and 25-Hydroxy (Collection Date & Time - 10/10/2024 02:06 PM)?37* Value Reference Range V itamin D 25-Hydroxy 37.0 30.0-100.0 - ng/mL * V itamin D, 1, 25 Dihydroxy 61.0 19.9-79.3 - pg /mL * Ruth Ann Britt 10/24/2024 09:0 4:54 AM EDT > See phone encounter 2.?Acute allergic rhinitis? Start Montelukast Sodium Tablet, 10 MG, 1 tablet, Orally, Once a day, 30 days, 30, Refills 5.? Referral To:Allergy/Immunology ?Reason:allergic/rhinitis * Procedure Codes: 1 036F TOBACCO NON-USER, 3075F SYST BP GE 130 - 139MM HG, 3080F DIAST BP = 90 MM HG * Follow Up: 3 Months * Images: Billing Information: * Visit Code: 29910 Office Visit, Est Pt., Level 4. * Procedure Codes: 1036F TOBACCO NON-USER. 3075F SYST BP GE 130 - 139MM HG. 3080F DIAST BP = 90 MM HG. * Electronic signature of Beba Lam MD on 11/26/2024 at 03:00 PM EDT Sign off status: Pending * Provider: Beba Lam M.D. Date: 0 10/10/2024 Generated for Darriusi alen/Apolinar/eTransmitting on: 0 11/26/2024 03:00 PM EDT History and Physical Notes * Examination Category Sub-Category Detail Notes Category Not es General Examination HEENT: TM's normal Heart: RSR, 132/92 Lungs: clear to auscultatio n Extremities: no leg edema General Appearance: NAD, hoarse Skin: normal, no rash Neurologic Exam: Intact, gait normal Neck: supple, no lymphaden opathy. Surgical scar Oral cavity: some erythema at ton silar areas. Peripheral pulses: normal Chest: normal shape and exp ansion Consultation Request Notes Referral Date Referring Provider Referred Provider Not es 10/10/2024 Beba Lam , allergic/rhett da silva
--- OUTSIDE RECORDS SUMMARY | 2024-11-01 05:00 | XMS_ITS ---
Author Organization [facility] Address 1210 [facility] 36 [facility] [address] [place] [id number] Care Team Providers Care Board Certified Behavioral Analyst Name Role Phone Beba Lam Primary Care Provider [phone] Romana Heath [phone] Allergies Allergen (clinical drug ingredient) Drug/Non Drug Allergy documented on EMR Reaction Allergy Type Onset Date Status gadobenate Gadobenate Unknown Drug Allergy Activ e morphine Morphine Unknown Drug Allergy Active REASON FOR VISIT sinus infection Encounters Encounter Location Date Provider Diagnosis [facility] [address] [place] [id number] 11/01/2024 Romana Heath Plan Of Treatment Next Appt Details Provider Name:Beba Singleton er, 02/03/2025 01:00:00 PM, 1210 [facility] 36 [facility], [address], [place], [place], [phone], Progress Notes * FROYLAN DAMICODOB: [birth year] (54 yo F)Acc No.[id number]:11/01/2024 Progress Notes Patient: FROYLAN WILLIS Provider: EDU Hernandez :1970 A ge:53 Y S ex:Female Date:11/01/2024 Address:[place], [id number] Pcp:Beba Lam Subjective: * Chief Complaints: * [...] Allergic rhinitis, Restless Leg Syndrome, Esophageal reflux, 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
--- OUTSIDE RECORDS SUMMARY | 2024-11-25 11:08 | XMS_ITS | Encounter Summary ---
Author Organization [facility] Address [address] [place] [address] Care Team Providers Care Shoe Folder Name Role Phone Dallas Lam MD Primary Care Provider [phone] [phone] Reason for Visit * Diagnostic Imaging (Emergency) - Closed Specialty Diagnoses / Procedures Referred By Shane glez Referred To Contact Radiology Diagnoses Cervical spondylosis with myelopathy S/P cervical spinal fusion Procedures XR Spine Cervical 2 View Celena, Chetna Rob PA-C [address] [address] Phone: tel: fax: Referral ID Status Reason Start Date Expiration Date Visits Re quested Visits Authorized [id number] Closed 08/23/2024 11/22/2025 1 1 Encounter Details Date Type Department Care Team (Latest Contact Info) Description 11/25/2024 11:08 AM EDT - 11/25/2024 11:59 PM EDT Hospital Encounter [facility] XRAY [address] [place] [phone] Arrived Discharge Disposition: Home or Self Care [...] or training? Not on file Preferred Language Zimbabwean 10/23/2023 Comments No Sex and Gender Information [...] Description 12/18/2024 11:00 AM EDT Office Visit [facility] NEUR[facility] 1760 [facility] [address] [place] [address] Apro, Chetna Rob PA-C 1760 [facility] 301 [place] [address] documented as of this encounter Goals Goal [...] MD 11/25/2024 12:01 PM EDT Workstation ID: [id number] Narrative 11/25/2024 12:01 PM EDT XR SPINE [...] MD 11/25/2024 12:01 PM EDT Workstation ID: [id number] [facility] Celena PA-C IMG DIAGNOSTIC IMAGING ORDERABLES Final Result documented in this encounter Visit Diagnoses Not on filedocumented in this encounter Additional Health Concerns Active Problems Noted Date Diagnosed Date Autogenerated Problem 08/30/2024 documented as of this encounter Care Teams Shoe Folder Relationship Specialty Start Date End Date Dallas Lam MD [facility]0 [facility] [address] [facility] [address] [place] [address] PCP - General Family Medicine 11/25/24 documented as of this encounter
--- OUTSIDE RECORDS SUMMARY | 2024-11-26 15:01 | XMS_ITS | Encounter Summary ---
Author Organization [facility] Address [address] [place] [id number] Care Team Providers Care Head Of Drama Name Role Phone Chetna Dallas PA-C Primary Care Provider Reason for Visit * Reason Comments Med Refill Encounter Details Date Type Department Care Team (Late st Contact Info) Description 10/28/2024 Refill [facility] NEUROSURGERY [address] [address] Chetna Dallas PA-C [address] [place], [place] [id number] Social History Tobacco Use Types Packs/Day Years [...] or training? Not on file Preferred Language Emirati 10/23/2023 Comments No Sex and Gender Information Value Date Recorded Sex Assigned at Female 08/22/2024 1:57 PM EDT Legal Sex Female 11:25 AM EDT Gender Identity Not on file Sexual Orientation Straight 08/22/2024 1: 57 PM EDT documented as of this encounter Plan of Treatment Upcoming Encounters Date Type Department Care Team (Late st Contact Info) Description 12/18/2024 11:00 AM EDT Office Visit [facility] NEUROS[facility]ERY [address]60 [facility] [address] [place] [address] Chetna Dallas PA-C [address] [address] documented as of this encounter Goals Goal Patient Goal Type Associated Problems Recent Progress Patient-Stated? Author Autogenerat ed Goal Care Plan Autogenerated Problem No Abilio Leon MD documented as of this encounter Visit Diagnoses Not on filedocumented in this encounter Additional Health Concerns Active Problems Noted Date Diagnosed Date Autogenerated Problem 08/30/2024 documented as of this encounter Care Teams Head Of Drama Relationship Specialty Start Date End Date Chetna Dallas PA-C 1760 [facility] 301 [place] [address] PCP - General Physician Education Liaison 08/23/24 11/24/24 documented as of this encounter
--- OUTSIDE RECORDS SUMMARY | 2024-11-26 15:01 | XMS_ITS | Clinical Summary ---
Author Organization [facility] Address [address] [place] [address] Care Team Providers Care Community Health Nurse Staff Name Role Phone Dallas Lam MD Primary Care Provider [phone] [phone] Allergies Active Allergy Reactions Criticality Noted Date [...] tablet Take 1 tablet by mouth Daily. 11/25/20 22 Active Xarelto 20 MG tablet Take [...] NEEDED FOR MUSCLE SPASMS. 45 capsule 1 10/30/19 25 Active TiZANidine (ZANAFLEX) 4 MG capsule TAKE 1 CAPSULE BY MOUTH 3 (THREE) TIMES A DAY NEEDED FOR MUSCLE SPASMS. 45 capsule 1 09/24/19 25 025 Discontinued Active Problems Problem Noted [...] (12/09/2021): Added automatically from request for surgery [id number] Encounters Date Type Department Care Team Description 11/25/2024 11:08 AM EDT - 11/25/2024 11:59 PM EDT Hospital Encounter [facility] XRAY [address] [facility] [place] [address] Arrived Discharge Disposition: Home or Self Care 11/25/2024 Travel 10/28/2024 Refill [facility] NEUROSURGERY [address] [place] [phone] Chetna Dallas PA-C 09/23/2024 Refill [facility] NEUROSUR[facility]ERY [address] [place] [address] Chetna Dallas PA-C from Last 3 Months Family History Medical History Relation Name Comments Arthritis Father Jose Luis alfonso Asthma Father Jose Luis alfonso COPD Father Jose Luis alfonso Cancer Father Jose Luis alfonso Diabetes Father Jose Luisgordon alfonso Heart disease Father Jose Luisgordon alfonso Hyperlipidemia Father Jose Luis alfonso Hypertension Father Jose Luis alfonso Vision [...] or training? Not on file Preferred Language Argentine 10/23/2023 Comments No Sex and Gender Information [...] Description 12/18/2024 11:00 AM EDT Office Visit [facility] NEUROSUR[facility]ERY [address] [phone] Chetna Dallas PA-C [address] [facility] 301 [place] [address] Health Maintenance Due Date Last Done Comments [...] C SCREENING 07/21/2021 LIPID PANEL 07/21/2022 07/21/2021 INFLUENZA VACCINE 09/27/2024 TDAP/TD VACCINES (2 - Td or Tdap) 01/02/2031 021 ZOSTER VACCINE Completed 03/02/2019, 2018 Goals Goal Patient Goal Type Associated Problems Recent Progress Patient-Stated? Author Autogenerat ed Goal Care Plan Autogenerated Problem No Abilio Leon MD Medical Devices Implanted Type Area Set Builder Device Identifier Shelf Expiration Date Model / Serial / Lot Loop Recorder Implant Dev Cls Wnd Vloc/Pbt Melissa Nonabs 1/2cir Sz2/0 26mm 30cm Kalia - [id number] Implanted:Qt y: 3 on 12/29/2021 by Luis Bowen MD at [facility] Implant N/A: Stomach COVIDIEN 05/27/2024 [id number] / / [id number] Dev Cls Wnd Vloc/Pbt Melissa Nonabs /2cir Sz2/0 26mm 15cm Kalia - [id number] Implanted:Qt y: 1 on 12/29/2021 by Luis Bowen MD at [facility] Implant N/A: Abdomen COVIDIEN 05/27/2024 [id number] / / [id number] Bone Lordotic Asr 5x38f18 Fzd - [id number] - [id number] Implanted:Qt y: 1 on 11/03/2023 by Abilio Leon MD at [facility] Implant N/A: Spine Cervical [employer] A [employer] 02/16/2026 [id number] / [id number] / [id number] Plt Acp Zevo 91deq1aa Ns - [id number] Implanted:Qt y: 1 on 11/03/2023 by Abilio Leon MD at [facility] Implant N/A: Spine Cervical [employer] [id number] / / NA Scrw St Zevo 2thrd S/Tap 3.5x13mm - [id number] Implanted:Qt y: 6 on 11/03/2023 by Abilio Leon MD at [facility] Implant N/A: Spine Cervical [employer] [id number] / / NA Clip Ligat Vasc Horizon Ti Sm Yel 6ct - [id number] Implanted:Qt y: 1 on 11/03/2023 by Abilio Leon MD at [facility] Implant N/A: Spine Cervical [employer] 12/27/2027 [id number] / / [id number] Clip Ligat Vasc Horizon Ti Md Kalia 6ct - [id number] Implanted:Qt y: 1 on 11/03/2023 by Abilio Leon MD at [facility] Implant N/A: Spine Cervical TELE[employer] MEDICAL 07/02/2028 [id number] / / [id number] Hemost Abs Surgifoam Sz100 8x12 10mm - [id number] Implanted:Qt y: 1 on 11/03/2023 by Abilio Leon MD at [facility] Implant N/A: Spine Cervical [employer] J [employer] J [id number] 06/29/2027 [id number] / / [id number] Kt Seal Hemos Abs Floseal Matrx Fast/Prep 10ml - [id number] Implanted:Qt y: 1 on 11/03/2023 by Abilio Leon MD at [facility] Implant N/A: Spine Cervical [facility] [id number] 07/31/2024 [id number] / / [id number] Wax Bone Hemo Lukens Sharpoint 2.5gm Wht - [id number] Implanted:Qt y: 1 on 11/03/2023 by Abilio Leon MD at [facility] Implant N/A: Spine Cervical [employer] MARNI 901 / / Bone Lordotic Asr 2m40x35 Fzd - [id number] - [id number] Implanted:Qt y: 1 on 11/03/2023 by Abilio Leon MD at [facility] Implant N/A: Spine Cervical [employer] A [employer] 04/13/2026 [id number] / [id number] / [id number] Procedures Procedure Name Priority Date/Time Associated Diagnosis [...] MD 11/25/2024 12:01 PM EDT Workstation ID: [id number] Narrative 11/25/2024 12:01 PM EDT XR SPINE [...] MD 11/25/2024 12:01 PM EDT Workstation ID: [id number] Chetna Dallas PA-C IMG DIAGNOSTIC IMAGING ORDERABLES [...] 1:08 PM EDT Performed at: 01 - [address] [id number] School Health Aide: Bonifacio Yates PhD, Phone: [phone] Patient Fasting: N Ping Martin PA-C LAB BLOOD ORDERABLES Final Result [facility] (AMBULAT[facility]) [address] [place] [address], [facility] [address] [place] [address], from Last 3 Months or Most Recently Relevant to Health Maintenance Additional Health Concerns Active Problems Noted Date Diagnosed Date Autogenerated Problem 08/30/2024 Insurance [facility] H[facility] Advance Directives * CPR (Attempt [...] Release to patient: Routine Release Care Teams Community Health Nurse Staff Relationship Specialty Start Date End Date Dallas Lam MD [facility] 36 [facility] 2 [place] [address] PCP - General Family Medicine 11/25/24
--- OUTSIDE RECORDS SUMMARY | 2024-11-26 15:01 | XMS_ITS | Encounter Summary ---
Author Organization [facility] Address [address] [place] [address] Care Team Providers Care Business Process Manager Name Role Phone Dallas Lam MD Primary Care Provider [phone] [phone] Encounter Details Date Type Department Care Team (Latest Contact Info) Description 11/25/2024 Travel Social History Tobacco Use Types Packs/Day [...] or training? Not on file Preferred Language Lithuanian 10/23/2023 Comments No Sex and Gender Information Value Date Recorded Sex Assigned at Female 08/22/2024 1:57 PM EDT Legal Sex Female 11:25 AM EDT Gender Identity Not on file Sexual Orientation Straight 08/22/2024 1: 57 PM EDT documented as of this encounter Plan of Treatment Upcoming Encounters Date Type Department Care Team (Late st Contact Info) Description 12/18/2024 11:00 AM EDT Office Visit [facility] NEUROSUR[facility]ERY [address] [place] [address] Celena, Chetna Rob PA-C [address]60 [facility] [address] [place] [address] documented as of this encounter Goals Goal Patient Goal Type Associated Problems Recent Progress Patient-Stated? Author Autogenerat ed Goal Care Plan Autogenerated Problem No Abilio Leon MD documented as of this encounter Visit Diagnoses Not on filedocumented in this encounter Additional Health Concerns Active Problems Noted Date Diagnosed Date Autogenerated Problem 08/30/2024 documented as of this encounter Care Teams Business Process Manager Relationship Specialty Start Date End Date Dallas Lam MD [address] [place] [facility] [address] [place] [address] PCP - General Family Medicine 11/25/24 documented as of this encounter
--- OUTSIDE RECORDS SUMMARY | 2024-11-26 15:03 | XMS_ITS | Patient Health Record ---
[facility] [address] [facility] [address] [place] [id number] Care Team Providers Care Director Employee Communications Name Role Phone Beba Lam Primary Care Provider [phone] Ivana Romana Unavailable [phone] Allergies Allergen (clinical drug ingredient) Drug/Non Drug [...] 201 Performing Lab: Notes/Report: Test performed by [facility], [employer] [facility] , [address], [place] [address] Jayden [place] MD, Community Engagement Representative CLIA: [id number] Cholesterol 220 <200 mg/dL Triglycerides 201 <150 [...] Results: 87 Units: mg/dL % Change: - P-Basic Metabolic Panel (BMP ) Reviewed date:10/24/2024 09:04:59 AM Interpretation:Normal Performing Lab: Notes/Report: Test performed by [facility], [address] , [address], [place] [address] Jayden Stone MD, Community Engagement Representative CLIA: [id number] Sodium 141 135-145 mmol/L Potassium 4.5 3.5-5.3 mmol/L Chloride 103 97-108 mmol/L CO2 25 20-32 mmol/L Glucose 102 65-99 mg/dL BUN 9 6-20 mg/dL Creatinine 0.64 0.50-1.00 mg/dL Calcium 9.4 8.6-10.4 mg/dL eGFR by Creatinine 104 >59 mL/min/1.73m2 P-Sed Rate (ESR) Reviewed date:10/24/2024 09:04:59 AM Interpretation:Normal Performing Lab: Notes/Report: Test performed by [facility] [address] [place] [address] , [address], [place] [address] Jayden Stone MD, Community Engagement Representative CLIA: [id number] Erythrocyte Sedimentation Rate (ESR), Automated 4 <31 mm/hr P-Factor V Leiden Genotyping Reviewed date:10/24/2024 09:04:59 AM Interpretation:Negative Performing Lab: Notes/Report: Test performed by [facility] [address] [place], [place] [address] , [address], [place] [address] Jayden Stone MD, Community Engagement Representative CLIA: [id number] Factor V Mutation NEGATIVE NEGATIVE Factor V Normal Allele (G1691): Present Factor V Mutant Allele (A1691): Not Present Interpretation: This patient is normal (no mutation observed) with respect to the Factor V (Leiden) D7142H mutation. Method: Genomic DNA was isolated from the patient specimen and used in PCR with a Taqman genotyping assay designed to identify the Factor V Leiden mutation ([id number], Transcript [id number]: c.1601G>A, p.Naj191Rkg). Diagnostic errors can occur due to rare DNA sequence variants that may interfere with the assay. The results of this test should be interpreted in the context of other clinical or laboratory findings. This test was developed and its performance characteristics determined by [facility]. It has not been cleared or approved [...] testing. Clinical Utility: The Factor V Leiden (H9782E) mutation is presented in 45% of familial thrombophilia and is the most common genetic risk factor identified in the patients with deep vein thrombosis. Individuals who are heterozygous for the Factor V Leiden mutation have a 5-10 fold increased risk of venous thrombosis, while homozygous individuals have a 50-100 fold increased risk of venous thrombosis. Test performed by [facility], [facility] d/b/a [address] , [address], [place] [address], Guero Sampson DO, Community Engagement Representative, CLIA# [id number] P-Vitamin D 1,25-Dihydroxy a nd 25-Hydroxy Reviewed date:10/24/2024 09:04:59 AM Interpretation:37 Performing Lab: Notes/Report: Test performed by [facility], [employer] [address] [place] [address] , [address], [place] [address] Jayden Stone MD, Community Engagement Representative CLIA: [id number] Vitamin D 25-Hydroxy 37.0 30.0-100.0 ng/mL Interpretation of Vitamin D 25 OH: < 20 ng/mL - Deficiency 20 - 29 ng/mL - Insufficiency 30 - 100 ng/mL - Sufficiency > 100 ng/mL - Super-therapeutic- toxicity may occur above this level. Clinical correlation required. Vitamin D, 1, 25 Dihydroxy 61.0 19.9-79.3 pg/m L CBC Fingerstick (in house) Reviewed date:03/19/2024 10:15:38 [...] - 38 plat 235 100 - 400 Mammogram Reviewed date:10/22/2024 09:08:57 AM Interpretation:Negative Performing Lab: Notes/Report: Negative result Negative Reason For Referral Reason allergic/rhinitis Diagnosis 1 Acute allergic rhini tis (J30.9) Referral Organization [facility] Referring Provider First Name Beba Howard Referring Provider Last Name Genaor Referring Provider Speciality Family Pra ctice Referred Provider Specialty Allergy/Immu nology General Notes Anastasia Baca 2024 03:13:00 PM > faxed to [facility] Referral Priority Routine Medications Medication SIG (Take, Route, Frequency, Duration) Notes Start Date End Date Status Aspirin 81 MG 1 tablet Orally Once a day Not-Taking ALPRAZolam 1 MG 1/2 tab by mouth in the morning, 1/2 tab in the afternoon, and 1 tab at bedtime Orally as directed; Duration: 30 day(s) 09/24/2024 Active Losartan Potassium 25 MG TAKE 1 TABLET B Y MOUTH EVERY DAY; Duration: 90 Active Venlafaxine HCl 75 MG 1 tablet with food Orally Twice a day; Duration: 30 days Active Danette Allergy 180 MG 1 tablet Swallow whole with water; do not take with fruit juices. Orally Once a day Active Loratadine 10 MG 1 tablet Orally Once a day; Duration: 30 day(s) Not-Taking Montelukast Sodium 10 MG 1 tablet Orally Once a day; Duration: 30 days 10/10/2024 Active Bisoprolol-hydroCHLOROthi azide 10-6.25 MG 1 tab(s) orally once a day; Duration: 30 day(s) Active Xarelto 20 MG 1 tab(s) orally once a day (in the evening); Duration: 30 day(s) Active QUEtiapine Fumarate 200 MG TAKE 1 TABLET BY MOUTH AT BEDTIME; Duration: 90 Active Rosuvastatin Calcium 20 MG TAKE 1 TABLET BY MOUTH EVERY DAY; Duration: 90 Active Fluticasone Propionate 50 MCG/ACT 1 spray in each nostril Nasally Twice a day; Duration: 30 days 08/26/2024 Active rOPINIRole HCl 2 MG TAKE 1 TABLET BY DEVON TH EVERY DAY; Duration: 90 Active Immunizations Vaccine Route Administration Date Status Comme nts Hepatitis A (adult) Unknown 11/27/2017 Administered Hepatitis A (adult) Unknown 10/03/2018 Administered Tetanus Tdap-Adacel (over 7yrs) Unknown 01/02/2021 Administered Zostavax IM Intramuscular 2018 Administered Zostavax Unknown 03/04/2019 Administered Problems Problem Type SNOMED Code ICD Code Onset Dates Problem Status W/U Status Risk Notes Problem Hyperglycemia (94187970) Hyperglycemia (R73.9) Active confirmed Problem Vitamin D deficiency (61113091) Vitamin D deficiency (E55.9) Active confirmed Problem Essential hypertension (38171071) Essential hypertension (I10) Active confirmed Problem Restless legs syndrome (02404674) Restless leg syndrome (G25.81) Active confirmed Problem Generalized anxiety disorder (00044185) Generalized anxiety disorder (F41.1) Active confirmed Problem Anxiety disorder (241371907) Anxiety disorder, unspecified (F41.9) Active confirmed Problem Long-term current use of anticoagulant (372015527) nursing home (current) use of anticoagulants (Z79.01) Active confirmed Problem Reactive depression (situational) (34030768) Situational depression (F43.21) Active confirmed Problem Sleep disturbance (25138138) Sleep disturbance (G47.9) Active confirmed Problem Gastroesophageal reflux disease (741121317) Gastroesophageal reflux disease, esophagitis presence not specified (K21.9) Active confirmed Problem Insomnia (699790646) Insomnia, unspecified type (G47.00) Active confirmed Problem Hyperlipidaemia (57727861) Hyperlipidemia, unspecified hyperlipidemia type (E78.5) Active confirmed Problem Dyslipidemia (149734857) Dyslipidemia (E78.5) Active confirmed Problem Menopause (639533509) Perimenopausal symptoms (N95.1) Active confirmed Problem Anxiety depression (123975562) Anxiety with depression (F41.8) Active confirmed Problem Fibrocystic breast changes (45185269) Fibrocystic breast disease (FCBD), unspecified laterality (N60.19) Active confirmed Problem Allergic rhinitis (25136284) Acute allergic rhinitis (J30.9) Active confirmed Problem Renal infarct (03608312) Renal infarct (N28.0) Active confirmed Problem Stricture of artery (51098685) 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) Active confirmed Vital Signs Heart Rate 74 /min 10/10/2024 Blood pressure diastolic 90 mm Hg 10/10/2024 Height 65.25 in 10/10/2024 Blood pressure systolic 130 mm Hg 10/10/2024 Weight 138.4 lbs 10/10/2024 BMI 22.85 kg/m2 10/10/2024 Encounters Encounter Location Date Provider Diagnosis [facility] [address] [place] [id number] 03/21/2024 Beba Lam Essential hypertensi on I10 and meterman (current) use of anticoagulants Z79.01 [facility] [address]10 [facility] [address] [place], [place] [id number] 08/26/2024 Beba Lam Essential hypertensi on I10 ; Anxiety disorder, unspecified F41.9 ; Renal infarct N28.0 ; Acute allergic rhinitis J30.9 ; Dyslipidemia E78.5 and BMI 22.0-22.9, adult Z68.22 [facility] [address] [place], [place] [id number] 10/10/2024 Beba Lam Essential hypertensi on I10 ; Situational depression F43.21 ; Renal infarct N28.0 ; meterman (current) use of anticoagulants Z79.01 ; Acute allergic rhinitis J30.9 ; Vitamin D deficiency E55.9 and BMI 22.0-22.9, adult Z68.22 [facility] [address] [place], [place] [id number] 03/18/2024 Beba Lam Pharyngitis, unspeci fied etiology J02.9 ; Bronchitis J40 and Essential hypertension I10 [facility] [address] [place], [place] [id number] 12/21/2023 [place] Heath [facility] [address] [place] [id number] 05/20/2024 Beba Lam [facility] [address] [place] [id number] 05/27/2024 Beba Lam [facility] [address] [place] [id number] 07/10/2024 Beba Lam [facility] [address] [place] [id number] 07/30/2024 Beba Lam [facility] [address] [place], [place] [id number] 09/10/2024 Beba Lam Screening for breast cancer Z12.39 [facility] [address] [place] [id number] 09/23/2024 Beba Lam [facility] [address] [place], [place] [id number] 09/27/2024 Beba Lam [facility] [address] [place], [place] [id number] 10/24/2024 Beba Lam Assessments Encounter Date Diagnosis (ICD Code) Assessment Notes Treatment Notes Treatment Clinical Notes Section Notes 03/18/2024 Bronchitis (ICD-10 - J40) 03/18/2024 Pharyngitis, unspecified etiology (ICD-10 - J02.9) 03/21/2024 Essential hypertension (ICD-10 - I10) To ER for evaluation 03/21/2024 meterman (current) use of anticoagulants (ICD-10 - Z79.01) 08/26/2024 Essential hypertension (ICD-10 - I10) 08/26/2024 Anxiety disorder, unspecified (ICD-10 - F41.9) 09/10/2024 Screening for breast cancer (ICD-10 - Z12.39) 10/10/2024 Essential hypertension (ICD-10 - I10) 10/10/2024 Situational depression (ICD-10 - F43.21) 08/26/2024 Renal infarct (ICD-10 - N28.0) 10/10/2024 Renal infarct (ICD-10 - N28.0) 03/18/2024 Essential hypertension (ICD-10 - I10) 08/26/2024 Acute allergic rhinitis (ICD-10 - J30.9) 10/10/2024 meterman (current) use of anticoagulants (ICD-10 - Z79.01) 10/10/2024 Acute allergic rhinitis (ICD-10 - J30.9) 08/26/2024 Dyslipidemia (ICD-10 - E78.5) 08/26/2024 BMI 22.0-22.9, adult (ICD-10 - Z68.22) 10/10/2024 Vitamin D deficiency (ICD-10 - E55.9) 10/10/2024 BMI 22.0-22.9, adult (ICD-10 - Z68.22) Plan Of Treatment Next Appt Details Provider Name:Beba Fontanezsanthosh er, 02/03/2025 01:00:00 PM, [address], [address], [place], [place], [id number], Insurance Providers Payer Name Payer Address Payer Phone Subscriber Number Group Number Insured Name Patient Relationship to Insured Coverage Start Date Coverage End Date JACQUELIN [employer] [address] [place] [address] [id number] FROYLAN DAMICO Self - patient is the insured Medications Administered Medication Instructions Date of Administration Dosage Notes Dexamethasone 12/19/2016 1 mL Dexamethasone 06/27/2023 1 mL vitamin K 03/08/2021 5 mg Medical (General) History Medical History History ICD Code hypertension, ECHO and stress test in 20 asthma allergic rhinitis Restless Leg Syndrome 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 Richardson 10/2023 Hospitalization History Reason Date(Month/Year) above surgeries
--- OUTSIDE RECORDS SUMMARY | 2024-11-26 15:03 | XMS_ITS | Patient Health Record ---
Author Organization [facility] Address [address] [facility] [place] [address] Care Team Providers Care Top Dyeing Machine Loader Name Role Phone Jennifer Cruz Primary Care Provider [phone] Allergies Allergen (clinical drug ingredient) Drug/Non Drug Allergy documented on EMR Reaction Allergy Type Onset Date Status acetaminophen / oxycodone Percocet Unknown Drug Allergy Active codeine Codeine Unknown Drug Allergy Active ibuprofen Ibuprofen Unknown Drug Allergy Active Reason For Referral No Information Problems Problem Type SNOMED Code ICD Code Onset Dates Problem Status W/U Status Risk Notes Problem Alcohol dependence (36761162) Uncomplicated alcohol dependence (F10.20) Active confirmed Problem Opioid dependence (25215553) Uncomplicated opioid dependence (F11.20) Active confirmed Plan Of Treatment No Information Insurance Providers Payer Name Payer Address Payer Phone Subscriber Number Group Number Insured Name Patient Relationship to Insured Coverage Start Date Coverage End Date [facility] [address] [address] [place] [phone] [id number] Mariama Pantoja Self - patient is the insured 4 Medical (General) History Surgical History Surgery Date(Month/Year) rt kidney blood clot tubal hysterectomy nasal septum sx broke neck
--- OUTSIDE RECORDS SUMMARY | 2024-11-26 15:03 | XMS_ITS | Encounter Summary ---
[facility] Address [address] [place] [address] Care Team Providers Care Bean Snipper Name Role Phone Dallas Lam MD Primary Care Provider [phone] Reason for Visit * Reason Comments Med Refill Encounter Details Date Type Department Care Team (Late st Contact Info) Description 05/07/2022 Refill [facility] BARIATRIC SURGERY [address] [place] [address] Ping Martin, MARTHA Social History Tobacco Use Types Packs/Day Years [...] or training? Not on file Preferred Language Tajik 12/23/2021 Comments No Sex and Gender Information [...] 12/18/2024 11:00 AM EDT Office Visit [facility] NEUROSURGERY [address] [facility] [address] [place] [address] Chetna Dallas PA-C 1760 [facility] [address] [place] [address] documented as of this encounter Visit Diagnoses Not on filedocumented in this encounter Care Teams Bean Snipper Relationship Specialty Start Date End Date Dallas Lam MD 1210 [facility] [address] [facility] [address] [place] [address] PCP - General Family Medicine 11/25/24 documented as of this encounter
--- OUTSIDE RECORDS SUMMARY | 2024-11-26 15:03 | XMS_ITS | Encounter Summary ---
[facility] Address [address] [place] [id number] Care Team Providers Care Optics Technical Officer Name Role Phone Dallas Lam MD Primary Care Provider [phone] [phone] Reason for Visit * Reason Comments Med Refill Encounter Details Date Type Department Care Team (Late st Contact Info) Description 01/12/2024 Refill [facility] NEUROSURGERY [address] [address] Catrachita Rosa PA-C 1760 [place] [address] Social History Tobacco Use Types Packs/Day Years [...] or training? Not on file Preferred Language Tamazight 10/23/2023 Comments No Sex and Gender Information [...] 12/18/2024 11:00 AM EDT Office Visit [facility] NEUROSURGERY [address]60 [facility] [address] [place] [address] Celena, Chetna Rob PA-C 1760 [facility] [address] [place] [address] documented as of this encounter Visit Diagnoses Not on filedocumented in this encounter Care Teams Optics Technical Officer Relationship Specialty Start Date End Date Dallas Lam MD [facility]10 [facility] [address] [place] [address] PCP - General Family Medicine 11/25/24 documented as of this encounter
== END 2024-11-26 23:59 | disposition home or self-care (01) ==
LOC: LAB 14:58
PROVIDERS: PCP Family Medicine; Visit Provider Allergy & Immunology
DX: J30.81 Allergic rhinitis due to animal (cat) (dog) hair and dander (principal); J30.1 Allergic rhinitis due to pollen
CPT/HCPCS: 36415; 82785; 86003

== ENCOUNTER 2024-11-27 11:27 | Outpatient (CLI) | payer OTHER, SELFPAY ==
--- OUTSIDE RECORDS SUMMARY | 2024-08-26 09:15 | XMS_ITS ---
Author Organization [facility] Address [address] [place] [id number] Care Team Providers Care Winch Truck Operator Name Role Phone Beba Lam Primary Care Provider [phone] Allergies Allergen (clinical drug ingredient) Drug/Non Drug Allergy documented on EMR Reaction Allergy Type Onset Date Status gadobenate Gadobenate Unknown Drug Allergy Activ e morphine Morphine Unknown Drug Allergy Active Results Component Value Reference Range Notes CBC Fingerstick (in house) Reviewed date:08/26/2024 05:15:31 PM Interpretation: Performing Lab: Notes/Report: wbc 9.0 3.5 - 10 lym 32.4 15 - 50 mid 6.8 2 - 15 gran 60.8 35 - 80 rbc 4.65 3.5 - 5.5 hgb 13.6 11.5 - 16.5 hct 41.2 35 - 55 mcv 88.5 75 - 100 mch 29.2 25 - 35 mchc 33.0 31 - 38 plat 344 100 - 400 P-Lipid Panel Reviewed date:09/27/2024 10:43:10 AM Interpretation:chol 220, trigs 201 Performing Lab: Notes/Report: Test performed by [employer], [employer] [facility] , [address], [place] [address] Jayden Stone MD, Supervisor [employer] CLIA: [id number] Cholesterol 220 <200 mg/dL Triglycerides 201 <150 mg/dL HDL Cholesterol 93 >39 mg/dL Cholesterol / HDL Ratio 2.37 0.00-4.44 Ratio Non-HDL Cholesterol 127 <130 mg/dL LDL Cholesterol (Calculation) 87 <130 mg/dL LDL Cholesterol Levels* Less than 100 mg/dL Optimal 100 to 129 mg/dL Near Optimal/ Above Optimal 130 to 159 mg/dL Borderline High 160 to 189 mg/dL High 190 mg/dL and above Very High * Categories as recommended by the 2004 ATPIII guidelines LDL/HDL Ratio 0.9 <3.3 Ratio LDL Cholesterol Patient History Test Date: 08/26/2024 LDL Results: 87 Units: mg/dL % Change: - REASON FOR VISIT checkup, Needs labs & mammogram Medications Medication SIG (Take, Route, Frequency, Duration) Notes Start Date End Date Status Losartan Potassium 25 MG TAKE 1 TABLET B Y MOUTH EVERY DAY; Duration: 90 Not-Tak ng Venlafaxine HCl 75 MG 1 tablet with food Orally Twice a day; Duration: 30 days Active rOPINIRole HCl 2 MG TAKE 1 TABLET BY EVERY DAY; Duration: 90 Active Losartan Potassium 25 MG 1 tablet Orally Once a day; Duration: 30 days 08/26/2024 Active ALPRAZolam 1 MG 1/2 tab by mouth in the morning, 1/2 tab in the afternoon, and 1 tab at bedtime Orally as directed; Duration: 30 day(s) 05/21/2024 Active QUEtiapine Fumarate 200 MG 1 tablet Orally bedtime; Duration: 30 days 08/26/2024 Active Rosuvastatin Calcium 20 MG TAKE 1 TABLET BY MOUTH EVERY DAY; Duration: 90 days Not-Taking Fluticasone Propionate 50 MCG/ACT 1 spray in each nostril Nasally Twice a day; Duration: 30 days 08/26/2024 Active Aspirin 81 MG 1 tablet Orally Once a day Active Loratadine 10 MG 1 tablet Orally Once a day; Duration: 30 day(s) Not-Taking Danette Allergy 180 MG 1 tablet Swallow whole with water; do not take with fruit juices. Orally Once a day Active Bisoprolol-hydroCHLOROthi azide 10-6.25 MG 1 tab(s) orally once a day; Duration: 30 day(s) Active Xarelto 20 MG 1 tab(s) orally once a day (in the evening); Duration: 30 day(s) Not-Taking Problems Problem Type SNOMED Code ICD Code Onset Dates Problem Status W/U Status Risk Notes Problem Allergic rhinitis (07007586) Acute allergic rhinitis (J30.9) Active confirmed Problem Dyslipidemia (326630731) Dyslipidemia (E78.5) Active confirmed Vital Signs Blood pressure systolic 142 mm Hg 08/27/19 25 Blood pressure diastolic 90 mm Hg 025 Heart Rate 82 /min 08/26/2024 Height 65.25 in 08/26/2024 Weight 138.0 lbs 08/26/2024 BMI 22.79 kg/m2 08/26/2024 Encounters Encounter Location Date Provider Diagnosis [facility] [facility] [address] [phone] 08/26/2024 Beba Lam Essential hypertensi on I10 ; Anxiety disorder, unspecified F41.9 ; Renal infarct N28.0 ; Acute allergic rhinitis J30.9 ; Dyslipidemia E78.5 and BMI 22.0-22.9, adult Z68.22 Assessments Encounter Date Diagnosis (ICD Code) Assessment Notes Treatment Notes Treatment Clinical Notes Section Notes 08/26/2024 Essential hypertension (ICD-10 - I10) 08/26/2024 Anxiety disorder, unspecified (ICD-10 - F41.9) 08/26/2024 Renal infarct (ICD-10 - N28.0) 08/26/2024 Acute allergic rhinitis (ICD-10 - J30.9) 08/26/2024 Dyslipidemia (ICD-10 - E78.5) 08/26/2024 BMI 22.0-22.9, adult (ICD-10 - Z68.22) Plan Of Treatment Medication Medication Name Sig Start Date Stop Date Notes QUEtiapine Fumarate 100 MG TAKE 1 TABLET BY MOUTH AT BEDTIME NEEDED 90 DAYS Losartan Potassium 25 MG 1 tablet Orally Once a day; Duration: 30 days 08/26/2024 QUEtiapine Fumarate 200 MG 1 tablet Oral ly bedtime; Duration: 30 days 08/26/2024 Fluticasone Propionate 50 MCG/ACT 1 spray in each nostril Nasally Twice a day; Duration: 30 days 08/26/2024 Next Appt Details Follow Up: 6 Weeks, Reason: Provider Name:Beba Singleton er, 02/03/2025 01:00:00 PM, [address], [address], [place], [place], [phone], Progress Notes * SHAMIKA DAMICOJOSHDOB: [birth year] (54 yo F)Acc No.[id number]:08/26/2024 Progress Notes Patient: FROYLAN [place] Provider: Beba Lam M.D. :1970 A ge:53 Y S ex:Female Date:08/26/2024 Address:[place], [id number] Subjective: * Chief Complaints: * 1 . Checkup. 2. Needs labs & mammogram. * HPI: P sychology: The pt is here for a check up on Depression with anxiety. Pt states she is having pain and pressure in her sinuses and swollen tonsils. Pt states she is having sinus drainage. C ardiology: The pt states she is not taking Losartan, Xarelto or Rosuvastatin due to insurance coverage. Denies : Chest Pain. D enies : Short of Breath. D enies : Dizziness. D enies : Palpitations. * ROS: D ERMATOLOGY: no R donnell. n o H sabrina. G ASTROENTEROLOGY: no N ausea. n o V omiting. n o D iarrhea.? U ROLOGY: no D ifficulty urinating. n o B lood in urine. * Medical History: h ypertension, ECHO and stress test in 2017, Asthma, Allergic rhinitis, Restless Leg Syndrome, Esophageal reflux, SOFTWARE SUPPORT SPECIALIST - Dr. Padgett, Shingrix 2 shot, 2019, COVID 19 Vaccine 01/02/2021 Pfizer, Celiac artery stenosis. * Surgical History: t ubal ligation 1991, hysterectomy partial 2002, Sinusitis surgery x 2 2008, C4, C5, C6 surgery to fix impact fracture 2006, hemorrhoidectomy (and colonoscopy?) , ACDF C3-5, Dr. Richardson 10/2023. * Hospitalization/Major Diagno stic Procedure: a yas surgeries . * Family History: F ather: alive, diagnosed with Hypertension, Diabetes. M other: alive. 1 brother(s) - healthy. 1 son(s) , 1 daughter(s) - healthy. . Father - Type 2 diabetic. * Social History: C URRENT TOBACCO USE: No . C affeine: yes, frequency: coffee, daily. Home smoke detector use: yes. Marital Status: . Alcohol: No. * Medications: T aking Aspirin 81 MG Tablet Chewable 1 tablet Orally Once a day , Taking Danette Allergy 180 MG Tablet 1 tablet Swallow whole with water; do not take with fruit juices. Orally Once a day , Taking Bisoprolol-hydroCHLOROthiazide 10-6.25 MG Tablet 1 tab(s) orally once a day , Taking ALPRAZolam 1 MG Tablet 1/2 tab by mouth in the morning, 1/2 tab in the afternoon, and 1 tab at bedtime Orally as directed , Taking QUEtiapine Fumarate 100 MG Tablet TAKE 1 TABLET BY MOUTH AT BEDTIME NEEDED 90 DAYS , Taking rOPINIRole HCl 2 MG Tablet TAKE 1 TABLET BY MOUTH EVERY DAY , Taking Venlafaxine HCl 75 MG Tablet 1 tablet with food Orally Twice a day , Not-Taking Loratadine 10 MG Tablet 1 tablet Orally Once a day , Not-Taking Xarelto 20 MG Tablet 1 tab(s) orally once a day (in the evening) , Not-Taking Rosuvastatin Calcium 20 MG Tablet TAKE 1 TABLET BY MOUTH EVERY DAY , Not-Taking Losartan Potassium 25 MG Tablet TAKE 1 TABLET BY MOUTH EVERY DAY , Discontinued Medrol 4 MG Tablet Therapy Pack as directed orally daily * Allergies: M orphine, Gadobenate. Objective: * Vitals: W t: 138.0, Temp: 98.2, BP: 142/90, HR: 82, O2 Sat: 99% on RA, Nurse: LANIE, Ht: 65.25, BMI:22.79. * Examination: G eneral Examination: General Appearance: N AD, hoarse. H EENT: TM's normal. O ral cavity: s ome e rythema at tonsilar areas.. N pavan: s upple, no lymphadenopathy. Surgical scar. C hest: n ormal shape and expansion. H eart: R SR, 132/92. L ungs: c lear to auscultation. N eurologic Exam: I ntact, gait normal.?Skin: n ormal, no rash. P eripheral pulses: n ormal. E xtremities: n o leg edema. Assessment: * Assessment: 1. E ssential hypertension - I10 (Primary) 2 . A nxiety disorder, unspecified - F41.9 3 . R enal infarct - N28.0 4 . A cute allergic rhinitis - J30.9 5 . D yslipidemia - E78.5 6 . B AR 22.0-22.9, adult - Z68.22 Plan: * Treatment: 2. A nxiety disorder, unspecified Stop QUEtiapine Fumarate Tablet, 100 MG, TAKE 1 TABLET BY MOUTH AT BEDTIME NEEDED 90 DAYS; S tart QUEtiapine Fumarate Tablet, 200 MG, 1 tablet, Orally, bedtime, 30 days, 30, Refills 3. ? 3. A cute allergic rhinitis Start Fluticasone Propionate Suspension, 50 MCG/ACT, 1 spray in each nostril, Nasally, Twice a day, 30 days, 1, Refills 3. L AB: CBC Fingerstick (in house) (Collection Date & Time - 08/26/2024) Value Reference Range w bc 9.0 3.5 - 10 * l ym 32.4 15 - 50 * m id 6.8 2 - 15 * g ran 60.8 35 - 80 * r bc 4.65 3.5 - 5.5 * h gb 13.6 11.5 - 16.5 * h ct 41.2 35 - 55 * m cv 88.5 75 - 100 * m ch 29.2 25 - 35 * m chc 33.0 31 - 38 * p lat 344 100 - 400 * Karime Platt 08/26/2024 02 :07:10 PM EDT > Provider reviewed results while patient in office. 4.?Dyslipidemia?LAB: P-Lipid Panel (Collection Date & Time - 08/26/2024 02:24 PM)?chol 220, trigs 201* Value Reference Range C holesterol / HDL Ratio 2.37 0.00-4.44 - Ratio * C holesterol 220 H <200 - mg/dL * H DL Cholesterol 93 >39 - mg/dL * L DL Cholesterol (Calculation) 87 <130 - mg/d L * L DL/HDL Ratio 0.9 <3.3 - Ratio * N on-HDL Cholesterol 127 <130 - mg/dL * T riglycerides 201 H <150 - mg/dL * Ruth Ann Britt 09/27/2024 10:43 :03 AM EDT > See phone encounter * Procedure Codes: 8 5025 CBC WITH AUTO DIFF, 1036F TOBACCO NON-USER, G8420 BMI<30 AND >=22 CALC & DOCU, G8950 PREHTN/HTN BP DOC INDCD F/U DOC, G8753 MOST RECENT SYSTOLIC BP >= 140MM HG, G8755 MOST RECENT DIASTOLIC BP >= 90MM HG * Follow Up: 6 Weeks * Images: Billing Information: * Visit Code: 02183 Office Visit, Est Pt., Level 4. * Procedure Codes: 97829 CBC WITH AUTO DIFF. 1036F TOBACCO NON-USER. G8420 BMI<30 AND >=22 CALC & DOCU. G8950 PREHTN/HTN BP DOC INDCD F/U DOC. G8753 MOST RECENT SYSTOLIC BP >= 140MM HG. G8755 MOST RECENT DIASTOLIC BP >= 90MM HG. * Electronic signature of Beba Lam MD on 11/27/2024 at 12:28 PM EDT Sign off status: Pending * Provider: Beba Lam M.D. Date: 0 08/26/2024 Generated for Dulce Maria lowry/Apolinar/Ron on: 1 12:28 PM EDT History and Physical Notes * HPI (History of Present Illness) Category Sub-Category Detail Notes Category Not es Cardiology Short of Breath Chest Pain Palpitations Dizziness Examination Category Sub-Category Detail Notes Category Not es General Examination HEENT: TM's normal Heart: RSR, 132/92 Lungs: clear to auscultatio n Extremities: no leg edema General Appearance: NAD, hoarse Skin: normal, no rash Neurologic Exam: Intact, gait normal Neck: supple, no lymphaden opathy. Surgical scar Oral cavity: some erythema at ton silar areas. Peripheral pulses: normal Chest: normal shape and exp ansion
--- OUTSIDE RECORDS SUMMARY | 2024-10-10 10:15 | XMS_ITS ---
Author Organization [facility] Address [address] [place] [id number] Care Team Providers Care Commodity Buyer Name Role Phone Beba Lam Primary Care Provider Allergies Allergen (clinical drug ingredient) Drug/Non Drug Allergy documented on EMR Reaction Allergy Type Onset Date Status gadobenate Gadobenate Unknown Drug Allergy Activ e morphine Morphine Unknown Drug Allergy Active Results Component Value Reference Range Notes P-Basic Metabolic Panel (BMP ) Reviewed date:10/24/2024 09:04:59 AM Interpretation:Normal Performing Lab: Notes/Report: Test performed by [facility] [address] [place] [address] [place] [address] Jayden Stone MD, Plastic Sewer CLIA: [id number] Sodium 141 135-145 mmol/L Potassium 4.5 3.5-5.3 mmol/L Chloride 103 97-108 mmol/L CO2 25 20-32 mmol/L Glucose 102 65-99 mg/dL BUN 9 6-20 mg/dL Creatinine 0.64 0.50-1.00 mg/dL Calcium 9.4 8.6-10.4 mg/dL eGFR by Creatinine 104 >59 mL/min/1.73m2 P-Sed Rate (ESR) Reviewed date:10/24/2024 09:04:59 AM Interpretation:Normal Performing Lab: Notes/Report: Test performed by [facility] [address] [place], [place] [address]I AM AT [place] Keisha Thompson C, [place] [address] Jayden Stone MD, Plastic Sewer CLIA: [id number] Erythrocyte Sedimentation Rate (ESR), Automated 4 <31 mm/hr P-Factor V Leiden Genotyping Reviewed date:10/24/2024 09:04:59 AM Interpretation:Negative Performing Lab: Notes/Report: Test performed by [facility] [address] [place] [address] , [address], [place] [address] Jayden Stone MD, Plastic Sewer CLIA: [id number] Factor V Mutation NEGATIVE NEGATIVE Factor V Normal Allele (G1691): Present Factor V Mutant Allele (A1691): Not Present Interpretation: This patient is normal (no mutation observed) with respect to the Factor V (Leiden) J1820L mutation. Method: Genomic DNA was isolated from the patient specimen and used in PCR with a Taqman genotyping assay designed to identify the Factor V Leiden mutation (as3554, Transcript NM_[id number]: c.1601G>A, p.Oii159Mjj). Diagnostic errors can occur due to rare DNA sequence variants that may interfere with the assay. The results of this test should be interpreted in the context of other clinical or laboratory findings. This test was developed and its performance characteristics determined by [facility]. It has not been cleared or approved [...] testing. Clinical Utility: The Factor V Leiden (Z1149Y) mutation is presented in 45% of familial thrombophilia and is the most common genetic risk factor identified in the patients with deep vein thrombosis. Individuals who are heterozygous for the Factor V Leiden mutation have a 5-10 fold increased risk of venous thrombosis, while homozygous individuals have a 50-100 fold increased risk of venous thrombosis. Test performed by [facility], [facility] d/b/a [email or web address] , [place] [address], Guero Sampson DO, Plastic Sewer, CLIA# [id number] P-Vitamin D 1,25-Dihydroxy a nd 25-Hydroxy Reviewed date:10/24/2024 09:04:59 AM Interpretation:37 Performing Lab: Notes/Report: Test performed by [facility] [address] [place] [address] , [address], [place] [address] Jayden Stone MD, Plastic Sewer CLIA: [id number] Vitamin D 25-Hydroxy 37.0 30.0-100.0 ng/mL Interpretation [...] Status Risk Notes Problem Vitamin D deficiency (28362382) Vitamin D deficiency (E55.9) Active confirmed Vital Signs Blood pressure systolic 130 mm Hg 10/11/19 25 Blood pressure diastolic 90 mm Hg 025 Heart Rate 74 /min 10/10/2024 Height 65.25 in 10/10/2024 Weight 138.4 lbs 10/10/2024 BMI 22.85 kg/m2 10/10/2024 Encounters Encounter Location Date Provider Diagnosis [facility] [address] [id number] 10/10/2024 Beba Lam Essential hypertensi on I10 ; Situational depression F43.21 ; Renal infarct N28.0 ; technician terminal and repeater (current) use of anticoagulants Z79.01 ; Acute allergic rhinitis J30.9 ; Vitamin D deficiency E55.9 and BMI 22.0-22.9, adult Z68.22 Assessments Encounter Date Diagnosis (ICD Code) Assessment Notes Treatment Notes Treatment Clinical Notes Section Notes 10/10/2024 Essential hypertension (ICD-10 - I10) 10/10/2024 Situational depression (ICD-10 - F43.21) 10/10/2024 Renal infarct (ICD-10 - N28.0) 10/10/2024 retirement (current) use of anticoagulants (ICD-10 - Z79.01) [...] [address], [address], [place], [place], [id number], Progress Notes * FROYLAN DAMICODOB: [birth year] (54 yo F)Acc No.[id number]:10/10/2024 Progress Notes Patient: FROYLAN WILLIS Provider: Beba Lam M.D. :1970 A ge:53 Y S ex:Female Date:10/10/2024 Address:[place], [id number] Subjective: * Chief Complaints: * 1 . 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 B NH 22.0-22.9, adult - Z68.22 ? Plan: * [...] * Images: Billing Information: * Visit Code: 44088 Office Visit, Est Pt., Level 4. * Procedure Codes: 1036F TOBACCO NON-USER. 3075F SYST BP GE 130 - 139MM HG. 3080F DIAST BP = 90 MM HG. * Electronic signature of Beba Lam MD on 11/27/2024 at 12:28 PM EDT Sign off status: Pending * Provider: Beba Lam M.D. Date: 0 10/10/2024 Generated for Dulce Maria lowry/Apolinar/eTransmitting on: 1 12:28 PM EDT History and [...]
--- OUTSIDE RECORDS SUMMARY | 2024-11-01 05:00 | XMS_ITS ---
Author Organization [facility] Address [address] [facility] 36 [facility] [address] [place] [id number] Care Team Providers Care Plastics Design Engineer Name Role Phone Beba Lam Primary Care Provider Romana Heath [phone] Allergies Allergen (clinical drug ingredient) Drug/Non Drug Allergy documented on EMR Reaction Allergy Type Onset Date Status gadobenate Gadobenate Unknown Drug Allergy Activ e morphine Morphine Unknown Drug Allergy Active REASON FOR VISIT sinus infection Encounters Encounter Location Date Provider Diagnosis [facility] [address] [place] [id number] 11/01/2024 Romana Heath Plan Of Treatment Next Appt Details Provider Name:Beba Singleton er, 02/03/2025 01:00:00 PM, 1210 [facility] 36 [facility], [address], [place], [place], [id number], Progress Notes * FROYLAN DAMICODOB: [birth year] (54 yo F)Acc No.[id number]:11/01/2024 Progress Notes Patient: FROYLAN WILLIS Provider: EDU Hernandez :1970 A ge:53 Y S ex:Female Date:11/01/2024 Address:[place], [id number] Pcp:Beba Lam Subjective: * Chief Complaints: * 1 . Sinus infection. * HPI: E NT/respiratory: 53 year old female presents with c/o nasal congestion. * ROS: D ERMATOLOGY: no R donnell. n o H sabrina. G ASTROENTEROLOGY: no N ausea. n o V omiting. n o D iarrhea.? U ROLOGY: no D ifficulty urinating. n o B lood in urine. 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 Marital Status: . Alcohol: No. * Allergies: M orphine, Gadobenate. Objective: * Vitals: Assessment: Plan: * Treatment: * Images: Billing Information: * Visit Code: * Procedure Codes: * Electronic signature of EDU Bunch on 11/27/2024 at 12:29 PM EDT Sign off status: Pending * Provider: EDU Hernandez Date: 0 11/01/2024 Generated for Dulce Maria lowry/Apolinar/eTransmitting on: 1 12:29 PM EDT History and Physical Notes * HPI (History of Present Illness) Category Sub-Category Detail Notes Category Not es ENT/respiratory nasal congestion
--- OUTSIDE RECORDS SUMMARY | 2024-11-25 11:08 | XMS_ITS | Encounter Summary ---
Author Organization [facility] Address [address] [place] [address] Care Team Providers Care Purchasing Coordinator Name Role Phone Dallas Lam MD Primary Care Provider [phone] [phone] Reason for Visit * Diagnostic Imaging (Emergency) - Closed Specialty Diagnoses / Procedures Referred By Shane glez Referred To Contact Radiology Diagnoses Cervical spondylosis with myelopathy S/P cervical spinal fusion Procedures XR Spine Cervical 2 View Celena, Chetna Rob PA-C [address] [address] Phone: tel: fax: Referral ID Status Reason Start Date Expiration Date Visits Re quested Visits Authorized [id number] Closed 08/23/2024 11/22/2025 1 1 Encounter Details Date Type Department Care Team (Latest Contact Info) Description 11/25/2024 11:08 AM EDT - 11/25/2024 11:59 PM EDT Hospital Encounter [facility] XRAY [address] [place] [phone] Arrived Discharge Disposition: Home or Self Care Social [...] you are drinking? Patient does not drink 11/02/202 2 Q3: How often do you have si [...] or training? Not on file Preferred Language Turkmen 10/23/2023 Comments No Sex and Gender Information [...] Description 12/18/2024 11:00 AM EDT Office Visit [facility] NEUROS[facility]GERY 1760 [facility] [address] [place] [address] Apro, Chetna Rob PA-C 1760 [facility] 301 [place] [address] documented as of this encounter Goals Goal [...] MD 11/25/2024 12:01 PM EDT Workstation ID: [id number] Narrative 11/25/2024 12:01 PM EDT XR SPINE [...] MD 11/25/2024 12:01 PM EDT Workstation ID: [id number] [facility] Celena PA-C IMG DIAGNOSTIC IMAGING ORDERABLES Final Result documented in this encounter Visit Diagnoses Not on filedocumented in this encounter Additional Health Concerns Active Problems Noted Date Diagnosed Date Autogenerated Problem 08/30/2024 documented as of this encounter Care Teams Purchasing Coordinator Relationship Specialty Start Date End Date Dallas Lam MD [facility]0 [facility] [address] [facility] [address] [place] [address] PCP - General Family Medicine 11/25/24 documented as of this encounter
--- OUTSIDE RECORDS SUMMARY | 2024-11-26 11:15 | XMS_ITS ---
Author Organization [facility] Address [address] [place] [id number] Care Team Providers Care Senior Media Director Name Role Phone Beba Lam Primary Care Provider Darcy Reyes [phone] Allergies Allergen (clinical drug ingredient) Drug/Non Drug Allergy documented on EMR Reaction Allergy Type Onset Date Status gadobenate Gadobenate Unknown Drug Allergy Activ e morphine Morphine Unknown Drug Allergy Active REASON FOR VISIT numbness in right arm [...] TABLET BY EVERY DAY; Duration: 90 Active Bisoprolol-hydroCHLOROthiaz emlania 10-6.25 MG 1 tab(s) orally once a day; Duration: 30 day(s) Active Danette Allergy 180 MG 1 tablet Swallow whole with water; do not take with fruit juices. Orally Once a day Active Vital Signs Blood pressure systolic 122 mm Hg 11/27/19 25 Blood pressure diastolic 80 mm Hg 025 Heart Rate 62 /min 11/26/2024 Height 65.25 in 11/26/2024 Weight 138.0 lbs 11/26/2024 BMI 22.79 kg/m2 11/26/2024 Encounters Encounter Location Date Provider Diagnosis [facility] [address] [facility] 36 [facility] [address] [place] [id number] 11/26/2024 Darcy Reyes Right arm weakness R29.898 [...] 02/03/2025 01:00:00 PM, [address] [facility], [address], [place], [id number], Progress Notes * FROYLAN DAMICODOB: [birth year] (54 yo F)Acc No.[id number]:11/26/2024 Progress Notes Patient: FROYLAN WILLIS Provider: Darcy Reyes M.D. 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 * Examination: G eneral [...] - R29.898 (Primary) Plan: * Treatment: * Follow Up: v ia phone to report test results * Images: Billing Information: * Visit Code: 04069 Office Visit, Est Pt., Level 3. * Procedure Codes: * Electronic signature of Darcy Reyes MD on 11/27/2024 at 12:28 PM EDT Sign off status: Pending * Provider: Darcy Reyes M.D. Date: 0 11/26/2024 Generated for Dulce Maria lowry/Apolinar/Dreitting on: 1 12:28 PM EDT History and [...]
--- NOTE | 2024-11-27 11:32 | CT_ITS ---
FINAL REPORT TECHNIQUE: Axial CT images were performed through the head. Coronal reformatted images were submitted. This study was performed with techniques to keep radiation doses as low as reasonably achievable (ALARA). Individualized dose reduction techniques using automated exposure control or adjustment of mA and/or kV according to the patient's size were employed. CLINICAL HISTORY: NUMBNESS OF ARM. dizziness COMPARISON: 08/21/2023 FINDINGS: The ventricles are normal in size. There is no evidence of hemorrhage. There is no mass or edema identified. There is no abnormal extra-axial fluid seen. There is minimal physiologic calcification in the basal ganglia. There is extensive mucoperiosteal thickening in both maxillary sinuses, ethmoids and sphenoid sinuses consistent with chronic pansinusitis. IMPRESSION: No acute intracranial process. Chronic pansinusitis. Reviewed, Interpreted and Dictated by Thomas Escobar MD Transcribed by Giulia Rubi Authenticated and [facility]
--- OUTSIDE RECORDS SUMMARY | 2024-11-27 12:29 | XMS_ITS | Encounter Summary ---
Author Organization [facility] Address [address] [place] [address] Care Team Providers Care Lasting Floorworker Name Role Phone Dallas Lam MD Primary Care Provider [phone] [phone] Encounter Details Date Type Department Care Team [...] or training? Not on file Preferred Language Kinyarwanda 10/23/2023 Comments No Sex and Gender Information Value Date Recorded Sex Assigned at Female 08/22/2024 1:57 PM EDT Legal Sex Female 11:25 AM EDT Gender Identity Not on file Sexual Orientation Straight 08/22/2024 1: 57 PM EDT documented as of this encounter Plan of Treatment Upcoming Encounters Date Type Department Care Team (Late st Contact Info) Description 12/18/2024 11:00 AM EDT Office Visit [facility] NEUROSURGERY [address] [place] [address] Celena, Chetna Rob PA-C 1760 [facility] [address] [place] [address] documented as of this encounter Goals Goal Patient Goal Type Associated Problems Recent Progress Patient-Stated? Author Autogenerat ed Goal Care Plan Autogenerated Problem No Abilio Leon MD documented as of this encounter Visit Diagnoses Not on filedocumented in this encounter Additional Health Concerns Active Problems Noted Date Diagnosed Date Autogenerated Problem 08/30/2024 documented as of this encounter Care Teams Lasting Floorworker Relationship Specialty Start Date End Date Dallas Lam MD [address] [facility] [address] [place] [address] PCP - General Family Medicine 11/25/24 documented as of this encounter
--- OUTSIDE RECORDS SUMMARY | 2024-11-27 12:29 | XMS_ITS | Clinical Summary ---
Author Organization [facility] Address [address] [place] [address] Care Team Providers Care Equipment Cleaner And Tester Name Role Phone Dallas Lam MD Primary Care Provider [phone] [phone] Allergies Active Allergy Reactions Criticality Noted Date [...] (12/09/2021): Added automatically from request for surgery [id number] Encounters Date Type Department Care Team Description 11/25/2024 11:08 AM EDT - 11/25/2024 11:59 PM EDT Hospital Encounter [facility] XRAY [address] [facility] [place] [place] [address] Arrived Discharge Disposition: Home or Self Care 11/25/2024 Travel 10/28/2024 Refill [facility] NEUROSURGERY [address] [place] [phone] Chetna Dallas PA-C 09/23/2024 Refill [facility] NEUROSURGERY [address] [place] [address] Chetna Dallas PA-C from Last [...] or training? Not on file Preferred Language Uruguayan 10/23/2023 Comments No Sex and Gender Information [...] Description 12/18/2024 11:00 AM EDT Office Visit [facility] NEUROSURGERY [address] [phone] Chetna Dallas PA-C 1760 [facility] 301 [place] [address] Health Maintenance Due Date Last Done Comments [...] Leon MD Medical Devices Implanted Type Area Umbrella Supervisor Device Identifier Shelf Expiration Date Model / Serial / Lot Loop Recorder Implant Dev Cls Wnd Vloc/Pbt Melissa Nonabs 1/2cir Sz2/0 26mm 30cm Kalia - [id number] Implanted:Qt y: 3 on 12/29/2021 by Luis Bowen MD at [facility] Implant N/A: Stomach COVIDIEN 05/27/2024 [id number] / / [id number] Dev Cls Wnd Vloc/Pbt Melissa Nonabs /2cir Sz2/0 26mm 15cm Kalia - [id number] Implanted:Qt y: 1 on 12/29/2021 by Luis Bowen MD at [facility] Implant N/A: Abdomen COVIDIEN 05/27/2024 [id number] / / [id number] Bone Lordotic Asr 2n69t67 Fzd - [id number] - [id number] Implanted:Qt y: 1 on 11/03/2023 by Abilio Leon MD at [facility] Implant N/A: Spine Cervical [employer] 02/16/2026 [id number] / [id number] / [id number] Plt Acp Zevo [id number] Ns - [id number] Implanted:Qt y: 1 on 11/03/2023 by Abilio Leon MD at [facility] Implant N/A: Spine Cervical [employer] [id number] / / NA Scrw St Zevo 2thrd S/Tap 3.5x13mm - [id number] Implanted:Qt y: 6 on 11/03/2023 by Abilio Leon MD at [facility] Implant N/A: Spine Cervical [employer] [id number] / / NA Clip Ligat Vasc Horizon Ti Sm Yel 6ct - [id number] Implanted:Qt y: 1 on 11/03/2023 by Abilio Leon MD at [facility] Implant N/A: Spine Cervical [employer] 12/27/2027 [id number] / / [id number] Clip Ligat Vasc Horizon Ti Md Kalia 6ct - [id number] Implanted:Qt y: 1 on 11/03/2023 by Abilio Leon MD at [facility] Implant N/A: Spine Cervical [employer] 07/02/2028 [id number] / / [id number] Hemost Abs Surgifoam Sz100 8x12 10mm - [id number] Implanted:Qt y: 1 on 11/03/2023 by Abilio Leon MD at [facility] Implant N/A: Spine Cervical [employer] J AND J [id number] 06/29/2027 [id number] / / [id number] Kt Seal Hemos Abs Floseal Matrx Fast/Prep 10ml - [id number] Implanted:Qt y: 1 on 11/03/2023 by Abilio Leon MD at [facility] Implant N/A: Spine Cervical [facility] [id number] 07/31/2024 [id number] / / [id number] Wax Bone Hemo Lukens Sharpoint 2.5gm Wht - [id number] Implanted:Qt y: 1 on 11/03/2023 by Abilio Leon MD at [facility] Implant N/A: Spine Cervical [employer] MARNI 901 / / Bone Lordotic Asr 6b49d02 Fzd - [id number] - [id number] Implanted:Qt y: 1 on 11/03/2023 by Abilio Leon MD at [facility] Implant N/A: Spine Cervical [employer] 04/13/2026 [id number] / [id number] / [id number] Procedures Procedure Name Priority Date/Time Associated Diagnosis [...] MD 11/25/2024 12:01 PM EDT Workstation ID: [id number] Narrative 11/25/2024 12:01 PM EDT XR SPINE [...] MD 11/25/2024 12:01 PM EDT Workstation ID: [id number] Chetna Dallas PA-C IMG DIAGNOSTIC IMAGING ORDERABLES [...] 1:08 PM EDT Performed at: 01 - [address] [id number] Hinging Machine Operator: Bonifacio Yates PhD, Phone: [phone] Patient Fasting: N Ping Martin PA-C LAB BLOOD ORDERABLES Final Result [facility] (AMBULATORY) [address] [place] [address], [facility] [address] [place] [address], from Last 3 Months or Most Recently Relevant to Health Maintenance Additional Health Concerns Active Problems Noted Date Diagnosed Date Autogenerated Problem 08/30/2024 Insurance [employer] H[employer] Advance Directives * CPR (Attempt [...] Release to patient: Routine Release Care Teams Equipment Cleaner And Tester Relationship Specialty Start Date End Date Dallas Lam MD [facility] 36 [facility] 2 [place] [address] PCP - General Family Medicine 11/25/24
--- OUTSIDE RECORDS SUMMARY | 2024-11-27 12:29 | XMS_ITS | Encounter Summary ---
Author Organization [facility] Address [address] [place] [id number] Care Team Providers Care Chip Tester Name Role Phone Chetna Dallas PA-C Primary Care Provider Reason for Visit * Reason Comments Med Refill Encounter Details Date Type Department Care Team (Late st Contact Info) Description 10/28/2024 Refill [facility] NEUROSURGERY [address] [address] Chetna Dallas PA-C [address] [place], [place] [id number] Social History Tobacco Use Types Packs/Day Years [...] or training? Not on file Preferred Language Kyrgyz 10/23/2023 Comments No Sex and Gender Information Value Date Recorded Sex Assigned at Female 08/22/2024 1:57 PM EDT Legal Sex Female 11:25 AM EDT Gender Identity Not on file Sexual Orientation Straight 08/22/2024 1: 57 PM EDT documented as of this encounter Plan of Treatment Upcoming Encounters Date Type Department Care Team (Late st Contact Info) Description 12/18/2024 11:00 AM EDT Office Visit [facility] NEUROSURGERY 1760 [facility] [address] [place] [address] Chetna Dallas PA-C [address] [address] documented as of this encounter Goals Goal Patient Goal Type Associated Problems Recent Progress Patient-Stated? Author Autogenerat ed Goal Care Plan Autogenerated Problem No Abilio Leon MD documented as of this encounter Visit Diagnoses Not on filedocumented in this encounter Additional Health Concerns Active Problems Noted Date Diagnosed Date Autogenerated Problem 08/30/2024 documented as of this encounter Care Teams Chip Tester Relationship Specialty Start Date End Date Chetna Dallas PA-C 1760 [facility] [address] [place] [address] PCP - General Physician Fleet Administrator 08/23/24 11/24/24 documented as of this encounter
--- OUTSIDE RECORDS SUMMARY | 2024-11-27 12:29 | XMS_ITS | Patient Health Record ---
Author Organization [facility] Address [address] [facility] [place] [address] Care Team Providers Care Supervisor Cartography Name Role Phone Jennifer Cruz Primary Care [...] W/U Status Risk Notes Problem Alcohol dependence (05008968) Uncomplicated alcohol dependence (F10.20) Active confirmed Problem Opioid dependence (76691114) Uncomplicated opioid dependence (F11.20) Active confirmed Plan Of Treatment No Information Insurance Providers Payer Name Payer Address Payer Phone Subscriber Number Group Number Insured Name Patient Relationship to Insured Coverage Start Date Coverage End Date [facility] [address] [address] [place] [phone] [id number] Mariama Pantoja Self - patient is the insured 4 Medical (General) History Surgical History Surgery Date(Month/Year) rt kidney blood clot tubal hysterectomy nasal septum sx broke neck
--- OUTSIDE RECORDS SUMMARY | 2024-11-27 12:30 | XMS_ITS | Patient Health Record ---
[facility] Address [address] [facility] [address] [place] [id number] Care Team Providers Care Outsole Tacker Name Role Phone Beba Lam Primary Care Provider Darcy Reyes Unavailable [phone] Romana Heath Unavailable [phone] Allergies Allergen (clinical drug ingredient) Drug/Non Drug [...] 201 Performing Lab: Notes/Report: Test performed by [facility], [employer] [address] [place] [address] , [address], [place] [address] Jayden Stone MD, Residential Energy Auditor CLIA: [id number] Cholesterol 220 <200 mg/dL Triglycerides 201 <150 [...] Interpretation:Normal Performing Lab: Notes/Report: Test performed by [facility], [address] , [address], [place] [address] Jayden Stone MD, Residential Energy Auditor CLIA: [id number] Sodium 141 135-145 mmol/L Potassium 4.5 3.5-5.3 mmol/L Chloride 103 97-108 mmol/L CO2 25 20-32 mmol/L Glucose 102 65-99 mg/dL BUN 9 6-20 mg/dL Creatinine 0.64 0.50-1.00 mg/dL Calcium 9.4 8.6-10.4 mg/dL eGFR by Creatinine 104 >59 mL/min/1.73m2 P-Sed Rate (ESR) Reviewed date:10/24/2024 09:04:59 AM Interpretation:Normal Performing Lab: Notes/Report: Test performed by [facility] [address] [place], [place] [address]Walk-in Appointment Scheduler [place] [address], [place] [address] Jayden Stone MD, Residential Energy Auditor CLIA: [id number] Erythrocyte Sedimentation Rate (ESR), Automated 4 <31 mm/hr P-Factor V Leiden Genotyping Reviewed date:10/24/2024 09:04:59 AM Interpretation:Negative Performing Lab: Notes/Report: Test performed by [facility] [address] Appointment Scheduler [place] , Keisha C, [place] [address] Jayden Stone MD, Residential Energy Auditor CLIA: [id number] Factor V Mutation NEGATIVE NEGATIVE Factor V Normal Allele (G1691): Present Factor V Mutant Allele (A1691): Not Present Interpretation: This patient is normal (no mutation observed) with respect to the Factor V (Leiden) T1180Q mutation. Method: Genomic DNA was isolated from the patient specimen and used in PCR with a Taqman genotyping assay designed to identify the Factor V Leiden mutation ([id number], Transcript [id number]: c.1601G>A, p.Loa616Dpz). Diagnostic errors can occur due to rare DNA sequence variants that may interfere with the assay. The results of this test should be interpreted in the context of other clinical or laboratory findings. This test was developed and its performance characteristics determined by [facility]. It has not been cleared or approved [...] testing. Clinical Utility: The Factor V Leiden (A8042Y) mutation is presented in 45% of familial thrombophilia and is the most common genetic risk factor identified in the patients with deep vein thrombosis. Individuals who are heterozygous for the Factor V Leiden mutation have a 5-10 fold increased risk of venous thrombosis, while homozygous individuals have a 50-100 fold increased risk of venous thrombosis. Test performed by [facility], [facility] d/b/a [address] , [address], [place] [address], Guero Sampson DO, Residential Energy Auditor, CLIA# [id number] P-Vitamin D 1,25-Dihydroxy a nd 25-Hydroxy Reviewed date:10/24/2024 09:04:59 AM Interpretation:37 Performing Lab: Notes/Report: Test performed by [facility], [address] , [address], [place] [address] Jayden Stone MD, Residential Energy Auditor CLIA: [id number] Vitamin D 25-Hydroxy 37.0 30.0-100.0 ng/mL Interpretation of Vitamin D 25 OH: < 20 ng/mL - Deficiency 20 - 29 ng/mL - Insufficiency 30 - 100 ng/mL - Sufficiency > 100 ng/mL - Super-therapeutic- toxicity may occur above this level. Clinical correlation required. Vitamin D, 1, 25 Dihydroxy 61.0 19.9-79.3 pg/m L Mammogram Reviewed date:10/22/2024 09:08:57 AM Interpretation:Negative Performing Lab: Notes/Report: Negative result Negative CBC Fingerstick (in house) Reviewed date:03/19/2024 10:15:38 [...] 235 100 - 400 Reason For Referral Reason allergic/rhinitis Diagnosis 1 Acute allergic rhini tis (J30.9) Referral Organization [facility] Referring Provider First Name Beba Howard Referring Provider Last Name Genaro Referring Provider Speciality Family [facility] ctice Referred Provider Specialty Allergy/Immu nology General [...] once a day; Duration: 30 day(s) Active Loratadine 10 MG 1 tablet Orally Once a day; Duration: 30 day(s) Active Danette Allergy 180 MG 1 tablet Swallow whole with water; do not take with fruit juices. Orally Once a day Active Montelukast Sodium 10 MG 1 tablet Orally Once a day; Duration: 30 days 10/10/2024 Active Immunizations Vaccine Route Administration Date Status Comme nts Hepatitis A (adult) Unknown 11/27/2017 Administered Hepatitis A (adult) Unknown 10/03/2018 Administered Tetanus Tdap-Adacel (over 7yrs) Unknown 01/02/2021 Administered Zostavax IM Intramuscular 2018 Administered Zostavax Unknown 03/04/2019 Administered Problems Problem Type SNOMED Code ICD Code Onset Dates Problem Status W/U Status Risk Notes Problem Hyperglycemia (35279252) Hyperglycemia (R73.9) Active confirmed Problem Vitamin D deficiency (92239811) Vitamin D deficiency (E55.9) Active confirmed Problem Essential hypertension (70777532) Essential hypertension (I10) Active confirmed Problem Restless legs syndrome (77083158) Restless leg syndrome (G25.81) Active confirmed Problem Generalized anxiety disorder (13734779) Generalized anxiety disorder (F41.1) Active confirmed Problem Anxiety disorder (851537620) Anxiety disorder, unspecified (F41.9) Active confirmed Problem Long-term current use of anticoagulant (248030270) 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) Active confirmed Problem Reactive depression (situational) (86874479) Situational depression (F43.21) Active confirmed Problem Sleep disturbance (53880584) Sleep disturbance (G47.9) Active confirmed Problem Gastroesophageal reflux disease (596305122) Gastroesophageal reflux disease, esophagitis presence not specified (K21.9) Active confirmed Problem Insomnia (046880981) Insomnia, unspecified type (G47.00) Active confirmed Problem Hyperlipidaemia (64321532) Hyperlipidemia, unspecified hyperlipidemia type (E78.5) Active confirmed Problem Dyslipidemia (631367372) Dyslipidemia (E78.5) Active confirmed Problem Menopause (950990388) Perimenopausal symptoms (N95.1) Active confirmed Problem Anxiety depression (740417344) Anxiety with depression (F41.8) Active confirmed Problem Fibrocystic breast changes (52898202) Fibrocystic breast disease (FCBD), unspecified laterality (N60.19) Active confirmed Problem Allergic rhinitis (26757803) Acute allergic rhinitis (J30.9) Active confirmed Problem Renal infarct (88991440) Renal infarct (N28.0) Active confirmed Problem Stricture of artery (22461626) 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) Active confirmed Vital Signs Heart Rate 62 /min 11/26/2024 Blood pressure diastolic 80 mm Hg 11/26/2024 Height 65.25 in 11/26/2024 Blood pressure systolic 122 mm Hg 11/26/2024 Weight 138.0 lbs 11/26/2024 BMI 22.79 kg/m2 11/26/2024 Encounters Encounter Location Date Provider Diagnosis [facility] [address] [place], [place] [id number] 03/21/2024 Beba Lam Essential hypertensi on I10 and termite exterminator (current) use of anticoagulants Z79.01 [facility] [address] [place], [place] [id number] 08/26/2024 Beba Lam Essential hypertensi on I10 ; Anxiety disorder, unspecified F41.9 ; Renal infarct N28.0 ; Acute allergic rhinitis J30.9 ; Dyslipidemia E78.5 and BMI 22.0-22.9, adult Z68.22 [facility] [address] [place], [place] [id number] 10/10/2024 Beba Lam Essential hypertensi on I10 ; Situational depression F43.21 ; Renal infarct N28.0 ; USP (current) use of anticoagulants Z79.01 ; Acute allergic rhinitis J30.9 ; Vitamin D deficiency E55.9 and BMI 22.0-22.9, adult Z68.22 [facility] [address] [place], [place] [id number] 11/26/2024 R Jhoan Reyes Right arm weakness R29.898 [facility] [address] [place], [place] [id number] 03/18/2024 Beba Lam Pharyngitis, unspeci fied etiology J02.9 ; Bronchitis J40 and Essential hypertension I10 [facility] [address] [place], [place] [id number] 11/26/2024 Beba Lam [facility] [address] [place], [place] [id number] 12/21/2023 Romana Heath [facility] [address] [place] [id number] 05/20/2024 Beba Lam [facility] [address] [place] [id number] 05/27/2024 Beba Lam [facility] [address] [place] [id number] 07/10/2024 Beba Lam [facility] [address] [place] [id number] 07/30/2024 Beba Lam [facility] [address] [place], [place] [id number] 09/10/2024 eBba Lam Screening for breast cancer Z12.39 [facility] [address] [place] [id number] 09/23/2024 Beba Lam [facility] [address] [place] [id number] 09/27/2024 Beba Lam [facility] [address] [place] [id number] 10/24/2024 Beba Lam Assessments Encounter Date Diagnosis (ICD Code) Assessment Notes Treatment Notes Treatment Clinical Notes Section Notes 03/18/2024 Bronchitis (ICD-10 - J40) 03/18/2024 Pharyngitis, unspecified etiology (ICD-10 - J02.9) 03/21/2024 Essential hypertension (ICD-10 - I10) To ER for evaluation 03/21/2024 USP (current) use of anticoagulants (ICD-10 - Z79.01) 08/26/2024 Essential hypertension (ICD-10 - I10) 08/26/2024 Anxiety disorder, unspecified (ICD-10 - F41.9) 09/10/2024 Screening for breast cancer (ICD-10 - Z12.39) 10/10/2024 Essential hypertension (ICD-10 - I10) 10/10/2024 Situational depression (ICD-10 - F43.21) 11/26/2024 Right arm weakness (ICD-10 - R29.898) 10/10/2024 Renal infarct (ICD-10 - N28.0) 08/26/2024 Renal infarct (ICD-10 - N28.0) 03/18/2024 Essential hypertension (ICD-10 - I10) 08/26/2024 Acute allergic rhinitis (ICD-10 - J30.9) 10/10/2024 USP (current) use of anticoagulants (ICD-10 - Z79.01) 08/26/2024 Dyslipidemia (ICD-10 - E78.5) 10/10/2024 Acute allergic rhinitis (ICD-10 - J30.9) 08/26/2024 BMI 22.0-22.9, adult (ICD-10 - Z68.22) 10/10/2024 Vitamin D deficiency (ICD-10 - E55.9) 10/10/2024 BMI 22.0-22.9, adult (ICD-10 - Z68.22) Plan Of Treatment Pending Test Test Name Order Date CT Scan : Head w/o contrast 11/26/2024 Next Appt Details Provider Name:Beba Singleton er, 02/03/2025 01:00:00 PM, [address], [place], [id number], Insurance Providers Payer Name Payer Address Payer Phone Subscriber Number Group Number Insured Name Patient Relationship to Insured Coverage Start Date Coverage End Date JACQUELIN AN [address] [place] [address] [phone] [id number] FROYLAN DAMICO Self - patient is the insured Medications Administered Medication Instructions Date of Administration Dosage Notes Dexamethasone 12/19/2016 1 mL Dexamethasone 06/27/2023 1 mL vitamin K 03/08/2021 5 mg Medical (General) History Medical History History ICD Code hypertension, ECHO and stress test in asthma allergic rhinitis Restless Leg Syndrome Esophageal reflux 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 Richardson 10/2023 Hospitalization History Reason Date(Month/Year) above surgeries
--- OUTSIDE RECORDS SUMMARY | 2024-11-27 12:30 | XMS_ITS | Encounter Summary ---
Author [facility] Address [address] [place] [address] Care Team Providers Care Manager Land Name Role Phone [place] Lam MD Primary Care Provider [phone] Reason for Visit * Reason Comments Med Refill Encounter Details Date Type Department Care Team (Late st Contact Info) Description 01/12/[address] [facility] NEUROSURGERY [address] [address] Catrachita Rosa PA-C 1760 [place] [address] Social History Tobacco Use Types Packs/Day Years [...] or training? Not on file Preferred Language Slovak 10/23/2023 Comments No Sex and Gender Information Value Date Recorded Sex Assigned at Female 08/22/2024 1:57 PM EDT Legal Sex Female 11:25 AM EDT Gender Identity Not on file Sexual Orientation Straight 08/22/2024 1: 57 PM EDT documented as of this encounter Plan of Treatment Upcoming Encounters Date Type Department Care Team (Late st Contact Info) Description 12/18/2024 11:00 AM EDT Office Visit [facility] NEUR[facility]GERY [address] [facility] [address] [place] [address] Celena, Chetna Rob PA-C 1760 [facility] [address] [place] [address] documented as of this encounter Visit Diagnoses Not on filedocumented in this encounter Care Teams Manager Land Relationship Specialty Start Date End Date [place] Lam MD [facility] [facility] [address] [place] [address] PCP - General Family Medicine 11/25/24 documented as of this encounter
--- OUTSIDE RECORDS SUMMARY | 2024-11-27 12:30 | XMS_ITS | Encounter Summary ---
[facility] Address [address] [place] [address] Care Team Providers Care Icu Registered Nurse Name Role Phone [place] Lam MD Primary Care Provider [phone] Reason for Visit * Reason Comments Med Refill Encounter Details Date Type Department Care Team (Late st Contact Info) Description 05/07/2022 Refill [facility] BARI[facility]RIC SURGERY [address] [place] [address] Ping Martin, MARTHA Social History [...] or training? Not on file Preferred Language Montenegrin 12/23/2021 Comments No Sex and Gender Information [...] Office Visit [facility] NEUROSURGERY 1760 [facility] [address] [place] [address] Chetna Dallas PA-C 1760 [facility] [address] [place] [address] documented as of this encounter Visit Diagnoses Not on filedocumented in this encounter Care Teams Icu Registered Nurse Relationship Specialty Start Date End Date [place] Lam MD 1210 [facility] [address] [facility] [address] [place] [address] PCP - General Family Medicine 11/25/24 documented as of this encounter
== END 2024-11-27 23:59 | disposition home or self-care (01) ==
LOC: RAD 11:28
PROVIDERS: PCP Family Medicine; Visit Provider Family Medicine
DX: J32.4 Chronic pansinusitis (principal); R29.898 Other symptoms and signs involving the musculoskeletal system; R20.0 Anesthesia of skin
CPT/HCPCS: 70450

== ENCOUNTER 2024-12-03 13:32 | Outpatient (CLI) | payer OTHER, SELFPAY ==
--- OUTSIDE RECORDS SUMMARY | 2024-08-26 09:15 | XMS_ITS ---
Author Organization [facility] Address [address] [place] [phone] Care Team Providers Care Fish Checker Name Role Phone Beba Lam Primary Care Provider Allergies Allergen (clinical drug ingredient) Drug/Non Drug [...] 201 Performing Lab: Notes/Report: Test performed by [email or web address], [facility] , [address], [place] [address] Jayden Stone MD, Entry Level Financial Analyst CLIA: [id number] Cholesterol 220 <200 mg/dL Triglycerides 201 <150 [...] W/U Status Risk Notes Problem Allergic rhinitis (16229046) Acute allergic rhinitis (J30.9) Active confirmed Problem Dyslipidemia (453706799) Dyslipidemia (E78.5) Active confirmed Vital Signs Weight 138.0 lbs 08/26/2024 Blood pressure systolic 142 mm Hg 08/27/19 25 Blood pressure diastolic 90 mm Hg 025 Heart Rate 82 /min 08/26/2024 Height 65.25 in 08/26/2024 BMI 22.79 kg/m2 08/26/2024 Encounters Encounter Location Date Provider Diagnosis [facility] [facility] [address] [phone] 08/26/2024 Beba Lam Essential hypertensi on I10 [...] [address], [address], [place], [place], [id number], Progress Notes * SHAMIKA DAMICOJOSHDOB: [birth year] (54 yo F)Acc No.[id number]:08/26/2024 Progress Notes Patient: FROYLAN [place] Provider: Beba Lam M.D. :1970 A ge:53 Y S ex:Female Date:08/26/2024 Address:[place], [id number] Subjective: * Chief Complaints: * 1 . [...] Allergic rhinitis, Restless Leg Syndrome, Esophageal reflux, CIS COORDINATOR - Dr. 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 B VA 22.0-22.9, adult - Z68.22 Plan: * Treatment: [...] * Images: Billing Information: * Visit Code: 86616 Office Visit, Est Pt., Level 4. * Procedure Codes: 30816 CBC WITH AUTO DIFF. 1036F TOBACCO NON-USER. G8420 BMI<30 AND >=22 CALC & DOCU. G8950 PREHTN/HTN BP DOC INDCD F/U DOC. G8753 MOST RECENT SYSTOLIC BP >= 140MM HG. G8755 MOST RECENT DIASTOLIC BP >= 90MM HG. * Electronic signature of Beba Lam MD on 12/03/2024 at 01:34 PM EDT Sign off status: Pending * Provider: Beba Lam M.D. Date: 0 08/26/2024 Generated for Dulce Maria lowry/Apolinar/Ron on: 1 01:34 PM EDT History and Physical Notes * [...]
--- OUTSIDE RECORDS SUMMARY | 2024-10-10 10:15 | XMS_ITS ---
Author Organization [facility] Address [address] [place] [phone] Care Team Providers Care Medical Service Representative Name Role Phone Beba Lam Primary Care Provider Allergies Allergen (clinical drug ingredient) Drug/Non Drug Allergy documented on EMR Reaction Allergy Type Onset Date Status gadobenate Gadobenate Unknown Drug Allergy Activ e morphine Morphine Unknown Drug Allergy Active Results Component Value Reference Range Notes P-Basic Metabolic Panel (BMP ) Reviewed date:10/24/2024 09:04:59 AM Interpretation:Normal Performing Lab: Notes/Report: Test performed by [facility] [address] [place] [address] [place] [address] Jayden Stone MD, Armored Car Guard And Driver CLIA: [id number] Sodium 141 135-145 mmol/L Potassium 4.5 3.5-5.3 mmol/L Chloride 103 97-108 mmol/L CO2 25 20-32 mmol/L Glucose 102 65-99 mg/dL BUN 9 6-20 mg/dL Creatinine 0.64 0.50-1.00 mg/dL Calcium 9.4 8.6-10.4 mg/dL eGFR by Creatinine 104 >59 mL/min/1.73m2 P-Sed Rate (ESR) Reviewed date:10/24/2024 09:04:59 AM Interpretation:Normal Performing Lab: Notes/Report: Test performed by [facility] [address] [place], [place] [address] [address], [place] [address] Jayden Stone MD, Armored Car Guard And Driver CLIA: [id number] Erythrocyte Sedimentation Rate (ESR), Automated 4 <31 mm/hr P-Factor V Leiden Genotyping Reviewed date:10/24/2024 09:04:59 AM Interpretation:Negative Performing Lab: Notes/Report: Test performed by [facility] [address] [place] [address] , [address], [place] [address] Jayden Stone MD, Armored Car Guard And Driver CLIA: [id number] Factor V Mutation NEGATIVE NEGATIVE Factor V Normal Allele (G1691): Present Factor V Mutant Allele (A1691): Not Present Interpretation: This patient is normal (no mutation observed) with respect to the Factor V (Leiden) H5928E mutation. Method: Genomic DNA was isolated from the patient specimen and used in PCR with a Taqman genotyping assay designed to identify the Factor V Leiden mutation ([id number], Transcript NM_000130.4: c.1601G>A, p.[id number]). Diagnostic errors can occur due to rare DNA sequence variants that may interfere with the assay. The results of this test should be interpreted in the context of other clinical or laboratory findings. This test was developed and its performance characteristics determined by [facility] [employer]. It has not been cleared or approved [...] testing. Clinical Utility: The Factor V Leiden (P9226O) mutation is presented in 45% of familial thrombophilia and is the most common genetic risk factor identified in the patients with deep vein thrombosis. Individuals who are heterozygous for the Factor V Leiden mutation have a 5-10 fold increased risk of venous thrombosis, while homozygous individuals have a 50-100 fold increased risk of venous thrombosis. Test performed by [facility], [facility] d/b/a [facility] , [place] [address], Guero Sampson DO, Armored Car Guard And Driver, CLIA# [id number] P-Vitamin D 1,25-Dihydroxy a nd 25-Hydroxy Reviewed date:10/24/2024 09:04:59 AM Interpretation:37 Performing Lab: Notes/Report: Test performed by [facility] [address] [place] [address] , [address], [place] [address] Jayden Stone MD, Armored Car Guard And Driver CLIA: [id number] Vitamin D 25-Hydroxy 37.0 30.0-100.0 ng/mL Interpretation [...] Status Risk Notes Problem Vitamin D deficiency (94326817) Vitamin D deficiency (E55.9) Active confirmed Vital Signs Weight 138.4 lbs 10/10/2024 Blood pressure systolic 130 mm Hg 10/11/19 25 Blood pressure diastolic 90 mm Hg 025 Heart Rate 74 /min 10/10/2024 Height 65.25 in 10/10/2024 BMI 22.85 kg/m2 10/10/2024 Encounters Encounter Location Date Provider Diagnosis [facility] [address] [phone] 10/10/2024 Beba Lam Essential hypertensi on I10 ; Situational depression F43.21 ; Renal infarct N28.0 ; 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 ; Acute allergic rhinitis J30.9 ; Vitamin D deficiency E55.9 and BMI 22.0-22.9, adult Z68.22 Assessments Encounter Date Diagnosis (ICD Code) Assessment Notes Treatment Notes Treatment Clinical Notes Section Notes 10/10/2024 Essential hypertension (ICD-10 - I10) 10/10/2024 Situational depression (ICD-10 - F43.21) 10/10/2024 Renal infarct (ICD-10 - N28.0) 10/10/2024 alf (current) use of anticoagulants (ICD-10 - Z79.01) [...] [address], [place], [place], [phone], Progress Notes * FROYLAN DAMICODOB: [birth year] (54 yo F)Acc No.[id number]:10/10/2024 Progress Notes Patient: FROYLAN WILLIS Provider: Beba Lam M.D. :1970 A ge:53 Y S ex:Female Date:10/10/2024 Address:[place], [id number] Subjective: * Chief Complaints: * 1 . 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 B [place] 22.0-22.9, adult - Z68.22 ? Plan: * [...] * Images: Billing Information: * Visit Code: 09434 Office Visit, Est Pt., Level 4. * Procedure Codes: 1036F TOBACCO NON-USER. 3075F SYST BP GE 130 - 139MM HG. 3080F DIAST BP = 90 MM HG. * Electronic signature of Beba Lam MD on 12/03/2024 at 01:35 PM EDT Sign off status: Pending * Provider: Beba Lam M.D. Date: 0 10/10/2024 Generated for Dulce Maria lowry/Apolinar/eTransmitting on: 1 01:35 PM EDT History and Physical Notes * [...]
--- OUTSIDE RECORDS SUMMARY | 2024-11-01 05:00 | XMS_ITS ---
Author Organization [facility] Address 1210 [facility] 36 [facility] [address] [place] [id number] Care Team Providers Care Funeral Service Apprentice Name Role Phone Beba Lam Primary Care Provider [phone] Romana Heath [phone] Allergies Allergen (clinical drug ingredient) Drug/Non Drug Allergy documented on EMR Reaction Allergy Type Onset Date Status gadobenate Gadobenate Unknown Drug Allergy Activ e morphine Morphine Unknown Drug Allergy Active REASON FOR VISIT sinus infection Encounters Encounter Location Date Provider Diagnosis [facility] 36 [facility] [address] [place] [id number] 11/01/2024 Romana Heath Plan Of Treatment Next Appt Details Provider Name:Beba Singleton er, 02/03/2025 01:00:00 PM, 1210 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
--- OUTSIDE RECORDS SUMMARY | 2024-11-25 11:08 | XMS_ITS | Encounter Summary ---
Author Organization [facility] Address [address] [place] [id number] Care Team Providers Care Reservations Manager Name Role Phone [place] Lam MD Primary Care Provider [phone] Reason for Visit * Diagnostic Imaging (Emergency) - Closed Specialty Diagnoses / Procedures Referred By Shane t Referred To Contact Radiology Diagnoses Cervical spondylosis with myelopathy S/P cervical spinal fusion Procedures XR Spine Cervical 2 View Chetna Dallas PA-C [address] [place] [address] Phone: tel: fax: Referral ID Status Reason Start Date Expiration Date Visits Re quested Visits Authorized [id number] Closed 08/23/2024 11/22/2025 1 1 Encounter Details Date Type Department Care Team (Late st Contact Info) Description 11/25/2024 11:08 AM EDT - 11/25/2024 11:59 PM EDT Hospital Encounter [facility] XRAY [address] [place] [address] Chetna Dallas PA-C [address] [place] [address] Discharge Disposition: Home or Self Care Social [...] or training? Not on file Preferred Language Georgian 10/23/2023 Comments No Sex and Gender Information [...] Take 1 tablet by mouth Daily. 06/12/2024 TiZANidine (ZANAFLEX) 4 MG capsule TAKE 1 CAPSULE BY MOUTH 3 (THREE) TIMES A DAY NEEDED FOR MUSCLE SPASMS. 45 capsule 1 10/29/2024 venlafaxine (EFFEXOR) 75 MG tablet Every 12 (Twelve) Hours. Xarelto 20 MG tablet Take 1 tablet by mouth Daily With Dinner. Pt to hold 2 days prior to procedure per Dr. Walter 11/09/2023 documented as of this encounter Plan of Treatment Upcoming Encounters Date Type Department Care Team (Late st Contact Info) Description 12/18/2024 11:00 AM EDT Office Visit [facility] NE[facility] [address] [phone] Apro, Chetna Rob PA-C [address] [address] documented as of this encounter Goals Goal Patient Goal Type Associated Problems Recent Progress Patient-Stated? Author Autogenerat ed Goal Care Plan Autogenerated Problem No Abilio Leon MD documented as of this encounter Procedures Procedure Name Priority Date/Time Associated Diagnosis Comments XR SPINE CERVICAL 2 VW STAT 11/25/2024 11:26 AM EDT Cervical spondylosis with myelopathy S/P cervical spinal fusion documented in this encounter Results * XR Spine Cervical 2 View (11/25/2024 11:26 AM EDT) Anatomical Region Laterality Modality Spine, C-spine N/A Radiographic Lianna ging 11/25/2024 11:5 8 AM EDT Impressions 11/25/2024 12:01 PM EDT Impression: Status post C3-C5 ACDF with disc spacers. Unchanged retrolisthesis of C3 on C4 and C4 on C5. Electronically Signed: Alex Cheng MD 11/25/2024 12:01 PM EDT Workstation ID: [id number] Narrative 11/25/2024 12:01 PM EDT XR SPINE CERVICAL 2 VW Date of Exam: 11/25/2024 11:19 AM EDT Indication: s/p cervical fusion. Comparison: 08/23/2024 Findings: Status post C3-C5 ACDF with disc spacers. There is 2 mm of retrolisthesis of C3 on C4 and 5 mm of retrolisthesis of C4 on C5. These are unchanged compared to the prior exam. Multilevel facet arthropathy. No prevertebral soft tissue swelling is identified. Bone mineralization is normal. Procedure Note Alex Cheng MD - 11/25/2024 XR SPINE CERVICAL 2 VW Date of Exam: 11/25/2024 11:19 AM EDT Indication: s/p cervical fusion. Comparison: 08/23/2024 Findings: Status post C3-C5 ACDF with disc spacers. There is 2 mm of retrolisthesisof C3 on C4 and 5 mm of retrolisthesis of C4 on C5. These are unchangedcompared to the prior exam. Multilevel facet arthropathy. No prevertebralsoft tissue swelling is identified. Bone mineralization is normal. IMPRESSION: Impression: Status post C3-C5 ACDF with disc spacers. Unchanged retrolisthesis of C3 on C4 and C4 on C5. Electronically Signed: Alex Cheng MD 11/25/2024 12:01 PM EDT Workstation ID: [id number] [facility] Apro PA-C IMG DIAGNOSTIC IMAGING ORDERABLES Final Result documented in this encounter Visit Diagnoses Not on filedocumented in this encounter Additional Health Concerns Active Problems Noted Date Diagnosed Date Autogenerated Problem 08/30/2024 documented as of this encounter Care Teams Reservations Manager Relationship Specialty Start Date End Date [place] Lam MD [facility] [place] [facility] [address] [place] [address] PCP - General Family Medicine 11/25/24 documented as of this encounter
--- OUTSIDE RECORDS SUMMARY | 2024-11-26 11:15 | XMS_ITS ---
Author Organization [facility] Address [address] [facility] [address] [place] [id number] Care Team Providers Care Rn Placement Name Role Phone Beba Lam Primary Care Provider [phone] Darcy Reyes [phone] Allergies Allergen (clinical drug ingredient) Drug/Non Drug Allergy documented on EMR Reaction Allergy Type Onset Date Status gadobenate Gadobenate Unknown Drug Allergy Activ e morphine Morphine Unknown Drug Allergy Active Results Component Value Reference Range Notes CT Scan : Head w/o contrast (Not yet reviewed by provider) Interpretation:nothing acute, chronic pansinusitis Performing Lab: Notes/Report: nothing acute, chronic pansinusitis REASON FOR VISIT numbness in right arm Medications Medication SIG (Take, Route, Frequency, Duration) Notes Start Date End Date Status Xarelto 20 MG 1 tab(s) orally once a day (in the evening); Duration: 30 day(s) Active ALPRAZolam 1 MG 1/2 tab by mouth in the morning, 1/2 tab in the afternoon, and 1 tab at bedtime Orally as directed; Duration: 30 day(s) 09/24/2024 Active Loratadine 10 MG 1 tablet Orally Once a day; Duration: 30 day(s) Active Montelukast Sodium 10 [...] BY MOUTH EVERY DAY; Duration: 90 Active rOPINIRole HCl 2 MG TAKE 1 TABLET BY DEVON TH EVERY DAY; Duration: 90 Active Bisoprolol-hydroCHLOROthiaz melania 10-6.25 MG 1 tab(s) orally once a day; Duration: 30 day(s) Active Danette Allergy 180 MG 1 tablet Swallow whole with water; do not take with fruit juices. Orally Once a day Active Vital Signs Weight 138.0 lbs 11/26/2024 Blood pressure systolic 122 mm Hg 11/27/19 25 Blood pressure diastolic 80 mm Hg 025 Heart Rate 62 /min 11/26/2024 Height 65.25 in 11/26/2024 BMI 22.79 kg/m2 11/26/2024 Encounters Encounter Location Date Provider Diagnosis [facility] [address] [facility] 36 [facility] [address] [place], [place] [id number] 11/26/2024 Darcy Reyes Right arm weakness R29.898 Assessments Encounter Date Diagnosis (ICD Code) Assessment Notes Treatment Notes Treatment Clinical Notes Section Notes 11/26/2024 Right arm weakness (ICD-10 - R29.898) Plan Of Treatment Pending Test Test Name Order Date CT Scan : Head w/o contrast 11/26/2024 Next Appt Details Follow Up: via phone to repo rt test results, Reason: Provider Name:Beba Singleton er, 02/03/2025 01:00:00 PM, [address] [facility] 36 [facility], [address], [place], [place], [id number], Progress Notes * FROYLAN DAMICODOB: [birth year] (54 yo F)Acc No.[id number]:11/26/2024 Progress Notes Patient: FROYLAN WILLIS Provider: Darcy Reyes M.D. :1970 A ge:54 Y S ex:Female Date:11/26/2024 Address[place], [id number] Pcp:Beba Lam Subjective: * Chief Complaints: * 1 . Numbness in right arm. * ROS: D ERMATOLOGY: no R donnell. n o H sabrina. G ASTROENTEROLOGY: no N ausea. n o V omiting. n o D iarrhea.? U ROLOGY: no D ifficulty urinating. n o B lood in urine. * Medical History: h ypertension, ECHO and stress test in 2017, Asthma, Allergic rhinitis, Restless Leg Syndrome, Esophageal reflux, OVERLOCKER - Dr. Padgett, Shingrix 2 shot, 2019, [...] . Alcohol: No. * Medications: T aking Danette Allergy 180 MG Tablet 1 tablet Swallow whole with water; do not take with fruit juices. Orally Once a day , Taking Bisoprolol-hydroCHLOROthiazide 10- 6.25 MG Tablet 1 tab(s) orally once a day , Taking rOPINIRole HCl 2 MG Tablet TAKE 1 TABLET BY MOUTH EVERY DAY , Taking Rosuvastatin Calcium 20 MG Tablet [...] once a day (in the evening) , Taking Montelukast Sodium 10 MG Tablet 1 tablet Orally Once a day , Taking Loratadine 10 MG Tablet 1 tablet Orally Once a day , Discontinued Fluticasone Propionate 50 MCG/ACT Suspension 1 spray in each nostril Nasally Twice a day , Discontinued Aspirin 81 MG Tablet Chewable 1 tablet Orally Once a day , Medication List reviewed and reconciled with the patient * Allergies: M orphine, Gadobenate. Objective: * Vitals: W t: 138.0, Temp: 98.0, BP: 122/80, HR: 62, O2 Sat: 97% on RA, Nurse: pe, Ht: 65.25, BMI:22.79. * Examination: G eneral Examination: General Appearance: N AD. N pavan: s upple, no lymphadenopathy, no carotid bruits. H eart: R SR. L ungs: c lear to auscultation. N eurologic Exam: C ranial nerves II through XII are intact. There is subtle weakness of the right upper extremity compared to the left. Finger-nose testing is normal.. ? Assessment: * Assessment: 1. R ight arm weakness - R29.898 (Primary) Plan: * Treatment: * Procedure Codes: 1 036F TOBACCO NON-USER, 3074F SYST BP LT 130 MM HG, 3079F DIAST BP 80-89 MM HG * Follow Up: v ia phone to report test results * Images: Billing Information: * Visit Code: 11331 Office Visit, Est Pt., Level 3. * Procedure Codes: 1036F TOBACCO NON-USER. 3074F SYST BP LT 130 MM HG. 3079F DIAST BP 80-89 MM HG. * Electronic signature of Darcy Reyes MD on 12/03/2024 at 01:35 PM EDT Sign off status: Pending * Provider: Darcy Reyes M.D. Date: 0 11/26/2024 Generated for Dulce Maria lowry/Apolinar/eTjohnnysmitting on: 1 01:35 PM EDT History and Physical Notes * Examination Category Sub-Category Detail Notes Category Not es General Examination Heart: RSR Lungs: clear to auscultatio n General Appearance: NAD Neurologic Exam: Cranial nerves II th rough XII are intact. There is subtle weakness of the right upper extremity compared to the left. Finger-nose testing is normal. Neck: supple, no lymphaden opathy, no carotid bruits
--- NOTE | 2024-12-03 | CA_ITS ---
FINAL REPORT TECHNIQUE: De La Cruz scale, color and spectral doppler images of the bilateral carotid arteries were obtained. CLINICAL HISTORY: abn CT, HTN, HLD, Ex-smoker FINDINGS: Peak systolic velocity in the right internal carotid artery is 100 cm/sec. The internal carotid to common carotid artery ratio is 1.2. There is no significant carotid artery stenosis and no significant plaque formation. The right vertebral artery is normal in direction. Peak systolic velocity in the left internal carotid artery is 106 cm/sec. The internal carotid to common carotid artery ratio is 1.2. There is no significant carotid artery stenosis and no significant plaque formation. The left vertebral artery is normal in direction. IMPRESSION: No ultrasound evidence of hemodynamically significant carotid artery stenosis. Normal peak systolic velocities and normal internal to common carotid artery ratios bilaterally. Reviewed, Interpreted and Dictated by Karol Montalvo MD Transcribed by Giulia Rubi Authenticated and [facility]
--- OUTSIDE RECORDS SUMMARY | 2024-12-03 13:35 | XMS_ITS | Encounter Summary ---
[facility] Address [address] [place] [id number] Care Team Providers Care Global Supply Chain Vice President Name Role Phone Chetna [place] PA-C Primary Care Provider Reason for Visit * Reason Comments Med Refill Encounter Details Date Type Department Care Team (Late st Contact Info) Description 10/28/2024 Refill [facility] NEUROSURGERY [address] [address] Chetna Dallas PA-C [address] [place], [place] [id number] Social History Tobacco Use Types Packs/Day Years [...] or training? Not on file Preferred Language Kiswahili 10/23/2023 Comments No Sex and Gender Information Value Date Recorded Sex Assigned at Female 08/22/2024 1:57 PM EDT Legal Sex Female 11:25 AM EDT Gender Identity Not on file Sexual Orientation Straight 08/22/2024 1: 57 PM EDT documented as of this encounter Plan of Treatment Upcoming Encounters Date Type Department Care Team (Late st Contact Info) Description 12/18/2024 11:00 AM EDT Office Visit [facility] NEUR[facility] 1760 [facility] [address] [place] [address] Chetna Dallas PA-C [address] [address] documented as of this encounter Goals Goal Patient Goal Type Associated Problems Recent Progress Patient-Stated? Author Autogenerat ed Goal Care Plan Autogenerated Problem No Abilio Leon MD documented as of this encounter Visit Diagnoses Not on filedocumented in this encounter Additional Health Concerns Active Problems Noted Date Diagnosed Date Autogenerated Problem 08/30/2024 documented as of this encounter Care Teams Global Supply Chain Vice President Relationship Specialty Start Date End Date Chetna Dallas PA-C 1760 [facility] [address] [place] [address] PCP - General Physician Fingerprint Expert 08/23/24 11/24/24 documented as of this encounter
--- OUTSIDE RECORDS SUMMARY | 2024-12-03 13:35 | XMS_ITS | Clinical Summary ---
Author Organization [facility] Address [address] [place] [address] Care Team Providers Care Supervisor Metal Fabricating Name Role Phone Dallas Lam MD Primary Care Provider [phone] [phone] Allergies Active Allergy Reactions Criticality Noted Date [...] the afternoon, and 1 tab at bedtime 2 Active rOPINIRole (REQUIP) 2 MG tablet Take 1 tablet by mouth Every Night. 2 Active montelukast (SINGULAIR) 10 MG tablet Take 1 tablet by mouth Every Night. Active QUEtiapine (SEROquel) 100 MG tablet Take 0.5 tablets by mouth At Night As Needed. Active budesonide-form oterol (SYMBICORT) 160-4.5 MCG/ACT inhaler Inhale 2 puffs 2 (Two) Times a Day. Active bisoprolol-hydr ochlorothiazide (ZIAC) 10-6.25 MG per tablet Take 1 tablet by mouth Daily. 2 Active Xarelto 20 MG tablet Take 1 tablet by mouth Daily With Dinner. Pt to hold 2 days prior to procedure per Dr. Walter 4 Active losartan (COZAAR) 25 MG tablet Take 1 tablet by mouth Daily. Active venlafaxine (EFFEXOR) 75 MG tablet Every 12 (Twelve) Hours. Active rosuvastatin (CRESTOR) 20 MG tablet Take 1 tablet by mouth Daily. 5 Active TiZANidine (ZANAFLEX) 4 MG capsule TAKE 1 CAPSULE BY MOUTH 3 (THREE) TIMES A DAY NEEDED FOR MUSCLE SPASMS. 45 capsule 1 5 Active Active Problems Problem Noted Date Diagnosed Date [...] (12/09/2021): Added automatically from request for surgery [id number] Encounters Date Type Department Care Team Description 11/25/2024 11:08 AM EDT - 11/25/2024 11:59 PM EDT Hospital Encounter [facility] XRAY [address] [place] [phone] Chetna Dallas PA-C Discharge Disposition: Home or Self Care 11/25/2024 Travel 10/28/2024 Refill [facility] NEUROSURGERY [address] [place] [address] Chetna Dallas PA-C 09/23/2024 Refill [facility] [address] [address] [place] [address] Chetna Dallas PA-C from Last 3 Months Family History Medical History Relation Name Comments Arthritis Father Jose Luis alfonso Asthma Father Jose Luis alfonso COPD Father Jose Luis alfonso Cancer Father Jose Luis alfonso Diabetes Father Jose Luis alfonso Heart disease Father Jose Luis alfonso Hyperlipidemia Father Jose Luis alfonso Hypertension [...] or training? Not on file Preferred Language Bulgarian 10/23/2023 Comments No Sex and Gender Information [...] 12/18/2024 11:00 AM EDT Office Visit [facility] NEUROSURGERY [address] [id number] Apro, Chetna Rob PA-C [address] [address] Health Maintenance Due Date Last Done Comments [...] Leon MD Medical Devices Implanted Type Area Matching Machine Operator Device Identifier Shelf Expiration Date Model / Serial / Lot Loop Recorder Implant Dev Cls Wnd Vloc/Pbt Melissa Nonabs 1/2cir Sz2/0 26mm 30cm Kalia - [id number] Implanted:Qt y: 3 on 12/29/2021 by Luis Bowen MD at [facility] Implant N/A: Stomach COVIDIEN 05/27/2024 [id number] / / [id number] Dev Cls Wnd Vloc/Pbt Melissa Nonabs 1/2cir Sz2/0 26mm 15cm Kalia - [id number] Implanted:Qt y: 1 on 12/29/2021 by Luis Bowen MD at [facility] Implant N/A: Abdomen COVIDIEN 05/27/2024 [id number] / / [id number] Bone Lordotic Asr [id number] Fzd - [id number] - [id number] Implanted:Qt y: 1 on 11/03/2023 by Abilio Leon MD at [facility] Implant N/A: Spine Cervical [employer] 02/16/2026 [id number] / [id number] / [id number] Plt Acp Zevo 34rjl1vw Ns - [id number] Implanted:Qt y: 1 on 11/03/2023 by Abilio Leon MD at [facility] Implant N/A: Spine Cervical [employer] [id number] / / NA Scrw St Zevo 2thrd S/Tap 3.5x13mm - [id number] Implanted:Qt y: 6 on 11/03/2023 by Abilio Leon MD at [facility] Implant N/A: Spine Cervical [employer] [id number] / / NA Clip Ligat Vasc Horizon Ti Sm Yel 6ct - [id number] Implanted:Qt y: 1 on 11/03/2023 by Abilio Leon MD at [facility] Implant N/A: Spine Cervical TELE[employer]LEX MEDICAL 12/27/2027 [id number] / / [id number] Clip Ligat Vasc Horizon Ti Kalia 6ct - [id number] Implanted:Qt y: 1 on 11/03/2023 by Abilio Leon MD at [facility] Implant N/A: Spine Cervical TELEFLEX MEDICAL 07/02/2028 [id number] / / [id number] Hemost Abs Surgifoam Sz100 8x12 10mm - [id number] Implanted:Qt y: 1 on 11/03/2023 by Abilio Leon MD at [facility] Implant N/A: Spine Cervical [employer] J AND J [id number] 06/29/2027 [id number] / / [id number] Kt Seal Hemos Abs Floseal Matrx Fast/Prep 10ml - [id number] Implanted:Qt y: 1 on 11/03/2023 by Abilio Leon MD at [facility] Implant N/A: Spine Cervical [facility] [id number] 07/31/2024 [id number] / / [id number] Wax Bone Hemo Lukens Sharpoint 2.5gm Wht - [id number] Implanted:Qt y: 1 on 11/03/2023 by Abilio Leon MD at [facility] Implant N/A: Spine Cervical [employer] MARNI 901 / / Bone Lordotic Asr [id number] d - [id number] - [id number] Implanted:Qt y: 1 on 11/03/2023 by Abilio Leon MD at [facility] Implant N/A: Spine Cervical [employer] 04/13/2026 [id number] / [id number] / [id number] Procedures Procedure Name Priority Date/Time Associated Diagnosis [...] MD 11/25/2024 12:01 PM EDT Workstation ID: [id number] Narrative 11/25/2024 12:01 PM EDT XR SPINE [...] MD 11/25/2024 12:01 PM EDT Workstation ID: [id number] Chetna Dallas PA-C IMG DIAGNOSTIC IMAGING ORDERABLES [...] 12:0 7 PM EDT 07/21/[address] [facility] (AM[facility]UL[facility]ORY) - 07/22/2021 1:08 PM EDT Performed at: 01 - [facility] [id number] Cigar Sorter: Bonifacio Yates PhD, Phone: [phone] Patient Fasting: N Ping Martin PA-C LAB BLOOD ORDERABLES Final Result [facility] [address] [place] [address], [place] [phone] [facility] [address] [place] [id number], [place] [phone] from Last 3 Months or Most Recently Relevant to Health Maintenance Additional Health Concerns Active Problems Noted Date Diagnosed Date Autogenerated Problem 08/30/2024 Insurance JACQUELIN FERNANDO HMO Advance Directives * CPR (Attempt to [...] Release to patient: Routine Release Care Teams Supervisor Metal Fabricating Relationship Specialty Start Date End Date Dallas Lam MD [address] [facility] [address] [facility] [address] [place] [address] PCP - General Family Medicine 11/25/24
--- OUTSIDE RECORDS SUMMARY | 2024-12-03 13:35 | XMS_ITS | Encounter Summary ---
Author Organization [facility] Address [address] [place] [address] Care Team Providers Care Vamp Strap Ironer Name Role Phone Dallas Lam MD Primary Care Provider [phone] Encounter Details Date Type Department Care Team [...] or training? Not on file Preferred Language Lao 10/23/2023 Comments No Sex and Gender Information Value Date Recorded Sex Assigned at Female 08/22/2024 1:57 PM EDT Legal Sex Female 11:25 AM EDT Gender Identity Not on file Sexual Orientation Straight 08/22/2024 1: 57 PM EDT documented as of this encounter Plan of Treatment Upcoming Encounters Date Type Department Care Team (Late st Contact Info) Description 12/18/2024 11:00 AM EDT Office Visit [facility] NEUROSURGERY [address] [place] [address] Celena, Chetna Rob PA-C [address]60 [facility] [address] [place] [address] documented as of this encounter Goals Goal Patient Goal Type Associated Problems Recent Progress Patient-Stated? Author Autogenerat ed Goal Care Plan Autogenerated Problem No Abilio Leon MD documented as of this encounter Visit Diagnoses Not on filedocumented in this encounter Additional Health Concerns Active Problems Noted Date Diagnosed Date Autogenerated Problem 08/30/2024 documented as of this encounter Care Teams Vamp Strap Ironer Relationship Specialty Start Date End Date Dallas Lam MD [address] [facility] [address] [place] [address] PCP - General Family Medicine 11/25/24 documented as of this encounter
--- OUTSIDE RECORDS SUMMARY | 2024-12-03 13:36 | XMS_ITS | Patient Health Record ---
[facility] [address] [place] [id number] Care Team Providers Care Physical Geographer Name Role Phone Beba Lam Primary Care Provider Darcy Reyes Unavailable [phone] Romana Heath Unavailable [phone] Allergies Allergen (clinical drug ingredient) Drug/Non Drug [...] 201 Performing Lab: Notes/Report: Test performed by [facility], [facility] [address] [place] [address] , [address], [place] [address] Jayden Stone MD, Bridge T[facility] CLIA: [id number] Cholesterol 220 <200 mg/dL Triglycerides 201 <150 [...] Interpretation:Normal Performing Lab: Notes/Report: Test performed by [facility], [address] , [address], [place] [address] Jayden Stone MD, Bridge Tender CLIA: [id number] Sodium 141 135-145 mmol/L Potassium 4.5 3.5-5.3 mmol/L Chloride 103 97-108 mmol/L CO2 25 20-32 mmol/L Glucose 102 65-99 mg/dL BUN 9 6-20 mg/dL Creatinine 0.64 0.50-1.00 mg/dL Calcium 9.4 8.6-10.4 mg/dL eGFR by Creatinine 104 >59 mL/min/1.73m2 P-Sed Rate (ESR) Reviewed date:10/24/2024 09:04:59 AM Interpretation:Normal Performing Lab: Notes/Report: Test performed by [facility] [address] [place], [place] [address] [facility] [place] [address], [place] [address] Jayden Stone MD, Bridge Tender CLIA: [id number] Erythrocyte Sedimentation Rate (ESR), Automated 4 <31 mm/hr P-Factor V Leiden Genotyping Reviewed date:10/24/2024 09:04:59 AM Interpretation:Negative Performing Lab: Notes/Report: Test performed by [facility] [address] , Keisha [address], [place] [address] Jayden Stone MD, Bridge Tender CLIA: [id number] Factor V Mutation NEGATIVE NEGATIVE Factor V Normal Allele (G1691): Present Factor V Mutant Allele (A1691): Not Present Interpretation: This patient is normal (no mutation observed) with respect to the Factor V (Leiden) H9415C mutation. Method: Genomic DNA was isolated from the patient specimen and used in PCR with a Taqman genotyping assay designed to identify the Factor V Leiden mutation (qy1405, Transcript NM_[id number]: c.1601G>A, p.Fjc442Zea). Diagnostic errors can occur due to rare DNA sequence variants that may interfere with the assay. The results of this test should be interpreted in the context of other clinical or laboratory findings. This test was developed and its performance characteristics determined by [employer]. It has not been cleared or approved [...] testing. Clinical Utility: The Factor V Leiden (J4724V) mutation is presented in 45% of familial thrombophilia and is the most common genetic risk factor identified in the patients with deep vein thrombosis. Individuals who are heterozygous for the Factor V Leiden mutation have a 5-10 fold increased risk of venous thrombosis, while homozygous individuals have a 50-100 fold increased risk of venous thrombosis. Test performed by [facility], [facility] d/b/a [address] , [address], [place] [address], Guero Sampson DO, Bridge Tender, CLIA# [id number] P-Vitamin D 1,25-Dihydroxy a nd 25-Hydroxy Reviewed date:10/24/2024 09:04:59 AM Interpretation:37 Performing Lab: Notes/Report: Test performed by [facility] [address] , [address], [place] [address] Jayden Stone MD, Bridge Tender CLIA: [id number] Vitamin D 25-Hydroxy 37.0 30.0-100.0 ng/mL Interpretation of Vitamin D 25 OH: < 20 ng/mL - Deficiency 20 - 29 ng/mL - Insufficiency 30 - 100 ng/mL - Sufficiency > 100 ng/mL - Super-therapeutic- toxicity may occur above this level. Clinical correlation required. Vitamin D, 1, 25 Dihydroxy 61.0 19.9-79.3 pg/m L CT Scan : Head w/o contrast (Not yet reviewed by provider) Interpretation:nothing acute, chronic pansinusitis Performing Lab: Notes/Report: nothing acute, chronic pansinusitis Mammogram Reviewed date:10/22/2024 09:08:57 AM Interpretation:Negative Performing [...] Acute allergic rhini tis (J30.9) Referral Organization [facility] Referring Provider First Name Beab Howard Referring Provider Last Name Genaro Referring [...] BY MOUTH EVERY DAY; Duration: 90 Active Medrol 4 MG as directed Orally 11/28/2024 Active rOPINIRole HCl 2 MG TAKE 1 [...] Status W/U Status Risk Notes Problem Hyperglycemia (25340369) Hyperglycemia (R73.9) Active confirmed Problem Vitamin D deficiency (54745340) Vitamin D deficiency (E55.9) Active confirmed Problem Essential hypertension (59387936) Essential hypertension (I10) Active confirmed Problem Restless legs syndrome (60438660) Restless leg syndrome (G25.81) Active confirmed Problem Generalized anxiety disorder (81950609) Generalized anxiety disorder (F41.1) Active confirmed Problem Anxiety disorder (070660521) Anxiety disorder, unspecified (F41.9) Active confirmed Problem Long-term current use of anticoagulant (076214247) custodial (current) use of anticoagulants (Z79.01) Active confirmed Problem Reactive depression (situational) (51175054) Situational depression (F43.21) Active confirmed Problem Sleep disturbance (60777790) Sleep disturbance (G47.9) Active confirmed Problem Gastroesophageal reflux disease (802885136) Gastroesophageal reflux disease, esophagitis presence not specified (K21.9) Active confirmed Problem Insomnia (605041187) Insomnia, unspecified type (G47.00) Active confirmed Problem Hyperlipidaemia (47588919) Hyperlipidemia, unspecified hyperlipidemia type (E78.5) Active confirmed Problem Dyslipidemia (034971078) Dyslipidemia (E78.5) Active confirmed Problem Menopause (781059882) Perimenopausal symptoms (N95.1) Active confirmed Problem Anxiety depression (113210449) Anxiety with depression (F41.8) Active confirmed Problem Fibrocystic breast changes (78784041) Fibrocystic breast disease (FCBD), unspecified laterality (N60.19) Active confirmed Problem Allergic rhinitis (88791724) Acute allergic rhinitis (J30.9) Active confirmed Problem Renal infarct (69243237) Renal infarct (N28.0) Active confirmed Problem Stricture of artery (68869721) 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) Active confirmed Vital Signs Heart Rate 62 /min 11/26/2024 Blood pressure diastolic 80 mm Hg 11/26/2024 Height 65.25 in 11/26/2024 Blood pressure systolic 122 mm Hg 11/26/2024 Weight 138.0 lbs 11/26/2024 BMI 22.79 kg/m2 11/26/2024 Encounters Encounter Location Date Provider Diagnosis [facility] [address] [facility] [address] [place], [place] [id number] 03/21/2024 Beba Lam Essential hypertensi on I10 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 Z79.01 [facility] [address] [facility] [address] [place], [place] [id number] 08/26/2024 Beba Lam Essential hypertensi on I10 ; Anxiety disorder, unspecified F41.9 ; Renal infarct N28.0 ; Acute allergic rhinitis J30.9 ; Dyslipidemia E78.5 and BMI 22.0-22.9, adult Z68.22 [facility] [address] [place], [place] [id number] 10/10/2024 Beba Lam Essential hypertensi on I10 ; Situational depression F43.21 ; Renal infarct N28.0 ; exterminator helper (current) use of anticoagulants Z79.01 ; Acute allergic rhinitis J30.9 ; Vitamin D deficiency E55.9 and BMI 22.0-22.9, adult Z68.22 [facility] [address] [place], [place] [id number] 11/26/2024 R Jhoan Reyes Right arm weakness R29.898 [facility] [address] [place], [place] [id number] 03/18/2024 Beba Lam Pharyngitis, unspeci fied etiology J02.9 ; Bronchitis J40 and Essential hypertension I10 [facility] [address] [place], [place] [id number] 12/21/2023 Romana Heath [facility] [address] [place], [place] [id number] 05/20/2024 Beba Lam [facility] [address] [place] [id number] 05/27/2024 Beba Lam [facility] [address] [place], [place] [id number] 07/10/2024 Beba Lam [facility] [address] [place], [place] [id number] 07/30/2024 Beba Lam [facility] [address] [place], [place] [id number] 09/10/2024 Beba Lam Screening for breast cancer Z12.39 [facility] [address] [place], [place] [id number] 09/23/2024 Beba Lam [facility] [address] [place] [id number] 09/27/2024 Beba Lam [facility] [address] [place] [id number] 10/24/2024 Beba Lam [facility] [address] [place] [id number] 11/26/2024 Darcy Staples Eric Assessments Encounter Date Diagnosis (ICD Code) Assessment Notes Treatment Notes Treatment Clinical Notes Section Notes 03/18/2024 Bronchitis (ICD-10 - J40) 03/18/2024 Pharyngitis, unspecified etiology (ICD-10 - J02.9) 03/21/2024 Essential hypertension (ICD-10 - I10) To ER for evaluation 03/21/2024 custodial (current) use of anticoagulants (ICD-10 - Z79.01) [...] Acute allergic rhinitis (ICD-10 - J30.9) 10/10/2024 custodial (current) use of anticoagulants (ICD-10 - Z79.01) 08/26/2024 Dyslipidemia (ICD-10 - E78.5) 10/10/2024 Acute allergic rhinitis (ICD-10 - J30.9) 08/26/2024 BMI 22.0-22.9, adult (ICD-10 - Z68.22) 10/10/2024 Vitamin D deficiency (ICD-10 - E55.9) 10/10/2024 BMI 22.0-22.9, adult (ICD-10 - Z68.22) Plan Of Treatment Pending Test Test Name Order Date Ultrasound : Carotids 11/29/2024 CT Scan : Head w/o contrast 11/26/2024 Next Appt Details Provider Name:Beba Singleton er, 02/03/2025 01:00:00 PM, [address], [place], [id number], Insurance Providers Payer Name Payer Address Payer Phone Subscriber Number Group Number Insured Name Patient Relationship to Insured Coverage Start Date Coverage End Date [employer] [address] [place] [address] [id number] FROYLAN DAMICO Self - patient is the insured Medications Administered Medication Instructions Date of Administration Dosage Notes Dexamethasone 12/19/2016 1 mL Dexamethasone 06/27/2023 1 mL vitamin K 03/08/2021 5 mg Medical (General) History Medical History History ICD Code hypertension, ECHO and stress test in 20 17 asthma allergic rhinitis Restless Leg Syndrome Esophageal reflux 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 Richardson 10/2023 Hospitalization History Reason Date(Month/Year) above surgeries
--- OUTSIDE RECORDS SUMMARY | 2024-12-03 13:36 | XMS_ITS | Encounter Summary ---
[facility] Organization [facility] Address [address] [place] [address] Care Team Providers Care Textile Screen Maker Name Role Phone Dallas Lam MD Primary Care Provider [phone] [phone] Reason for Visit * Reason Comments Med Refill Encounter Details Date Type Department Care Team (Late st Contact Info) Description 05/07/2022 Refill [facility] BARIATRIC SURGERY [address] [place] [address] Ping Martin, MARTHA Social History [...] or training? Not on file Preferred Language Kosovan 12/23/2021 Comments No Sex and Gender Information Value Date Recorded Sex Assigned at Female 08/22/2024 1:57 PM EDT Legal Sex Female 11:25 AM EDT Gender Identity Not on file Sexual Orientation Straight 08/22/2024 1: 57 PM EDT documented as of this encounter Plan of Treatment Upcoming Encounters Date Type Department Care Team (Late st Contact Info) Description 12/18/2024 11:00 AM EDT Office Visit [facility] NE[facility] [address] [facility] [address] [place] [address] Chetna Dallas PA-C 1760 [facility] [address] [place] [address] documented as of this encounter Visit Diagnoses Not on filedocumented in this encounter Care Teams Textile Screen Maker Relationship Specialty Start Date End Date Dallas Lam MD 1210 [facility] [address] [facility] [address] [place] [address] PCP - General Family Medicine 11/25/24 documented as of this encounter
--- OUTSIDE RECORDS SUMMARY | 2024-12-03 13:36 | XMS_ITS | Encounter Summary ---
[facility] [address] [place] [id number] Care Team Providers Care Separator Tender Name Role Phone Dallas Lam MD Primary Care Provider [phone] Reason for Visit * Reason Comments Med Refill Encounter Details Date Type Department Care Team (Late st Contact Info) Description 01/12/2024 Refill [facility] NEUROSURGERY [address] [address] Catrachita Rosa PA-C [address] [place] [address] Social History Tobacco Use Types Packs/Day Years [...] Description 12/18/2024 11:00 AM EDT Office Visit [facility] NEUROS[facility]GERY [address]60 [facility] [address] [place] [address] Celena, Chetna Rob PA-C 1760 [facility] [address] [place] [address] documented as of this encounter Visit Diagnoses Not on filedocumented in this encounter Care Teams Separator Tender Relationship Specialty Start Date End Date Dallas Lam MD 1210 [facility] [address] [place] [address] PCP - General Family Medicine 11/25/24 documented as of this encounter
--- OUTSIDE RECORDS SUMMARY | 2024-12-03 13:36 | XMS_ITS | Patient Health Record ---
Author Organization [facility] Address [address] [facility] [place] [address] Care Team Providers Care Turntable Man Name Role Phone Jennifer Cruz Primary Care [...] W/U Status Risk Notes Problem Alcohol dependence (20986585) Uncomplicated alcohol dependence (F10.20) Active confirmed Problem Opioid dependence (74485742) Uncomplicated opioid dependence (F11.20) Active confirmed Plan Of Treatment No Information Insurance Providers Payer Name Payer Address Payer Phone Subscriber Number Group Number Insured Name Patient Relationship to Insured Coverage Start Date Coverage End Date [facility] [address] [address] [place] [phone] [id number] Mariama Pantoja Self - patient is the insured 4 Medical (General) History Surgical History Surgery Date(Month/Year) rt kidney blood clot tubal hysterectomy nasal septum sx broke neck
== END 2024-12-03 23:59 | disposition home or self-care (01) ==
LOC: RT 13:33
PROVIDERS: PCP Family Medicine; Visit Provider Family Medicine
DX: I99.9 Unspecified disorder of circulatory system (principal); I10 Essential (primary) hypertension; E78.5 Hyperlipidemia, unspecified; R93.89 Abnormal findings on diagnostic imaging of other specified body structures; Z87.891 Personal history of nicotine dependence
CPT/HCPCS: 93880